=== PATIENT | male | born 1990 | race Caucasian/White ===

== ENCOUNTER 2018-12-23 20:13 | Emergency (ER) | payer OTHER ==
[2018-12-23 20:30] VITALS: RESP 18
[2018-12-23] MEDS ORDERED: SODIUM CHLORIDE 0.9% 1,000 ML IV STA ×2 (20:55→22:33)
[2018-12-23] MEDS ORDERED: ACETAMINOPHEN TAB 500 MG TAB PO STA (21:03)
--- NOTE | 2018-12-23 21:41 | XR ---
EXAMINATION TYPE: XR chest 2V DATE OF EXAM: 12/23/2018 COMPARISON: NONE HISTORY: History of diabetes, hypertension, and current tobacco use presents with fever and abdominal pain. TECHNIQUE: Frontal and lateral views of the chest are obtained. FINDINGS: There is no focal air space opacity, pleural effusion, or pneumothorax seen. The cardiac silhouette size is within normal limits. The osseous structures are intact. IMPRESSION: No acute cardiopulmonary process.
[2018-12-23 21:49] LABS: ALT 15 U/L (21-72); AST 20 U/L (17-59); Albumin 4.4 g/dL (3.5-5.0); Alkaline Phosphatase 107 U/L (38-126); Anion Gap 10 mmol/L; Blood Urea Nitrogen 13 mg/dL (9-20); Calcium 9.9 mg/dL (8.4-10.2); Carbon Dioxide 27 mmol/L (22-30); Chloride 98 mmol/L (98-107); Glucose 288 mg/dL (74-99); Lipase 25 U/L (23-300); Potassium 3.8 mmol/L (3.5-5.1); Sodium 135 mmol/L (137-145); Total Protein 7.5 g/dL (6.3-8.2)
[2018-12-23 22:01] LABS: Basophils # (A) 0.1 k/uL (0-0.2); Basophils % (A) 0 %; Eosinophils # (A) 0.1 k/uL (0-0.7); Eosinophils % (A) 1 %; HCT 46.3 % (39.0-53.0); HGB 15.8 gm/dL (13.0-17.5); Lymphocytes # (A) 2.1 k/uL (1.0-4.8); Lymphocytes % (A) 11 %; MCH 28.5 pg (25.0-35.0); MCHC 34.1 g/dL (31.0-37.0); MCV 83.5 fL (80.0-100.0); Mean Platelet Volume 7.3; Monocytes % (A) 5 %; Neutrophils # (A) 16.3 k/uL (1.3-7.7); Neutrophils % (A) 82 %; Platelet Count 212 k/uL (150-450); RBC 5.55 m/uL (4.30-5.90); RDW 14.8 % (11.5-15.5); WBC 19.7 k/uL (3.8-10.6)
[2018-12-23 22:10] LABS: Appearance,Urine Clear (Clear); Bilirubin,Urine Negative (Negative); Blood,Urine Negative (Negative); Color,Urine Yellow; Glucose,Urine (UA) 4+ (Negative); Ketones,Urine Trace (Negative); Leukocyte Esterase,Urine Negative (Negative); Mucus,Urine Few /hpf; Nitrite,Urine Negative (Negative); PH, Urine 5.5 (5.0-8.0); Protein,Urine 1+ (Negative); RBC,Urine 1 /hpf (0-5); Squamous Epithelial Cell,Urine 1 /hpf (0-4); Urobilinogen,Urine <2.0 mg/dL (<2.0); WBC,Urine 3 /hpf (0-5)
[2018-12-23 22:13] LABS: Specific Gravity,Urine >1.050 (1.001-1.035)
[2018-12-23 23:01] VITALS: BP 136/67; PULSE 105; TEMP 98.5
--- NOTE | 2018-12-23 23:09 | ED ---
General Adult HPI - General Chief complaint: Fever Stated complaint: Fever 104.5 Time Seen by Provider: 12/23/18 20:34 Source: patient, RN notes reviewed, old records reviewed Mode of arrival: ambulatory Limitations: no limitations - History of Present Illness Initial comments: 28-year-old male patient past medical history of type 2 diabetes presents to ED for fever. Patient is otherwise asymptomatic. Denies any other complaints at this time. Denies any cough congestion rhinitis abdominal pain nausea vomiting diarrhea chest pain shortness of breath. Systemic: Pt denies fatigue, myalgia, rash. Pt denies weakness, night sweats, weight loss. Neuro: Pt denies headache, visual disturbances, syncope or pre-syncope. HEENT: Pt denies ocular discharge or irritation, otalgia, rhinorrhea, pharyngitis or notable lymphadenopathy. Cardiopulmonary: Pt denies chest pain, SOB, heart palpitations, dyspnea on exertion. Abdominal/GI: Pt denies abdominal pain, n/v/d. : Pt denies dysuria, burning w/ urination, frequency/urgency. Denies new onset urinary or bowel incontinence. MSK: Pt denies myalgia, loss of strength or function in extremities. Neuro: Pt denies new onset weakness, paresthesias. - Related Data Allergies Allergy/AdvReac Type Severity Reaction Status Date / Time No Known Allergies Allergy Unverified 12/23/18 20:54 Review of Systems ROS Statement: Those systems with pertinent positive or pertinent negative responses have been documented in the HPI. ROS Other: All systems not noted in ROS Statement are negative. Past Medical History Past Medical History: Diabetes Mellitus, Hypertension History of Any Multi-Drug Resistant Organisms: None Reported Past Surgical History: No Surgical Hx Reported Past Psychological History: No Psychological Hx Reported Smoking Status: Current every day smoker Past Alcohol Use History: Occasional Past Drug Use History: None Reported General Exam - General Exam Comments Initial Comments: Constitutional: NAD, AOX3, Pt has pleasant affect. HEENT: NC/AT, trachea midline, neck supple, no lymphadenopathy. Posterior pharynx non erythematous, without exudates. External ears appear normal, without discharge. Mucous membranes moist. Eyes PERRLA, EOM intact. There is no scleral icterus. No pallor noted. Cardiopulmonary: RRR, no murmurs, rubs or gallops, no JVD noted. Lungs CTAB in anterior and posterior rangel. No peripheral edema. Abdominal exam: Abdomen soft and non-distended. Abdomen non-tender to palpation in all 4 quadrants. Bowel sounds active in LLQ. No hepatosplenomegaly. No ecchy mosis Neuro: CN II-XII grossly intact. No nuchal rigidity. MSK: No posterior calf tenderness bilaterally, homans sign negative bilaterally. Posterior tibialis and radial pulse +2 bilaterally. Sensation intact in upper and lower extremities. Full active ROM in upper and lower extremities, 5/5 stregnth. Limitations: no limitations Course Vital Signs 12/23/18 12/23/18 12/23/18 20:24 21:43 23:00 Temperature 100.0 F H 99.2 F 98.5 F Pulse Rate 129 H 115 H 105 H Respiratory 18 18 18 Rate Blood Pressure 145/83 136/67 O2 Sat by Pulse 98 100 98 Oximetry Medical Decision Making - Medical Decision Making 28-year-old male patient past medical history of type 2 diabetes presents to ED for fever. Patient is otherwise asymptomatic. Denies any other complaints at this time. Denies any cough congestion rhinitis abdominal pain nausea vomiting diarrhea chest pain shortness of breath. She vital signs displayed mild fever mild tachycardia. Improvement with antipyretic and IV fluids. Physical exam did not acute pathology. Laboratory investigations revealed leukocytosis of 19.7, likely reactive. CMP revealed a glycemia of 288. UA displayed +4 glucose. Acetone and influenza were negative. Chest x-ray revealed no acute process. Lactic acid within normal limits. Blood cultures were obtained. Patient administered 2 L normal saline. Patient continues asymptomatic a repeat evaluation. Patient will be discharged, patient will follow-up with primary care provider tomorrow. Patient return immediately to ER if condition worsens in any way or if new signs or symptoms develop. Patient verbalizes unders tanding. Case discussed in depth with Dr. Nuñez. - Lab Data Result diagrams: 12/23/18 21:20 12/23/18 21:20 Lab Results 12/23/18 12/23/18 12/23/18 Range/Units 21:20 21:20 21:20 WBC 19.7 H (3.8-10.6) k/uL RBC 5.55 (4.30-5.90) m/uL Hgb 15.8 (13.0-17.5) gm/dL Hct 46.3 (39.0-53.0) % MCV 83.5 (80.0-100.0) fL MCH 28.5 (25.0-35.0) pg MCHC 34.1 (31.0-37.0) g/dL RDW 14.8 (11.5-15.5) % Plt Count 212 (150-450) k/uL Neutrophils % 82 % Lymphocytes % 11 % Monocytes % 5 % Eosinophils % 1 % Basophils % 0 % Neutrophils # 16.3 H (1.3-7.7) k/uL Lymphocytes # 2.1 (1.0-4.8) k/uL Monocytes # 1.0 (0-1.0) k/uL Eosinophils # 0.1 (0-0.7) k/uL Basophils # 0.1 (0-0.2) k/uL Sodium 135 L (137-145) mmol/L Potassium 3.8 (3.5-5.1) mmol/L Chloride 98 (98-107) mmol/L Carbon Dioxide 27 (22-30) mmol/L Anion Gap 10 mmol/L BUN 13 (9-20) mg/dL Creatinine 0.58 L (0.66-1.25) mg/dL Est GFR (CKD-EPI)AfAm >90 (>60 ml/min/1.73 sqM) Est GFR (CKD-EPI)NonAf >90 (>60 ml/min/1.73 sqM) Glucose 288 H (74-99) mg/dL Plasma Lactic Acid Renzo 1.3 (0.7-2.0) mmol/L Calcium 9.9 (8.4-10.2) mg/dL Total Bilirubin 1.0 (0.2-1.3) mg/dL AST 20 (17-59) U/L ALT 15 L (21-72) U/L Alkaline Phosphatase 107 (38-126) U/L Total Protein 7.5 (6.3-8.2) g/dL Albumin 4.4 (3.5-5.0) g/dL Lipase 25 (23-300) U/L Urine Color Urine Appearance (Clear) Urine pH (5.0-8.0) Ur Specific [place] (1.001-1.035) Urine Protein (Negative) Urine Glucose (UA) (Negative) Urine Ketones (Negative) Urine Blood (Negative) Urine Nitrite (Negative) Urine Bilirubin (Negative) Urine Urobilinogen (<2.0) mg/dL Ur Leukocyte Esterase (Negative) Urine RBC (0-5) /hpf Urine WBC (0-5) /hpf Ur Squamous Epith Cells (0-4) /hpf Urine Mucus (None) /hpf Acetone, Qual Negative (Negative) Influenza Type A RNA (Not Detectd) Influenza Type B (PCR) (Not Detectd) 12/23/18 12/23/18 Range/Units 21:20 22:27 WBC (3.8-10.6) k/uL RBC (4.30-5.90) m/uL Hgb (13.0-17.5) gm/dL Hct (39.0-53.0) % MCV (80.0-100.0) fL MCH (25.0-35.0) pg MCHC (31.0-37.0) g/dL RDW (11.5-15.5) % Plt Count (150-450) k/uL Neutrophils % % Lymphocytes % % Monocytes % % Eosinophils % % Basophils % % Neutrophils # (1.3-7.7) k/uL Lymphocytes # (1.0-4.8) k/uL Monocytes # (0-1.0) k/uL Eosinophils # (0-0.7) k/uL Basophils # (0-0.2) k/uL Sodium (137-145) mmol/L Potassium (3.5-5.1) mmol/L Chloride (98-107) mmol/L Carbon Dioxide (22-30) mmol/L Anion Gap mmol/L BUN (9-20) mg/dL Creatinine (0.66-1.25) mg/dL Est GFR (CKD-EPI)AfAm (>60 ml/min/1.73 sqM) Est GFR (CKD-EPI)NonAf (>60 ml/min/1.73 sqM) Glucose (74-99) mg/dL Plasma Lactic Acid Renzo (0.7-2.0) mmol/L Calcium (8.4-10.2) mg/dL Total Bilirubin (0.2-1.3) mg/dL AST (17-59) U/L ALT (21-72) U/L Alkaline Phosphatase (38-126) U/L Total Protein (6.3-8.2) g/dL Albumin (3.5-5.0) g/dL Lipase (23-300) U/L Urine Color Yellow Urine Appearance Clear (Clear) Urine pH 5.5 (5.0-8.0) Ur Specific [place] >1.050 H (1.001-1.035) Urine Protein 1+ H (Negative) Urine Glucose (UA) 4+ H (Negative) Urine Ketones Trace H (Negative) Urine Blood Negative (Negative) Urine Nitrite Negative (Negative) Urine Bilirubin Negative (Negative) Urine Urobilinogen <2.0 (<2.0) mg/dL Ur Leukocyte Esterase Negative (Negative) Urine RBC 1 (0-5) /hpf Urine WBC 3 (0-5) /hpf Ur Squamous Epith Cells 1 (0-4) /hpf Urine Mucus Few H (None) /hpf Acetone, Qual (Negative) Influenza Type A RNA Not Detected (Not Detectd) Influenza Type B (PCR) Not Detected (Not Detectd) Disposition Clinical Impression: Fever Disposition: HOME SELF-CARE Condition: Stable Instructions (If sedation given, give patient instructions): Fever in Adults (ED) Additional Instructions: Patient to adhere to previously discussed treatment plan and will take medication(s) as directed. Patient to follow up with PCP in 1-2 days. Patient to return to ED if symptoms do not improve. Follow-up with primary care provider tomorrow. Return immediately to ER if new signs or symptoms develop or if condition worsens in any way. Continue to monitor blood sugar at home. Is patient prescribed a controlled substance at d/c from ED?: No Referrals: None,Stated [Primary Care Provider] - 1-2 days
== END 2018-12-23 23:35 | disposition home or self-care (01) ==
LOC: EC 20:13
DX: R50.9 Fever, unspecified (principal); R00.0 Tachycardia, unspecified; E11.9 Type 2 diabetes mellitus without complications; F17.200 Nicotine dependence, unspecified, uncomplicated; D72.829 Elevated white blood cell count, unspecified
CPT/HCPCS: 36415; 71046; 80053; 81001; 82009; 83605; 83690; 85025; 87040; 87502; 96360; 96361; 99284

== ENCOUNTER 2018-12-25 19:14 | Emergency (ER) | payer OTHER ==
--- NOTE | 2018-12-25 19:50 | ED ---
General Adult HPI - General Source: patient Mode of arrival: ambulatory Limitations: no limitations <Kyle Tucker - Last Filed: 12/25/18 23:45> <Ascencion Noel - Last Filed: 12/27/18 08:22> - General Chief complaint: Urogenital Stated complaint: Testicle Swelling Time Seen by Provider: 12/25/18 19:27 - History of Present Illness Initial comments: Patient is a 28-year-old male presenting to emergency Department with bilateral testicular swelling. Patient reports that he was at the emergency department 2 days ago for uncontrolled fever which resolved and then yesterday night he developed scrotal pain and swelling. Patient does not report any pain at rest but it is exacerbated on palpation and with movement. Patient reports tenderness on the posterior right testicle. Patient reports one episode of n ausea and vomiting yesterday. Patient denies any abdominal pain. Patient also reports pain along the right inguinal ligament. Patient denies taking any medication to relieve the pain. Patient states that he is in a monogamous relationship and is not concerned for STDs. He does report unprotected sex with his significant other who was also present. Patient denies any fever, diarrhea, chest pain, lightheadedness, dizziness. Patient denies dysuria, hematuria, hesitancy, incomplete emptying, urgency or penile discharge. Patient states that he is a gek-wjsrkda-kivtqeswe diabetic but has not taken his medication due to high cost. Patient is also diagnosed with hypertension for which he is prescribed lisinopril but has not been taking it. (Kyle Tucker) - Related Data Home Medications Medication Instructions Recorded Confirmed Janumet(Unknown) 1 tab PO DAILY 12/25/18 12/25/18 Lisinopril [Zestril] 10 mg PO DAILY 12/25/18 12/25/18 Meloxicam [Mobic] 15 mg PO DAILY 12/25/18 12/25/18 Previous Rx's Medication Instructions Recorded Doxycycline Hyclate 100 mg PO BID #28 tab 12/26/18 Allergies Allergy/AdvReac Type Severity Reaction Status Date / Time No Known Allergies Allergy Verified 12/25/18 20:32 Review of Systems ROS Other: All systems not noted in ROS Statement are negative. <Kyle Tucker - Last Filed: 12/25/18 23:45> ROS Other: All systems not noted in ROS Statement are negative. <LisajohnathanAscencion - Last Filed: 12/27/18 08:22> ROS Statement: Those systems with pertinent positive or pertinent negative responses have been documented in the HPI. Past Medical History Past Medical History: Diabetes Mellitus, Hypertension History of Any Multi-Drug Resistant Organisms: None Reported Past Surgical History: No Surgical Hx Reported Past Psychological History: No Psychological Hx Reported Smoking Status: Current every day smoker Past Alcohol Use History: Occasional Past Drug Use History: None Reported <Kyle Tucker - Last Filed: 12/25/18 23:45> General Exam Limitations: no limitations General appearance: alert, in no apparent distress Head exam: Present: atraumatic, normocephalic, normal inspection Eye exam: Present: normal appearance Neck exam: Present: normal inspection Respiratory exam: Present: normal lung sounds bilaterally Cardiovascular Exam: Present: normal rhythm, tachycardia, normal heart sounds GI/Abdominal exam: Present: soft. Absent: tenderness exam: Present: testicular tenderness, scrotal swelling (Bilateral), other (Positive cremasteric reflex bilaterally). Absent: urethral discharge External exam: Present: erythema Extremities exam: Present: normal inspection Neurological exam: Present: alert, oriented X3 Psychiatric exam: Present: normal affect, normal mood Skin exam: Present: warm, intact, normal color <CaitlinKyle - Last Filed: 12/25/18 23:45> Course Vital Signs 12/25/18 12/25/18 12/25/18 19:15 20:30 20:35 Temperature 97.9 F 99.1 F Pulse Rate 127 H 148 H Respiratory 20 22 Rate Blood Pressure 136/83 162/108 O2 Sat by Pulse 98 98 Oximetry 12/25/18 12/25/18 12/25/18 20:44 21:03 21:26 Temperature 102.6 F H Pulse Rate 144 H 149 H 130 H Respiratory 20 20 18 Rate Blood Pressure 177/80 124/85 125/87 O2 Sat by Pulse 98 96 96 Oximetry 12/25/18 12/25/18 12/25/18 21:49 22:25 22:54 Temperature 100.9 F H Pulse Rate 130 H 128 H 125 H Respiratory 22 20 18 Rate Blood Pressure 127/62 117/56 122/57 O2 Sat by Pulse 96 96 97 Oximetry 12/25/18 12/25/18 12/26/18 23:06 23:33 00:01 Temperature 98.7 F Pulse Rate 121 H 117 H Respiratory 20 18 Rate Blood Pressure 134/62 117/52 O2 Sat by Pulse 96 97 Oximetry 12/26/18 12/26/18 01:46 02:14 Temperature 98.6 F Pulse Rate 118 H 117 H Respiratory 20 18 Rate Blood Pressure 131/54 130/62 O2 Sat by Pulse 97 97 Oximetry Medical Decision Making - Lab Data Result diagrams: 12/25/18 20:45 12/25/18 20:45 <Kyle Tucker - Last Filed: 12/25/18 23:45> - Lab Data Result diagrams: 12/25/18 20:45 12/25/18 20:45 <Ascencion Noel - Last Filed: 12/27/18 08:22> - Medical Decision Making Patient is a 28-year-old male presented to the emergency department with scrotal pain and swelling. Duplex ultrasound was obtained of the scrotum. Ultrasound is negative for mass or testicular torsion but is showing varicocele on the left testicle. CBC, CMP, lactic acid were collected patient is unable to give a urine sample at the moment due to the scrotal swelling causing difficulty voiding. Patient was given 2 g of Rocephin and 100 g of doxycycline. Patient is given 3 L of fluids. 1 g of Tylenol helped control the fever. Lactate returned elevated and CBC is positive for leukocytosis. His glucose was elevated the patient was given 6 units of regular insulin. The patient's heart rate was also elevated at 150 beats per minutes he was given 20 g of labetalo l. At this moment transfer care will be delegated to Dr. Noel. (Kyle Tucker) I saw this patient in conjunction with the physician mechanic assistant. I performed ind ependent history and physical exam. Agree with case management. Patient is feeling well following fluids and antibiotics and requests to go home. Appropriate further care and follow-up as well as return parameters discussed (Ascencion Noel) - Lab Data Lab Results 12/25/18 12/25/18 12/25/18 Range/Units 20:45 20:45 20:45 WBC 19.4 H (3.8-10.6) k/uL RBC 5.26 (4.30-5.90) m/uL Hgb 14.8 (13.0-17.5) gm/dL Hct 44.6 (39.0-53.0) % MCV 84.8 (80.0-100.0) fL MCH 28.2 (25.0-35.0) pg MCHC 33.3 (31.0-37.0) g/dL RDW 14.3 (11.5-15.5) % Plt Count 209 (150-450) k/uL Neutrophils % 89 % Lymphocytes % 6 % Monocytes % 4 % Eosinophils % 0 % Basophils % 0 % Neutrophils # 17.3 H (1.3-7.7) k/uL Lymphocytes # 1.2 (1.0-4.8) k/uL Monocytes # 0.7 (0-1.0) k/uL Eosinophils # 0.1 (0-0.7) k/uL Basophils # 0.0 (0-0.2) k/uL Sodium 138 (137-145) mmol/L Potassium 4.2 (3.5-5.1) mmol/L Chloride 99 (98-107) mmol/L Carbon Dioxide 27 (22-30) mmol/L Anion Gap 12 mmol/L BUN 9 (9-20) mg/dL Creatinine 0.62 L (0.66-1.25) mg/dL Est GFR (CKD-EPI)AfAm >90 (>60 ml/min/1.73 sqM) Est GFR (CKD-EPI)NonAf >90 (>60 ml/min/1.73 sqM) Glucose 299 H (74-99) mg/dL POC Glucose (mg/dL) (75-99) mg/dL POC Glu Biomathematician ID Lactic Ac Sepsis Rflx Plasma Lactic Acid Renzo 3.6 H* (0.7-2.0) mmol/L Calcium 9.2 (8.4-10.2) mg/dL Total Bilirubin 0.7 (0.2-1.3) mg/dL AST 15 L (17-59) U/L ALT 11 L (21-72) U/L Alkaline Phosphatase 119 (38-126) U/L Total Protein 6.9 (6.3-8.2) g/dL Albumin 3.9 (3.5-5.0) g/dL Urine Color Urine Appearance (Clear) Urine pH (5.0-8.0) Ur Specific [place] (1.001-1.035) Urine Protein (Negative) Urine Glucose (UA) (Negative) Urine Ketones (Negative) Urine Blood (Negative) Urine Nitrite (Negative) Urine Bilirubin (Negative) Urine Urobilinogen (<2.0) mg/dL Ur Leukocyte Esterase (Negative) Urine RBC (0-5) /hpf Urine WBC (0-5) /hpf Ur Squamous Epith Cells (0-4) /hpf Urine Mucus (None) /hpf 12/25/18 12/25/18 12/26/18 Range/Units 22:00 23:31 00:54 WBC (3.8-10.6) k/uL RBC (4.30-5.90) m/uL Hgb (13.0-17.5) gm/dL Hct (39.0-53.0) % MCV (80.0-100.0) fL MCH (25.0-35.0) pg MCHC (31.0-37.0) g/dL RDW (11.5-15.5) % Plt Count (150-450) k/uL Neutrophils % % Lymphocytes % % Monocytes % % Eosinophils % % Basophils % % Neutrophils # (1.3-7.7) k/uL Lymphocytes # (1.0-4.8) k/uL Monocytes # (0-1.0) k/uL Eosinophils # (0-0.7) k/uL Basophils # (0-0.2) k/uL Sodium (137-145) mmol/L Potassium (3.5-5.1) mmol/L Chloride (98-107) mmol/L Carbon Dioxide (22-30) mmol/L Anion Gap mmol/L BUN (9-20) mg/dL Creatinine (0.66-1.25) mg/dL Est GFR (CKD-EPI)AfAm (>60 ml/min/1.73 sqM) Est GFR (CKD-EPI)NonAf (>60 ml/min/1.73 sqM) Glucose (74-99) mg/dL POC Glucose (mg/dL) 240 H (75-99) mg/dL POC Glu Biomathematician ID Hetal Mcmullen Lactic Ac Sepsis Rflx Y Plasma Lactic Acid Renzo 1.3 (0.7-2.0) mmol/L Calcium (8.4-10.2) mg/dL Total Bilirubin (0.2-1.3) mg/dL AST (17-59) U/L ALT (21-72) U/L Alkaline Phosphatase (38-126) U/L Total Protein (6.3-8.2) g/dL Albumin (3.5-5.0) g/dL Urine Color Urine Appearance (Clear) Urine pH (5.0-8.0) Ur Specific [place] (1.001-1.035) Urine Protein (Negative) Urine Glucose (UA) (Negative) Urine Ketones (Negative) Urine Blood (Negative) Urine Nitrite (Negative) Urine Bilirubin (Negative) Urine Urobilinogen (<2.0) mg/dL Ur Leukocyte Esterase (Negative) Urine RBC (0-5) /hpf Urine WBC (0-5) /hpf Ur Squamous Epith Cells (0-4) /hpf Urine Mucus (None) /hpf 12/26/18 Range/Units 02:03 WBC (3.8-10.6) k/uL RBC (4.30-5.90) m/uL Hgb (13.0-17.5) gm/dL Hct (39.0-53.0) % MCV (80.0-100.0) fL MCH (25.0-35.0) pg MCHC (31.0-37.0) g/dL RDW (11.5-15.5) % Plt Count (150-450) k/uL Neutrophils % % Lymphocytes % % Monocytes % % Eosinophils % % Basophils % % Neutrophils # (1.3-7.7) k/uL Lymphocytes # (1.0-4.8) k/uL Monocytes # (0-1.0) k/uL Eosinophils # (0-0.7) k/uL Basophils # (0-0.2) k/uL Sodium (137-145) mmol/L Potassium (3.5-5.1) mmol/L Chloride (98-107) mmol/L Carbon Dioxide (22-30) mmol/L Anion Gap mmol/L BUN (9-20) mg/dL Creatinine (0.66-1.25) mg/dL Est GFR (CKD-EPI)AfAm (>60 ml/min/1.73 sqM) Est GFR (CKD-EPI)NonAf (>60 ml/min/1.73 sqM) Glucose (74-99) mg/dL POC Glucose (mg/dL) (75-99) mg/dL POC Glu Biomathematician ID Lactic Ac Sepsis Rflx Plasma Lactic Acid Renzo (0.7-2.0) mmol/L Calcium (8.4-10.2) mg/dL Total Bilirubin (0.2-1.3) mg/dL AST (17-59) U/L ALT (21-72) U/L Alkaline Phosphatase (38-126) U/L Total Protein (6.3-8.2) g/dL Albumin (3.5-5.0) g/dL Urine Color Yellow Urine Appearance Clear (Clear) Urine pH 6.0 (5.0-8.0) Ur Specific [place] 1.045 H (1.001-1.035) Urine Protein 1+ H (Negative) Urine Glucose (UA) 4+ H (Negative) Urine Ketones Trace H (Negative) Urine Blood Negative (Negative) Urine Nitrite Negative (Negative) Urine Bilirubin Negative (Negative) Urine Urobilinogen 2.0 (<2.0) mg/dL Ur Leukocyte Esterase Negative (Negative) Urine RBC 2 (0-5) /hpf Urine WBC 1 (0-5) /hpf Ur Squamous Epith Cells 1 (0-4) /hpf Urine Mucus Rare H (None) /hpf Disposition <Kyle Tucker - Last Filed: 12/25/18 23:45> Is patient prescribed a controlled substance at d/c from ED?: No <Ascencion Noel - Last Filed: 12/27/18 08:22> Clinical Impression: Epididymitis Disposition: HOME SELF-CARE Condition: Good Instructions (If sedation given, give patient instructions): Epididymitis (ED) Prescriptions: Doxycycline Hyclate 100 mg PO BID #28 tab Referrals: Mackenzie Holt DO [Primary Care Provider] - 1-2 days
--- NOTE | 2018-12-25 20:41 | US ---
EXAMINATION TYPE: US scrotum with doppler. Grayscale and color Doppler Duplex imaging performed of yandel esquivel scrotum. DATE OF EXAM: 12/25/2018 COMPARISON: NONE CLINICAL HISTORY: Pain. Bilateral testicular tenderness and swelling x 2 days, fever EXAM MEASUREMENTS: TESTICLES: Right Testicle: 4.3 x 1.8 x 2.7 cm Left Testicle: 4.3 x 2.3 x 2.8 cm EPIDIDYMIS HEAD: Right Epididymis: 0.7 x 1.1 x 1.6 cm Left Epididymis: 0.7 x 1.1 x 1.5 cm Doppler performed to assess for testicular vascularity; good bilateral color flow and waveforms are s een. There is no evidence of testicular torsion. Presence of hydroceles: no Presence of varicoceles: left: mildly prominent vessels that increased with valsalva Scrotal wall thickening IMPRESSION: There is mild left-sided varicocele. No evidence of testicular torsion or mass.
[2018-12-25] MEDS ORDERED: cefTRIAXone IN SWFI 1,000 MG/10 ML SYRINGE IVP STA (20:56)
[2018-12-25] MEDS ORDERED: LABETALOL SYRINGE 5 MG/ML IVP STA (21:00)
[2018-12-25] MEDS ORDERED: SODIUM CHLORIDE 0.9% 2,000 ML IV STA (21:00)
[2018-12-25] MEDS ORDERED: ACETAMINOPHEN TAB 500 MG TAB PO STA ×2 (21:13→21:50)
[2018-12-25 21:15] LABS: Basophils % (A) 0 %; Eosinophils # (A) 0.1 k/uL (0-0.7); Eosinophils % (A) 0 %; HCT 44.6 % (39.0-53.0); HGB 14.8 gm/dL (13.0-17.5); Lymphocytes # (A) 1.2 k/uL (1.0-4.8); Lymphocytes % (A) 6 %; MCH 28.2 pg (25.0-35.0); MCHC 33.3 g/dL (31.0-37.0); MCV 84.8 fL (80.0-100.0); Mean Platelet Volume 7.4; Monocytes # (A) 0.7 k/uL (0-1.0); Monocytes % (A) 4 %; Neutrophils # (A) 17.3 k/uL (1.3-7.7); Neutrophils % (A) 89 %; Platelet Count 209 k/uL (150-450); RBC 5.26 m/uL (4.30-5.90); RDW 14.3 % (11.5-15.5); WBC 19.4 k/uL (3.8-10.6)
[2018-12-25 21:28] LABS: ALT 11 U/L (21-72); AST 15 U/L (17-59); Albumin 3.9 g/dL (3.5-5.0); Alkaline Phosphatase 119 U/L (38-126); Anion Gap 12 mmol/L; Blood Urea Nitrogen 9 mg/dL (9-20); Calcium 9.2 mg/dL (8.4-10.2); Carbon Dioxide 27 mmol/L (22-30); Chloride 99 mmol/L (98-107); Glucose 299 mg/dL (74-99); Potassium 4.2 mmol/L (3.5-5.1); Sodium 138 mmol/L (137-145); Total Bilirubin 0.7 mg/dL (0.2-1.3); Total Protein 6.9 g/dL (6.3-8.2)
[2018-12-25] MEDS ORDERED: INSULIN REGULAR 100 UNIT/ML VIAL IV ONE (22:05)
[2018-12-25] MEDS ORDERED: DOXYCYCLINE 100 MG in SODIUM CHLORIDE 0.9% 100 ML IVPB ONE (22:06)
[2018-12-25] MEDS ORDERED: SODIUM CHLORIDE 0.9% 1,000 ML IV STA (23:33)
[2018-12-25 23:36] LABS: Glucose,Whole Blood 240 mg/dL (75-99)
[2018-12-26 01:47] VITALS: TEMP 98.6
[2018-12-26 02:16] VITALS: BP 130/62; PULSE 117; RESP 18
[2018-12-26 02:16] LABS: Appearance,Urine Clear (Clear); Bilirubin,Urine Negative (Negative); Blood,Urine Negative (Negative); Color,Urine Yellow; Glucose,Urine (UA) 4+ (Negative); Ketones,Urine Trace (Negative); Leukocyte Esterase,Urine Negative (Negative); Mucus,Urine Rare /hpf; Nitrite,Urine Negative (Negative); Protein,Urine 1+ (Negative); RBC,Urine 2 /hpf (0-5); Specific Gravity,Urine 1.045 (1.001-1.035); Squamous Epithelial Cell,Urine 1 /hpf (0-4)
== END 2018-12-26 02:16 | disposition home or self-care (01) ==
LOC: EC 19:14
DX: N45.1 Epididymitis (principal); R74.0 Nonspecific elevation of levels of transaminase and lactic acid dehydrogenase [LDH]; D72.829 Elevated white blood cell count, unspecified; E11.9 Type 2 diabetes mellitus without complications; I10 Essential (primary) hypertension; F17.200 Nicotine dependence, unspecified, uncomplicated; Z79.1 Long term (current) use of non-steroidal anti-inflammatories (NSAID); Z79.84 Long term (current) use of oral hypoglycemic drugs; Z79.899 Other long term (current) drug therapy; Z53.8 Procedure and treatment not carried out for other reasons
CPT/HCPCS: 36415; 93005; 80053; 83605; 85025; 87040; 93975; 76870; 99284; 96365; 96367; 96375; 96361 ×2; J0696; 81001; 87491; 87591

== ENCOUNTER 2018-12-28 10:10 | Inpatient (IN) | payer OTHER ==
[2018-12-28] MEDS ORDERED: VANCOMYCIN 2,250 MG in SODIUM CHLORIDE 0.9% 500 ML 500 ML IVPB STA (10:47)
[2018-12-28] MEDS ORDERED: CEFEPIME 1 GM in SODIUM CHLORIDE 0.9% 50 ML IVPB STA (10:47)
[2018-12-28] MEDS ORDERED: CLINDAMYCIN 600 MG in DEXTROSE 5% IN WATER 50 ML IVPB STA ×2 (10:47)
[2018-12-28] MEDS ORDERED: SODIUM CHLORIDE 0.9% 2,000 ML IV ONE (10:47)
[2018-12-28] MEDS ORDERED: MORPHINE SULFATE 4 MG/ML SYRINGE IVP STA (10:47)
[2018-12-28] MEDS ORDERED: SODIUM CHLORIDE 0.9% 500 ML 500 ML IV ONE (10:47)
[2018-12-28] MEDS ORDERED: ONDANSETRON 4 MG/2 ML VIAL IVP STA (10:47)
--- NOTE | 2018-12-28 10:59 | ED ---
General Adult HPI - General Chief complaint: Urogenital Stated complaint: swollen testicles Time Seen by Provider: 12/28/18 10:32 Source: patient Mode of arrival: ambulatory Limitations: no limitations - History of Present Illness Initial comments: Patient is a 28-year-old male with a history of diabetes presents with a chief complaint of testicular pain as going on since . He reports having a fever that was 104 on but has been around 101 since his initial visit. Review of patient's chart shows that he was extensively worked up including blood work, blood cultures, an ultrasound of the testicles. He returns today because the pain is much worse. He states he is having severe pain, his pain is exacerbated with bending, standing, and moving. There are no alleviating factors. Timing is constant. - Related Data Home Medications Medication Instructions Recorded Confirmed Lisinopril [Zestril] 10 mg PO DAILY 12/25/18 12/28/18 sitaGLIPtin PHOS/metFORMIN HCL 1 tab PO DAILY 12/28/18 12/28/18 [Janumet Xr 100-1,000 mg Tablet] Previous Rx's Medication Instructions Recorded Doxycycline Hyclate 100 mg PO BID #28 tab 12/26/18 Allergies Allergy/AdvReac Type Severity Reaction Status Date / Time No Known Allergies Allergy Verified 12/28/18 10:53 Review of Systems ROS Statement: Those systems with pertinent positive or pertinent negative responses have been documented in the HPI. ROS Other: All systems not noted in ROS Statement are negative. Constitutional: Reports: fever, chills Genitourinary: Reports: testicular pain, testicular mass Skin: Reports: lesions, change in color Past Medical History Past Medical History: Diabetes Mellitus, Hypertension History of Any Multi-Drug Resistant Organisms: None Reported Past Surgical History: No Surgical Hx Reported Past Psychological History: No Psychological Hx Reported Smoking Status: Current every day smoker Past Alcohol Use History: Occasional Past Drug Use History: None Reported - Past Family History Mother Family Medical History: No Reported History Additional Family Medical History / Comment(s): Mother is healthy. Cancer runs in maternal grandmother's side of family and MIs run in maternal grandfather's side of family Father Additional Family Medical History / Comment(s): "heart problems" General Exam Limitations: no limitations General appearance: alert, in no apparent distress Head exam: Present: atraumatic, normocephalic Eye exam: Present: normal appearance ENT exam: Present: normal exam Neck exam: Present: normal inspection Respiratory exam: Present: normal lung sounds bilaterally. Absent: respiratory distress, wheezes Cardiovascular Exam: Present: normal rhythm, tachycardia GI/Abdominal exam: Present: soft, tenderness (Tenderness in the suprapubic region), other (Patient has erythema, crepitus of the suprapubic region.) Rectal exam: Present: other (Patient has spreading of a soft tissue infection near the rectum, skin is discollored the perineum) exam: Present: scrotal swelling, other (scrotal swelling and crepitus with necrotic skin inferiorly ) Extremities exam: Present: normal inspection Back exam: Present: normal inspection Neurological exam: Present: alert, oriented X3 Psychiatric exam: Present: normal mood Skin exam: Present: warm, dry, intact, other (see exam ) Course Vital Signs 12/28/18 12/28/18 12/28/18 10:23 12:11 12:50 Temperature 99.1 F 100.9 F H Pulse Rate 110 H 111 H 116 H Respiratory 20 18 18 Rate Blood Pressure 150/68 144/103 151/95 O2 Sat by Pulse 96 96 97 Oximetry Medical Decision Making - Medical Decision Making Patient is a 28-year-old male presents with a chief complaint of scrotal pain. This is third visit to the emergency department. 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 Case discussed with Dr. Ramirez and Dr. Bullard. Dr. Bullard will evaluate the patient and schedule debridement. patient to be admitted to medicine for diabetes control. Initial vital signs show tachycardia at 100 and tender otherwise stable. Patient given 2.5 L of IV fluid, started on vancomycin, cefepime, and clindamycin. Blood work including lactic acid, venous blood gas, and blood cultures were drawn. EKG performed at 11:12 AM shows a sinus tachycardia with a rate of 112 bpm, segs are otherwise within normal limits, no acute signs of ischemia present. 11:22 AM Case discussed with Dr. Ryan who accepts admission. Consult placed Dr. Bullard, and Dr. Leonard. 1:[address] Bullard was in the emergency department to evaluate the patient. He has a surgical plan. Patient persistently tachycardic now at 118, clinically appears stable, he is alert and oriented. Patient will be given an additional liter of IV fluid.Lab evaluation shows a leukocytosis of 16.4, venous blood gas within normal limits. Labs are otherwise significant for hyperglycemia, and alk phos of 162. Patient stable for admission to a telemetry bed - Lab Data Result diagrams: 12/28/18 11:15 12/28/18 11:15 Lab Results 12/28/18 12/28/18 12/28/18 Range/Units 11:15 11:15 11:15 WBC 16.4 H (3.8-10.6) k/uL RBC 4.73 (4.30-5.90) m/uL Hgb 13.1 (13.0-17.5) gm/dL Hct 41.3 (39.0-53.0) % MCV 87.2 (80.0-100.0) fL MCH 27.7 (25.0-35.0) pg MCHC 31.8 (31.0-37.0) g/dL RDW 14.3 (11.5-15.5) % Plt Count 273 (150-450) k/uL Neutrophils % 87 % Lymphocytes % 6 % Monocytes % 4 % Eosinophils % 1 % Basophils % 0 % Neutrophils # 14.2 H (1.3-7.7) k/uL Lymphocytes # 1.0 (1.0-4.8) k/uL Monocytes # 0.6 (0-1.0) k/uL Eosinophils # 0.2 (0-0.7) k/uL Basophils # 0.1 (0-0.2) k/uL VBG pH 7.43 H (7.31-7.41) VBG pCO2 40 (37-51) mmHg VBG HCO3 26 (24-28) mmol/L Sodium 139 (137-145) mmol/L Potassium 3.6 (3.5-5.1) mmol/L Chloride 104 (98-107) mmol/L Carbon Dioxide 26 (22-30) mmol/L Anion Gap 9 mmol/L BUN 16 (9-20) mg/dL Creatinine 0.47 L (0.66-1.25) mg/dL Est GFR (CKD-EPI)AfAm >90 (>60 ml/min/1.73 sqM) Est GFR (CKD-EPI)NonAf >90 (>60 ml/min/1.73 sqM) Glucose 261 H (74-99) mg/dL Plasma Lactic Acid Renzo (0.7-2.0) mmol/L Calcium 9.0 (8.4-10.2) mg/dL Total Bilirubin 0.4 (0.2-1.3) mg/dL AST 17 (17-59) U/L ALT 27 (21-72) U/L Alkaline Phosphatase 162 H (38-126) U/L Total Protein 6.4 (6.3-8.2) g/dL Albumin 3.2 L (3.5-5.0) g/dL 12/28/18 Range/Units 11:15 WBC (3.8-10.6) k/uL RBC (4.30-5.90) m/uL Hgb (13.0-17.5) gm/dL Hct (39.0-53.0) % MCV (80.0-100.0) fL MCH (25.0-35.0) pg MCHC (31.0-37.0) g/dL RDW (11.5-15.5) % Plt Count (150-450) k/uL Neutrophils % % Lymphocytes % % Monocytes % % Eosinophils % % Basophils % % Neutrophils # (1.3-7.7) k/uL Lymphocytes # (1.0-4.8) k/uL Monocytes # (0-1.0) k/uL Eosinophils # (0-0.7) k/uL Basophils # (0-0.2) k/uL VBG pH (7.31-7.41) VBG pCO2 (37-51) mmHg VBG HCO3 (24-28) mmol/L Sodium (137-145) mmol/L Potassium (3.5-5.1) mmol/L Chloride (98-107) mmol/L Carbon Dioxide (22-30) mmol/L Anion Gap mmol/L BUN (9-20) mg/dL Creatinine (0.66-1.25) mg/dL Est GFR (CKD-EPI)AfAm (>60 ml/min/1.73 sqM) Est GFR (CKD-EPI)NonAf (>60 ml/min/1.73 sqM) Glucose (74-99) mg/dL Plasma Lactic Acid Renzo 1.3 (0.7-2.0) mmol/L Calcium (8.4-10.2) mg/dL Total Bilirubin (0.2-1.3) mg/dL AST (17-59) U/L ALT (21-72) U/L Alkaline Phosphatase (38-126) U/L Total Protein (6.3-8.2) g/dL Albumin (3.5-5.0) g/dL Disposition Clinical Impression: Scrotal abscess, Saskia gangrene, Sepsis Disposition: ADMITTED IP TO THIS HOSP Condition: Fair Is patient prescribed a controlled substance at d/c from ED?: No Decision to Admit Reason: Admit from EC - Out of Hospital Transfer - Req. Specs Out of Hospital Transfer - Requested Specifics: Telemetry Unit
[2018-12-28] MEDS ORDERED: VANCOMYCIN IV PER PHARMACY 1 EACH MISC MISCELLANE ONE (11:00)
[2018-12-28] MEDS ORDERED: ONDANSETRON 4 MG/2 ML VIAL IVP PRN ×2 (11:19→13:19)
[2018-12-28] MEDS ORDERED: NALOXONE 0.4 MG/ML 1 ML VIAL IV PRN (11:19)
[2018-12-28 11:27] LABS: VBG PH 7.43 (7.31-7.41)
[2018-12-28 11:28] LABS: Basophils # (A) 0.1 k/uL (0-0.2); Basophils % (A) 0 %; Eosinophils # (A) 0.2 k/uL (0-0.7); Eosinophils % (A) 1 %; HCT 41.3 % (39.0-53.0); HGB 13.1 gm/dL (13.0-17.5); Lymphocytes % (A) 6 %; MCH 27.7 pg (25.0-35.0); MCHC 31.8 g/dL (31.0-37.0); MCV 87.2 fL (80.0-100.0); Mean Platelet Volume 7.1; Monocytes # (A) 0.6 k/uL (0-1.0); Monocytes % (A) 4 %; Neutrophils # (A) 14.2 k/uL (1.3-7.7); Neutrophils % (A) 87 %; Platelet Count 273 k/uL (150-450); RBC 4.73 m/uL (4.30-5.90); RDW 14.3 % (11.5-15.5); WBC 16.4 k/uL (3.8-10.6)
[2018-12-28 11:43] LABS: ALT 27 U/L (21-72); AST 17 U/L (17-59); Albumin 3.2 g/dL (3.5-5.0); Alkaline Phosphatase 162 U/L (38-126); Anion Gap 9 mmol/L; Blood Urea Nitrogen 16 mg/dL (9-20); Carbon Dioxide 26 mmol/L (22-30); Chloride 104 mmol/L (98-107); Glucose 261 mg/dL (74-99); Potassium 3.6 mmol/L (3.5-5.1); Sodium 139 mmol/L (137-145); Total Bilirubin 0.4 mg/dL (0.2-1.3); Total Protein 6.4 g/dL (6.3-8.2)
--- NOTE | 2018-12-28 12:57 | P.GSCN ---
History of Present Illness Consult date: 12/28/18 Reason for Consult: Scrotal abscess-possible Saskia's gangrene History of present illness: The patient is a 28-year-old male admitted through the emergency room for evaluation of scrotal swelling related to what appears to be a scrotal abscess with early gangrene. The patient's problem began around 12/23/2018 when he apparently was noted to have a fever at home. He came to the emergency room where he was evaluated and says that the cause of the fever was not clear. His white blood count at that time was 19,000. He returned to the emergency room on 12/25 again with a fever and at that time had scrotal pain, swelling and erythema. Scrotal ultrasound at that time showed no evidence of abscess. His white blood count was 19,400. He was given IV Rocephin and doxycycline and discharged on oral doxycycline. The pain and swelling have increased over the last 2 days and he continues to have a fever. When seen in the emergency room today he was noted to have erythema extending into the suprapubic area and groins bilaterally. There was marked scrotal swelling and what appeared to be some early necrosis of skin in the dependent midline of the scrotum. The patient has been started on vancomycin, cefepime and Cleocin and has been admitted for IV antibiotics and scrotal debridement. The patient has no previous history of scrotal infection. He has diabetes which has not been under optimal control. He says his sugars are usually in the high 200s. He says he's had no recent difficulties far as voiding or with bowel movements. Review of Systems - Constitutional Reports chills, Reports fever - Cardiovascular Denies chest pain, Denies shortness of breath, Denies syncope - Respiratory Denies cough, Denies wheezing - Gastrointestinal Reports abdominal pain (Lower abdominal and groins) - Genitourinary Reports as per HPI Past Medical History Past Medical History: Diabetes Mellitus, Hypertension Additional Past Medical History / Comment(s): NIDDM type II History of Any Multi-Drug Resistant Organisms: None Reported Past Surgical History: No Surgical Hx Reported Smoking Status: Current every day smoker - Past Family History Mother Family Medical History: No Reported History Additional Family Medical History / Comment(s): Mother is healthy. Cancer runs in maternal grandmother's side of family and MIs run in maternal grandfather's side of family Father Additional Family Medical History / Comment(s): "heart problems" Medications and Allergies Home Medications Medication Instructions Recorded Confirmed Type Lisinopril [Zestril] 10 mg PO DAILY 12/25/18 12/28/18 History Doxycycline Hyclate 100 mg PO BID #28 tab 12/26/18 12/28/18 Rx sitaGLIPtin PHOS/metFORMIN HCL 1 tab PO DAILY 12/28/18 12/28/18 History [Janumet Xr 100-1,000 mg Tablet] Allergies Allergy/AdvReac Type Severity Reaction Status Date / Time No Known Allergies Allergy Verified 12/28/18 10:53 Surgical - Exam Vital Signs Temp Pulse Resp BP Pulse Ox 99.1 F 110 H 20 150/68 96 12/28/18 10:23 12/28/18 10:23 12/28/18 10:23 12/28/18 10:23 12/28/18 10:23 - General moderate pain, obese - ENT no hearing loss - Neck no masses, no lymphadectomy - Respiratory normal respiratory effort - Abdomen Abdomen: soft, no organomegaly Hernia: none - Genitourinary other (There is moderately severe scrotal edema. There is a small (less than 1 cm (closed area of dusky skin in the midline of the dependent scrotum which could be early skin necrosis. There appears to be some weeping of fluid in the posterior scrotum but no definite purulent discharge. There is erythema of the scrotum which extends into the right and left groin and in the suprapubic area. There is no fluctuance in the scrotum or groins. The penis is edematous but otherwise unremarkable. Neither testicle could be palpated well.) Results - Labs 12/28/18 11:15 12/28/18 11:15 Abnormal Lab Results - Last 24 Hours (Table) 12/28/18 12/28/18 12/28/18 Range/Units 11:15 11:15 11:15 WBC 16.4 H (3.8-10.6) k/uL Neutrophils # 14.2 H (1.3-7.7) k/uL VBG pH 7.43 H (7.31-7.41) Creatinine 0.47 L (0.66-1.25) mg/dL Glucose 261 H (74-99) mg/dL Alkaline Phosphatase 162 H (38-126) U/L Albumin 3.2 L (3.5-5.0) g/dL Diabetes panel 12/28/18 Range/Units 11:15 Sodium 139 (137-145) mmol/L Potassium 3.6 (3.5-5.1) mmol/L Chloride 104 (98-107) mmol/L Carbon Dioxide 26 (22-30) mmol/L BUN 16 (9-20) mg/dL Creatinine 0.47 L (0.66-1.25) mg/dL Glucose 261 H (74-99) mg/dL Calcium 9.0 (8.4-10.2) mg/dL AST 17 (17-59) U/L ALT 27 (21-72) U/L Alkaline Phosphatase 162 H (38-126) U/L Total Protein 6.4 (6.3-8.2) g/dL Albumin 3.2 L (3.5-5.0) g/dL Calcium panel 12/28/18 Range/Units 11:15 Calcium 9.0 (8.4-10.2) mg/dL Albumin 3.2 L (3.5-5.0) g/dL Pituitary panel 12/28/18 Range/Units 11:15 Sodium 139 (137-145) mmol/L Potassium 3.6 (3.5-5.1) mmol/L Chloride 104 (98-107) mmol/L Carbon Dioxide 26 (22-30) mmol/L BUN 16 (9-20) mg/dL Creatinine 0.47 L (0.66-1.25) mg/dL Glucose 261 H (74-99) mg/dL Calcium 9.0 (8.4-10.2) mg/dL Adrenal panel 12/28/18 Range/Units 11:15 Sodium 139 (137-145) mmol/L Potassium 3.6 (3.5-5.1) mmol/L Chloride 104 (98-107) mmol/L Carbon Dioxide 26 (22-30) mmol/L BUN 16 (9-20) mg/dL Creatinine 0.47 L (0.66-1.25) mg/dL Glucose 261 H (74-99) mg/dL Calcium 9.0 (8.4-10.2) mg/dL Total Bilirubin 0.4 (0.2-1.3) mg/dL AST 17 (17-59) U/L ALT 27 (21-72) U/L Alkaline Phosphatase 162 H (38-126) U/L Total Protein 6.4 (6.3-8.2) g/dL Albumin 3.2 L (3.5-5.0) g/dL Assessment and Plan (1) Scrotal abscess Narrative/Plan: The patient appears to have severe cellulitis and a probable abscess in the scrotum. It's unclear whether he has necrotic tissue in the midline of the dependent portion of the scrotum. Incision and drainage of the scrotum will be performed as soon as possible. Patient will be continued on his current antibiotics pending results of the urine cultures. Current Visit: Yes Status: Acute Code(s): N49.2 - INFLAMMATORY DISORDERS OF SCROTUM SNOMED Code(s): 45395179
[2018-12-28] MEDS ORDERED: SODIUM CHLORIDE 0.9% 1,000 ML IV ONE (13:09)
[2018-12-28] MEDS ORDERED: METOCLOPRAMIDE 5 MG/ML 2 ML VIAL IVP PRN (13:19)
[2018-12-28] MEDS ORDERED: HYDROmorphone 0.5 MG/0.5 ML SYRINGE IVP PRN (13:19)
[2018-12-28] MEDS ORDERED: LIDOCAINE 1% 20 ML VIAL (10MG/ML) FOR IV START INTRADERMA PRN (13:19)
[2018-12-28] MEDS ORDERED: LACTATED RINGERS 1,000 ML IV SCH (13:30)
[2018-12-28] MEDS ORDERED: IV FLUID CONTINUATION 400 ML IV ONE (13:33)
[2018-12-28 13:44] LABS: Glucose,Whole Blood 201 mg/dL (75-99)
[2018-12-28] MEDS ORDERED: INSULIN ASPART (NovoLOG) 100 UNIT/ML VIAL SQ ONE (13:56)
[2018-12-28] MEDS ORDERED: NEOSTIGMINE 1 MG/ML 10 ML VIAL ONE (14:05)
[2018-12-28] MEDS ORDERED: SUCCINYLCHOLINE CHLORIDE 100 MG/5 ML SYR IV ONE (14:05)
[2018-12-28] MEDS ORDERED: fentaNYL (PF) 50 MCG/ML 2 ML AMP ONE (14:05)
[2018-12-28] MEDS ORDERED: LIDOCAINE 1% INJ 10MG/ML (20 ML MDV) ONE (14:05)
[2018-12-28] MEDS ORDERED: ALBUTEROL INHALER 60 PUFF/8 GM INHALER INHALATION ONE (14:05)
[2018-12-28] MEDS ORDERED: ROCURONIUM BROMIDE 10 MG/ML 10 ML VIAL IV ONE (14:05)
[2018-12-28] MEDS ORDERED: MIDAZOLAM 2 MG/2 ML VIAL ONE (14:05)
[2018-12-28] MEDS ORDERED: GLYCOPYRROLATE 0.2 MG/ML 2 ML VIAL ONE (14:05)
[2018-12-28] MEDS ORDERED: PROPOFOL 10 MG/ML 20 ML VIAL IV ONE (14:05)
[2018-12-28] MEDS ORDERED: HYDROmorphone (PF) 1 MG/ML ONE (14:05)
[2018-12-28] MEDS ORDERED: LACTATED RINGERS 1,000 ML IV ONE (14:34)
--- NOTE | 2018-12-28 16:08 | P.OP ---
Date of Procedure: 12/28/18 Preoperative Diagnosis: Scrotal abscess Postoperative Diagnosis: Scrotal and perineal abscess with necrotizing infection. Procedure(s) Performed: Scrotal and perineal exploration with drainage and excision of devitalized tissue Anesthesia: DANIA Surgeon: Florin Bullard Estimated Blood Loss (ml): 45 Pathology: other (Wound cultures) Condition: critical Disposition: ICU Indications for Procedure: The patient is a 28-year-old male with poorly controlled diabetes who has developed progressive swelling over the last 5 or 6 days. On examination there is erythema in the suprapubic region, bilateral groins and scrotum. The scrotum is edematous and there appears to be early necrosis in the dependent portion of the scrotal skin. No fluctuant tissue was noted. A scrotal ultrasound on 12/25 showed no definite abscess cavity. Scrotal exploration is planned as the findings are very suggestive of an underlying scrotal abscess. Description of Procedure: The patient was taken the operating suite where adequate general anesthesia via orotracheal intubation was instituted. The patient was placed in the disc dorsal lithotomy position with his legs suspended from padded Seven stirrups. Pneumatic compression stockings were applied to the lower legs. The lower abdomen, groins, scrotum and perineum was then prepped with Betadine solution and draped in sterile fashion. A midline scrotal incision was made in the dependent portion of the scrotum. There was a 3 mm area of skin necrosis just to the right of the midline. Just to the left of the midline was a 2 cm diameter area of dusky skin but it was unclear whether this was necrotic. The skin was thick and edematous. Beneath the skin layer were several areas of tissue which contained air. The necrotic tissue appeared to extend posteriorly and inferiorly. The areas of necrotic tissue did not appear to involve this testicles and there was no definite extension along the region of the spermatic cords. A finger could be placed posteriorly down to near the anus where it appeared that the majority of the necrotic tissue was present. The necrotic tissue was cultured and devitalized tissue was excised down to what appeared to be normal tissue. Bleeding was controlled using electrocautery. Wound was then irrigated with saline and packed with Betadine soaked gauze. A 16-Hebrew red rubber catheter was placed in the dependent portion of the perineum and attached to the skin edge with 3-0 silk for future wound irrigation. The patient left the operating room intubated and will be transferred to the intensive care unit.
[2018-12-28 16:10] LABS: Glucose,Whole Blood 201 mg/dL (75-99)
--- NOTE | 2018-12-28 16:34 | P.CNPUL ---
History of Present Illness Consult date: 12/28/18 Chief complaint: Necrotizing infection of the scrotum/swelling/pain History of present illness: A 28-year-old male patient, obese, chronic smoker, poorly controlled diabetic, presented with progressive swelling of the scrotal area for the past 5-6 days. On examination, the patient had erythema in the suprapubic region, bilateral groin and scrotum area. The scrotum was edematous and there was signs of early necrosis of the tendon portion of the scrotal skin. No flocculent tissue was noted. Ultrasound of the scrotum was done and showed no definite abscess in the cavity. Based on that, the patient was diagnosed having Saskia's gangrene and the patient was taken to the operating room and underwent a scrotal and perianal explanation with drainage and excision of devitalized tissue. The patient has a necrotizing infection. The patient was started on broad-spectrum antibiotics and the patient was given a dose of vancomycin is also on cefepime and clindamycin. In the operating room, the patient was given 3 L of IV fluids. At a time of arrival to the operating room the patient was receiving fluids in the form of normal state rate of 30 mL an hour. The patient was still intubated on a mechanical ventilator. At that point, he was oxygenating and ventilating well. He was in the volume control mode of ventilation with tidal volume of 500 with a rate of 14 FiO2 of 50% with a PEEP of 5. At that point, I decided to stop the sedation. The patient was taken off the propofol. He woke up within the next few minutes. He was wide awake and he was following commands. He had good tidal volume and his rapid shallow breathing index was less than 80. At that point, I decide to extubate the patient a Ventimask. He has no history of any obstructive sleep apnea. No chest pain. Post exhibition he was able to talk and verbalize. No stridor. One left also related, the patient would go into sleep and he would have some occasional apneic episodes along with some moderate degree of snoring. He is on morphine for pain control. Urine is dark and concentrated. Most recent blood sugar is at 201. Review of Systems ROS unobtainable: due to mental status Past Medical History Past Medical History: Diabetes Mellitus, Hypertension Additional Past Medical History / Comment(s): NIDDM type II Alex obesity, smoker, hypertension History of Any Multi-Drug Resistant Organisms: None Reported Past Surgical History: No Surgical Hx Reported Past Psychological History: No Psychological Hx Reported Smoking Status: Current every day smoker Past Alcohol Use History: Occasional Past Drug Use History: None Reported - Past Family History Mother Family Medical History: No Reported History Additional Family Medical History / Comment(s): Mother is healthy. Cancer runs in maternal grandmother's side of family and MIs run in maternal grandfather's side of family Father Additional Family Medical History / Comment(s): "heart problems" Medications and Allergies Home Medications Medication Instructions Recorded Confirmed Type Lisinopril [Zestril] 10 mg PO DAILY 12/25/18 12/28/18 History Doxycycline Hyclate 100 mg PO BID #28 tab 12/26/18 12/28/18 Rx sitaGLIPtin PHOS/metFORMIN HCL 1 tab PO DAILY 12/28/18 12/28/18 History [Janumet Xr 100-1,000 mg Tablet] Allergies Allergy/AdvReac Type Severity Reaction Status Date / Time No Known Allergies Allergy Verified 12/28/18 10:53 Physical Exam Vitals: Vital Signs Temp Pulse Pulse Resp BP BP Pulse Ox 12/28/18 13:34 99.5 F 121 H 18 151/71 93 L 12/28/18 12:50 116 H 18 151/95 97 12/28/18 12:11 100.9 F H 111 H 18 144/103 96 12/28/18 10:23 99.1 F 110 H 20 150/68 96 Intake and Output 12/28/18 12/28/18 12/28/18 06:59 14:59 22:59 Intake Total 1000 Output Total 75 Balance 1000 -75 Intake: IV 1000 Output: Estimated Blood Loss 75 Other: Weight 124.738 kg Patient is currently extubated on a Ventimask. Calm and comfortable. Still sleepy under effective anesthetics. He is arousable and he would open up his eyes and follows some simple commands. He will go back to sleep if left on stimulated. Head exam was generally normal. There was no scleral icterus or corneal arcus. Mucous membranes were moist. Neck was supple and without jugular venous distension, thyromegaly, or carotid bruits. Carotids were easily palpable bilaterally. There was no adenopathy. Patient has a Mallampati class IV and there is no stridor. No goiter or neck masses. Lungs were clear to auscultation and percussion, and with normal diaphragmatic excursion. No wheezes or rales were noted. Cardiac exam revealed the PMI to be normally situated and sized. The rhythm was regular and no extrasystoles were noted during several minutes of auscultation. The first and second heart sounds were normal and physiologic splitting of the second heart sound was noted. There were no murmurs, rubs, clicks, or gallops. Abdominal exam revealed normal bowel sounds. The abdomen was soft, non-tender, and without masses, organomegaly, or appreciable enlargement of the abdominal aorta. The perianal area is debrided and the appropriate dressing has been applied. There is some erythema extending to the suprapubic area. A Condon cath is also in place. Examination of the extremities revealed easily palpable radial, femoral and pedal pulses. There was no cyanosis, clubbing or edema. My normal skin with the exception of the perianal area is within normal limits. Neurologically the patient is following some simple commands. His notable for extremities. Not awake enough to give me a full history. Distal and that effective anesthetics. Results - Laboratory Findings CBC and BMP: 12/28/18 11:15 12/28/18 11:15 Abnormal lab findings: Abnormal Labs 12/28/18 12/28/18 12/28/18 11:15 11:15 11:15 WBC 16.4 H Neutrophils # 14.2 H VBG pH 7.43 H Creatinine 0.47 L Glucose 261 H POC Glucose (mg/dL) Alkaline Phosphatase 162 H Albumin 3.2 L 12/28/18 12/28/18 13:42 16:04 WBC Neutrophils # VBG pH Creatinine Glucose POC Glucose (mg/dL) 201 H 201 H Alkaline Phosphatase Albumin Assessment and Plan Plan: 1 scrotal and perineal abscess/necrotizing infection/Saskia's gangrene the patient is post excoriation and drainage and excision of the devitalized tissue. Postop day #0 2 ventilator management. The patient was kept intubated on a mechanical ventilator postop and extubation process took place here in the intensive care unit. The patient is currently still lethargic and sleepy. He is able to protect his airway. There is a concern of underlying obstructive sleep apnea maintenance obesity. Snoring and apneas have been noted here in the ICU. Made a CPAP at a later stage if continues to have prolonged apneas. 3 diabetes mellitus type 2, poorly controlled 4 leukocytosis 5 hypertension 6 obesity with a BMI of 41.8 and possible obstructive sleep apnea GUSTAVO The patient was extubated here in the intensive care unit. Monitor respiratory status. Keep him on a Ventimask and switch him to a nasal cannula once fully awake. No need for any further sedation. Morphine for pain control. Cover this patient with accommodation of vancomycin, cefepime and clindamycin. Awaiting cultures that were taken intraoperatively. This is likely a poly microbial infection. Will need a PICC line at a later stage. With a surgical consultation at the later stage. Urology is on the case. We'll use Humalog sliding scale coverage for blood sugar control. May need to use an insulin drip to try to control this patient's blood sugar. Heparin subcu for a DVT prophylaxis. DuoNeb treatments on the clock. Is a chronic smoker. He is showing some signs of bronchus and wheezing. He was started on bronchodilators. We'll continue to follow. Will need dressing change and local wound care and possible reexploration at a later stage. He'll be kept in ICU for now. Resuscitative patient IV fluids. Fluid rate was increased 125 mL's an hour of normal saline.
--- NOTE | 2018-12-28 17:04 | XR ---
EXAMINATION TYPE: XR chest 1V DATE OF EXAM: 12/28/2018 COMPARISON: 12/23/2018 HISTORY: Postop TECHNIQUE: Single frontal view of the chest is obtained. FINDINGS: Heart and mediastinum are normal. There is some mild atelectasis in the left midlung. The other lung rangel are clear. There is no pleural effusion. There are chest leads. Bony thorax appears intact. IMPRESSION: There is new mild atelectasis left midlung field compared to recent exam.
[2018-12-28] MEDS ORDERED: hydrALAZINE HCL 20 MG/ML 1 ML VIAL IVP PRN (17:55)
[2018-12-28] MEDS ORDERED: KETOROLAC 30 MG/ML 1 ML VIAL IVP SCH (18:00)
[2018-12-28] MEDS: INSULIN ASPART (NovoLOG) 100 UNIT/ML VIAL SQ SCH ×2 (18:46→21:18)
[2018-12-28] MEDS: LACTATED RINGERS 1,000 ML IV SCH (19:21)
[2018-12-28] MEDS ORDERED: ALPRAZolam 0.25 MG TAB PO PRN (19:42)
[2018-12-28] MEDS ORDERED: TEMAZEPAM 15 MG CAP PO PRN (19:42)
[2018-12-28] MEDS: HEPARIN SODIUM,PORCINE 5,000 UNIT/ML 1 ML VIAL SQ SCH (19:50)
[2018-12-28] MEDS ORDERED: VANCOMYCIN 2,000 MG in SODIUM CHLORIDE 0.9% 500 ML 500 ML IVPB SCH (20:00)
[2018-12-28] MEDS ORDERED: IPRATROPIUM-ALBUTEROL 3 ML NEB INHALATION SCH (20:00)
[2018-12-28] MEDS ORDERED: IPRATROPIUM-ALBUTEROL 3 ML NEB INHALATION PRN (20:00)
[2018-12-28] MEDS: IPRATROPIUM-ALBUTEROL 3 ML NEB INHALATION SCH (20:16)
[2018-12-28] MEDS ORDERED: INSULIN DETEMIR (LEVEMIR) 100 UNIT/ML SYR SQ SCH (21:00)
--- NOTE | 2018-12-28 21:08 | HP ---
HISTORY AND PHYSICAL DATE OF SERVICE: 12/28/2018 CHIEF COMPLAINTS: Swollen testicles as well as severe perineal pain. 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 The patient noted a fever a few days ago. The patient was evaluated in the ER and subsequently currently the patient noted scrotal pain and swelling and the patient came to [facility] and was admitted for further evaluation and treatment. The patient was apparently taking antibiotics in the form of doxycycline for presumed epididymitis. At the time of admission, the patient was suspected to have Fornier's gangrene and had features of early evidence of sepsis and the patient underwent extensive surgery by Urology including scrotal exploration with drainage, excision of the devitalized tissue for scrotal and perineal abscess and possibly with necrotizing infection. The patient has been extubated and monitored in ICU at this time. There is no history of any fever, rigors or chills. No history of headache, loss of consciousness, seizures. Patient was initially taking metformin for diabetes and subsequently transferred to [facility]. 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 PAST MEDICAL HISTORY: History of diabetes type 2, hypertension, history of nicotine dependence. MEDICATIONS: Prior to admission include: 1. Janumet XR 100/1000 one p.o. daily. 2. Zestril 10 mg daily. 3. Doxycycline 100 mg p.o. b.i.d. ALLERGIES: None. FAMILY HISTORY: History of cancer and myocardial infarction. SOCIAL HISTORY: History of continued ongoing smoking. Otherwise, history of occasional alcohol intake. REVIEW OF SYSTEMS: ENT: No diminished vision. No diminished hearing. CARDIOVASCULAR: S1, S2 muffled. RESPIRATORY: Breath sounds diminished in the bases. GI no nausea or vomiting. no dysuria. No hematuria. CENTRAL NERVOUS SYSTEM: No numbness or weakness. ALLERGY/IMMUNOLOGY: No asthma or hayfever. MUSCULOSKELETAL: As mentioned earlier. HEMATOLOGY/ONCOLOGY: No history of anemia. ENDOCRINE: History of diabetes. CONSTITUTIONAL: As mentioned earlier. DERMATOLOGY: Negative. RHEUMATOLOGY: Negative. PSYCHIATRY: As mentioned earlier. PHYSICAL EXAMINATION: GENERAL: Patient is alert and oriented times three. VITAL SIGNS: Pulse 135, blood pressure 160/80, respirations 20, temperature 102.7, pulse ox 98 percent Venti mask. HEENT: Conjunctivae normal. Oral mucosa moist. NECK is no jugular venous distention. No carotid bruit. No lymph node enlargement. CARDIOVASCULAR SYSTEM: S1, S2 muffled. RESPIRATORY: Breath sounds diminished in the bases. A few scattered rhonchi and crackles. ABDOMEN: Soft, nontender. No mass palpable. Examination of the perineum dressed after incision and drainage. LEGS: No edema. No swelling. NERVOUS SYSTEM: Higher functions as mentioned earlier. Moves all 4 limbs. No focal motor, or sensory deficits. LYMPHATICS: No lymph nodes palpable in the neck, axillae or groin. SKIN: As mentioned earlier. JOINTS: No active deforming arthropathy. LAB STUDIES: WBC 16.2, hemoglobin 13.1, sodium 139, potassium 3.5, glucose 261, albumin 3.2. ASSESSMENT: 1. Acute scrotal and perineal abscess with possible necrotizing infection status post scrotal perineal exploration with drainage of excision and devitalized tissue with possible sepsis present on admission. 2. Diabetes mellitus type 1, uncontrolled. 3. Increased WBC. 4. History of obesity. 5. History of nicotine dependence. 6. History of noncompliance. RECOMMENDATIONS AND DISCUSSION: In this 28-year-old gentleman who presented with multiple complex medical issues, we will monitor the patient closely, continue the current medications, management and symptomatic treatment. We will initiate broad-spectrum IV antibiotics. Closely follow with Urology, Infectious Disease and as well as Dr. Sprague from the ICU point of view. Otherwise, resume the home medications. DVT prophylaxis. Proton pump inhibitors. Obtain the cultures. We will continue the insulin currently and once the patient is stabilized, the patient will be sent on home dose of insulin also. Hemoglobin A1c also checked. Prognosis guarded because of multiple complex medical issues. Further recommendations to follow. A copy of dictation being forwarded to Dr. Holt who is the primary care physician. MMPATELL / EUGENEN: [id number] / MTDD
[2018-12-28 21:13] LABS: Glucose,Whole Blood 168 mg/dL (75-99)
[2018-12-28] MEDS: HYDROcodone/APAP 5-325MG 1 EACH TAB PO PRN (21:16)
[2018-12-28] MEDS: CEFEPIME 2 GM in SODIUM CHLORIDE 0.9% 100 ML IVPB SCH (21:22)
--- NOTE | 2018-12-28 21:54 | P.CONS ---
History of Present Illness - Reason for Consult Consult date: 12/28/18 - Chief Complaint pain in the scrotum - History of Present Illness 28-year-old male known history Diabetes mellitus type 2 that has been poorly controlled. He relates that he's had some recent medication changes and his blood sugars have not been nearly as well controlled as they were in the past. It is also related that he often will smoke 2 packs of cigarettes a day when he is stressed and working. 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 The patient relates approximately 6 days before coming to hospital he started to feel poorly with some generalized malaise low-grade fever and discomfort to his scrotum. The following days he had increasing scrotal swelling and discomfort. The day of admission he was feeling very poorly the most inferior aspect of the scrotum was extremely tender and become quite swollen and constantly presented. At the time of admission it was evident that there was some necrosis to the scrotum and urgent surgical consult with urology occurred. The patient is or even taken in the operating room and the surgical debridement has occurred to the scrotum. There was some minimal necrotizing infection and debridement has occurred. Patient was transferred to the intensive care unit shortly thereafter was extubated and is now sitting upright and talking. With this, mouth is very dry and looks forward to being able to drink water in the near future. Review of Systems HEENT:Denies headache or acute visual change. Denies sinus or mouth discomforts. Denies neck stiffness or pain. Denies significant oral cavity pain. Denies difficulty on swallowing. Mouth is dry Lungs: Denies significant shortness of breath, cough, sputum production, or hemoptysis. Cardiovascular: Denies significant shortness of breath, chest pain, chest wall pain, orthopnea, dyspnea on exertion, syncope Gastrointestinal:Denies nausea, vomiting, diarrhea, constipation, hematemesis, melena, hematochezia. No no significant change of bowel habit noticed. Musculoskeletal: denies significant myalgias or arthralgias. No new joint swelling. Denies new back pain. Skin: As per the HPI scrotal infection that is now status post surgical intervention pain is currently well controlled Neuro: Denies headache or visual change. Denies any new onset weakness or difficulty with ambulation. Denies falls or seizures. Psychiatric:Denies anxiety or depression. Endocrine: Denies significant fatigue, denies significant weight loss or weight gain. Past Medical History Past Medical History: Diabetes Mellitus, Hypertension Additional Past Medical History / Comment(s): NIDDM type II Alex obesity, smoker, hypertension History of Any Multi-Drug Resistant Organisms: None Reported Past Surgical History: No Surgical Hx Reported Past Psychological History: No Psychological Hx Reported Additional Psychological History / Comment(s): single but lives with his girlfriend. No children. No animals. At the most smokes 2 packs a day, does not want smoking cessation medication. no alcohol use. 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 No experience. no recent international travel Smoking Status: Current every day smoker Past Alcohol Use History: Occasional Past Drug Use History: None Reported - Past Family History Mother Family Medical History: No Reported History Additional Family Medical History / Comment(s): Mother is healthy. Cancer runs in maternal grandmother's side of family and MIs run in maternal grandfather's side of family Father Additional Family Medical History / Comment(s): "heart problems" Medications and Allergies Home Medications and Allergies Comment(s): Current Medications Hydrocodone Bitart/Acetaminophen ([place] 5-325) 1 each PO Q6HR PRN PRN Reason: Pain Last Admin: 12/28/18 21:16 Dose: 1 each Documented by: Albuterol/Ipratropium (Duoneb 0.5 Mg-3 Mg/3 Ml Soln) 3 ml INHALATION RT-QID [facility] Last Admin: 12/28/18 20:16 Dose: 3 ml Documented by: Albuterol/Ipratropium (Duoneb 0.5 Mg-3 Mg/3 Ml Soln) 3 ml INHALATION RT-Q2H PRN PRN Reason: Shortness Of Breath Or Wheezing Alprazolam (Xanax) 0.25 mg PO TID PRN PRN Reason: Anxiety Clonidine (Catapres) 0.1 mg PO Q4HR PRN PRN Reason: Hypertension Heparin Sodium (Porcine) (Heparin) 5,000 unit SQ Q8HR [facility] Last Admin: 12/28/18 19:50 Dose: 5,000 unit Documented by: Hydralazine HCl (Apresoline) 10 mg IVP Q4HR PRN PRN Reason: Blood Pressure - High Vancomycin HCl 2,000 mg/ (Sodium Chloride) 500 mls @ 167 mls/hr IVPB Q8H [facility] Cefepime HCl 2 gm/ Sodium (Chloride) 100 mls @ 200 mls/hr IVPB Q12HR [facility] Last Admin: 12/28/18 21:22 Dose: 200 mls/hr Documented by: Clindamycin Phosphate 600 mg/ (Dextrose/Water) 54 mls @ 50 mls/hr IVPB Q8HR [facility] Lactated Ringer's (Lactated Ringers) 1,000 mls @ 125 mls/hr IV .Q8H [facility] Last Admin: 12/28/18 19:21 Dose: 125 mls/hr Documented by: Insulin Aspart (Novolog) 0 unit SQ Q4HR [facility]; Protocol Last Admin: 12/28/18 21:18 Dose: 2 unit Documented by: Insulin Detemir (Levemir) 15 unit SQ HS [facility] Last Admin: 12/28/18 21:10 Dose: Not Given Documented by: Lidocaine HCl (.Xylocaine 1% Inj (10mg/Ml) For Iv Start) 0.1 ml INTRADERMA PER PROTOCOL PRN PRN Reason: IV Start Lisinopril (Zestril) 10 mg PO DAILY [facility] Morphine Sulfate (Morphine Sulfate (Inj)) 4 mg IV Q4HR PRN PRN Reason: Severe Pain Multivitamins (Theragran) 1 each PO DAILY@1200 [facility] Naloxone HCl (Narcan) 0.2 mg IV Q2M PRN PRN Reason: Opioid Reversal Nicotine (Habitrol 14mg/24hr Patch) 1 patch TRANSDERM DAILY [facility] Ondansetron HCl (Zofran) 4 mg IVP Q8HR PRN PRN Reason: Nausea And Vomiting Pantoprazole Sodium (Protonix) 40 mg PO AC-BRKFST [facility] Temazepam (Restoril) 15 mg PO HS PRN PRN Reason: Insomnia Home Medications Medication Instructions Recorded Confirmed Type Lisinopril [Zestril] 10 mg PO DAILY 12/25/18 12/28/18 History Doxycycline Hyclate 100 mg PO BID #28 tab 12/26/18 12/28/18 Rx sitaGLIPtin PHOS/metFORMIN HCL 1 tab PO DAILY 12/28/18 12/28/18 History [Janumet Xr 100-1,000 mg Tablet] Allergies Allergy/AdvReac Type Severity Reaction Status Date / Time No Known Allergies Allergy Verified 12/28/18 10:53 Physical Exam Vitals: Vital Signs Temp Pulse Pulse Resp BP BP Pulse Ox 12/28/18 20:24 100 12/28/18 20:23 130 H 12/28/18 20:14 129 H 15 12/28/18 19:00 122 H 19 117/65 96 12/28/18 18:00 100.2 F H 124 H 19 132/65 94 L 12/28/18 17:00 129 H 8 L 151/76 94 L 12/28/18 16:30 138 H 11 L 165/80 90 L 12/28/18 16:15 102.7 F H 134 H 20 97 12/28/18 13:34 99.5 F 121 H 18 151/71 93 L 12/28/18 12:50 116 H 18 151/95 97 12/28/18 12:11 100.9 F H 111 H 18 144/103 96 12/28/18 10:23 99.1 F 110 H 20 150/68 96 Intake and Output 12/28/18 12/28/18 12/28/18 06:59 14:59 22:59 Intake Total 1000 375 Output Total 300 Balance 1000 75 Intake: IV 1000 375 LR 375 Output: Urine 225 Estimated Blood Loss 75 Other: Voiding Method Indwelling Catheter Weight 124.738 kg HEENT: Anicteric conjunctiva are pink and moist nasal mucosa grossly intact without significant lesions, there is no thrush. Neck: The neck is supple without significant lymphadenopathy or thyromegaly. Lungs: Good bilateral air entry without significant crackles or wheezing. There is no significant bronchial sounds. There is no egophony or dullness. Heart: Regular rate and rhythm with an audible S1-S2, no S3 no S4. There is no significant murmur click or rub, PMI was nondisplaced. Abdomen: Positive bowel sounds soft and nontender without palpable masses or organomegaly. There was no guarding or rebound. Extremities: The upper extremities have excellent pulses they are symmetric, no significant petechiae or telangiectasia. No splinter hemorrhages were noted. The lower extremities are free from significant edema. The peripheral pulses were 2+ and symmetric. Neuro: Awake alert oriented to person place and time. There are no acute new gross focal sensory motor deficits. skin: The scrotum is evidence of the postop Dressing in place that is not removed since just returned from surgery. Results CBC & Chem 7: 12/28/18 11:15 12/28/18 11:15 Labs: Abnormal Lab Results - Last 24 Hours (Table) 12/28/18 12/28/18 12/28/18 Range/Units 11:15 11:15 11:15 WBC 16.4 H (3.8-10.6) k/uL Neutrophils # 14.2 H (1.3-7.7) k/uL VBG pH 7.43 H (7.31-7.41) Creatinine 0.47 L (0.66-1.25) mg/dL Glucose 261 H (74-99) mg/dL POC Glucose (mg/dL) (75-99) mg/dL Alkaline Phosphatase 162 H (38-126) U/L Albumin 3.2 L (3.5-5.0) g/dL 12/28/18 12/28/18 12/28/18 Range/Units 13:42 16:04 20:58 WBC (3.8-10.6) k/uL Neutrophils # (1.3-7.7) k/uL VBG pH (7.31-7.41) Creatinine (0.66-1.25) mg/dL Glucose (74-99) mg/dL POC Glucose (mg/dL) 201 H 201 H 168 H (75-99) mg/dL Alkaline Phosphatase (38-126) U/L Albumin (3.5-5.0) g/dL Laboratory Results WBC 16.4 k/uL (3.8-10.6) H 12/28/18 11:15 RBC 4.73 m/uL (4.30-5.90) 12/28/18 11:15 Hgb 13.1 gm/dL (13.0-17.5) 12/28/18 11:15 Hct 41.3 % (39.0-53.0) 12/28/18 11:15 MCV 87.2 fL (80.0-100.0) 12/28/18 11:15 MCH 27.7 pg (25.0-35.0) 12/28/18 11:15 MCHC 31.8 g/dL (31.0-37.0) 12/28/18 11:15 RDW 14.3 % (11.5-15.5) 12/28/18 11:15 Plt Count 273 k/uL (150-450) 12/28/18 11:15 Neutrophils % 87 % 12/28/18 11:15 Lymphocytes % 6 % 12/28/18 11:15 Monocytes % 4 % 12/28/18 11:15 Eosinophils % 1 % 12/28/18 11:15 Basophils % 0 % 12/28/18 11:15 Neutrophils # 14.2 k/uL (1.3-7.7) H 12/28/18 11:15 Lymphocytes # 1.0 k/uL (1.0-4.8) 12/28/18 11:15 Monocytes # 0.6 k/uL (0-1.0) 12/28/18 11:15 Eosinophils # 0.2 k/uL (0-0.7) 12/28/18 11:15 Basophils # 0.1 k/uL (0-0.2) 12/28/18 11:15 VBG pH 7.43 (7.31-7.41) H 12/28/18 11:15 VBG pCO2 40 mmHg (37-51) 12/28/18 11:15 VBG HCO3 26 mmol/L (24-28) 12/28/18 11:15 Sodium 139 mmol/L (137-145) 12/28/18 11:15 Potassium 3.6 mmol/L (3.5-5.1) 12/28/18 11:15 Chloride 104 mmol/L (98-107) 12/28/18 11:15 Carbon Dioxide 26 mmol/L (22-30) 12/28/18 11:15 Anion Gap 9 mmol/L 12/28/18 11:15 BUN 16 mg/dL (9-20) 12/28/18 11:15 Creatinine 0.47 mg/dL (0.66-1.25) L 12/28/18 11:15 Est GFR (CKD-EPI)AfAm >90 (>60 ml/min/1.73 sqM) 12/28/18 11:15 Est GFR (CKD-EPI)NonAf >90 (>60 ml/min/1.73 sqM) 12/28/18 11:15 Glucose 261 mg/dL (74-99) H 12/28/18 11:15 POC Glucose (mg/dL) 168 mg/dL (75-99) H 12/28/18 20:58 POC Glu Bisque Tile Burner ID Mary Hickman 12/28/18 20:58 Plasma Lactic Acid Renzo 1.3 mmol/L (0.7-2.0) 12/28/18 11:15 Calcium 9.0 mg/dL (8.4-10.2) 12/28/18 11:15 Total Bilirubin 0.4 mg/dL (0.2-1.3) 12/28/18 11:15 AST 17 U/L (17-59) 12/28/18 11:15 ALT 27 U/L (21-72) 12/28/18 11:15 Alkaline Phosphatase 162 U/L (38-126) H 12/28/18 11:15 Total Protein 6.4 g/dL (6.3-8.2) 12/28/18 11:15 Albumin 3.2 g/dL (3.5-5.0) L 12/28/18 11:15 Assessment and Plan (1) Saskia gangrene Narrative/Plan: 28-year-old male presents to Hospital with a six-day history of increasing pain and discomfort to the scrotum and eventually noticed that he was ill with fever and chills and constantly presented to the emergency center. There is evidence of necrotic area of the scrotum and was seen by urology urgently taken to the operating room. He is now status post the incision and drainage and debridement of the scrotum. Upon transfer to the ICU he remained intubated he has now been extubated and is awake and alert without acute changes. He is still having excellent pain control in the postoperative time f rame. Antibiotic therapy is appropriate this point in time with cefepime and clindamycin and vancomycin. Clindamycin to reduce toxin production. The patient forcefully is not in septic shock and hopefully with antibiotics surgery in his resuscitation will have improvement. We discussed with a girlfriend and sister the significant importance of improving his blood glucose control in a smoking cessation will be extremely important in his healing process. Hemoglobin A1c should be updated. Cultures and response to therapy will drive the antibiotic choices at discharge. When possible and will be assessed and will assist with wound care potentially negative pressure therapy can be utilized. Current Visit: Yes Status: Acute Code(s): N49.3 - SASKIA GANGRENE SNOMED Code(s): 278981116 (2) Sepsis Current Visit: Yes Status: Acute Code(s): A41.9 - SEPSIS, UNSPECIFIED ORGANISM SNOMED Code(s): 97794780 (3) Fever Current Visit: No Status: Acute Code(s): R50.9 - FEVER, UNSPECIFIED SNOMED Code(s): 360740424 (4) Uncontrolled type 2 diabetes mellitus with complication Current Visit: Yes Status: Acute Code(s): E11.8 - TYPE 2 DIABETES MELLITUS WITH UNSPECIFIED COMPLICATIONS; E11.65 - TYPE 2 DIABETES MELLITUS WITH HYPERGLYCEMIA SNOMED Code(s): 26351394
[2018-12-28] MEDS: ACETAMINOPHEN TAB 500 MG TAB PO PRN (22:38)
[2018-12-28] MEDS: MORPHINE SULFATE 4 MG/ML SYRINGE IV PRN (22:48)
[2018-12-29 00:14] LABS: Glucose,Whole Blood 193 mg/dL (75-99)
[2018-12-29] MEDS: INSULIN ASPART (NovoLOG) 100 UNIT/ML VIAL SQ SCH ×6 (00:22→22:28)
[2018-12-29] MEDS: HEPARIN SODIUM,PORCINE 5,000 UNIT/ML 1 ML VIAL SQ SCH ×3 (01:32→16:55)
[2018-12-29] MEDS: CLINDAMYCIN 600 MG in DEXTROSE 5% IN WATER 50 ML IVPB SCH ×6 (01:32→16:54)
[2018-12-29] MEDS: LACTATED RINGERS 1,000 ML IV SCH ×3 (01:38→22:21)
[2018-12-29 04:46] LABS: Glucose,Whole Blood 176 mg/dL (75-99)
[2018-12-29] MEDS: MORPHINE SULFATE 4 MG/ML SYRINGE IV PRN ×2 (05:12→11:20)
[2018-12-29 05:46] LABS: Basophils # (A) 0.1 k/uL (0-0.2); Basophils % (A) 1 %; Eosinophils # (A) 0.1 k/uL (0-0.7); Eosinophils % (A) 0 %; HGB 11.8 gm/dL (13.0-17.5); Hypochromasia Slight; Lymphocytes # (A) 1.6 k/uL (1.0-4.8); Lymphocytes % (A) 10 %; MCH 27.8 pg (25.0-35.0); MCV 89.8 fL (80.0-100.0); Mean Platelet Volume 7.1; Monocytes # (A) 0.8 k/uL (0-1.0); Monocytes % (A) 5 %; Neutrophils # (A) 13.3 k/uL (1.3-7.7); Neutrophils % (A) 81 %; Platelet Count 258 k/uL (150-450); RBC 4.23 m/uL (4.30-5.90); RDW 14.3 % (11.5-15.5); WBC 16.4 k/uL (3.8-10.6)
[2018-12-29 05:55] LABS: Anion Gap 10 mmol/L; Blood Urea Nitrogen 11 mg/dL (9-20); Calcium 8.1 mg/dL (8.4-10.2); Carbon Dioxide 24 mmol/L (22-30); Chloride 103 mmol/L (98-107); Glucose 170 mg/dL (74-99); Potassium 3.6 mmol/L (3.5-5.1); Sodium 137 mmol/L (137-145)
[2018-12-29] MEDS: VANCOMYCIN 2,000 MG in SODIUM CHLORIDE 0.9% 500 ML 500 ML IVPB SCH ×3 (06:38→22:29)
[2018-12-29] MEDS ORDERED: Potassium Replacement Protocol 1 EACH MISC MISCELLANE PRN (07:06)
[2018-12-29] MEDS ORDERED: POTASSIUM CHLORIDE ER 20 MEQ TAB.ER PO ONE (08:00)
[2018-12-29] MEDS: IPRATROPIUM-ALBUTEROL 3 ML NEB INHALATION SCH ×4 (08:20→20:47)
--- NOTE | 2018-12-29 08:52 | P.PN ---
Subjective Progress Note Date: 12/29/18 On today's evaluation of 12/29/2018, the patient is awake and alert extubated on few liters of oxygen by nasal cannula. No respiratory distress. He is hungry and he is asking for food. No altered mentation per no tachycardia. No hypotension. He is complaining still of some pain at the surgical area over his scrotum. Erythema and his superpubic area still present. The scrotum was inspected and the incision was opened inspect with a drain in place. There is no significant drainage or drainage material out of the scrotum. The patient is on a combination of antibiotics and the patient is currently on a combination of vancomycin, cefepime and clindamycin. Cultures still pending for now. Urine output is improved as the patient is receiving 125 mL of lactated Ringer on an hourly basis. No nausea. No vomiting. No other complaints otherwise for now. He is on Levemir insulin 15 units at bedtime along with a NovoLog sliding scale coverage. No issues with pain for the time being. Objective - Vital Signs Vital signs: Vital Signs Temp 97.3 F L 12/29/18 04:00 Pulse 109 H 12/29/18 08:41 Resp 16 12/29/18 07:00 BP 130/80 12/29/18 07:00 Pulse Ox 96 12/29/18 07:00 Intake & Output 12/28/18 12/29/18 12/29/18 18:59 06:59 18:59 Intake Total 1250 2390 625 Output Total 75 1057 60 Balance 1175 1333 565 Weight 124.738 kg 136.1 kg Intake: IV 1250 2200 625 Cefepime 1 gm In Sodium 100 Chloride 0.9% 50 ml @ 100 mls/hr IVPB ONCE STA Rx# :[id number] Cefepime 2 gm In Sodium 100 Chloride 0.9% 100 ml @ 200 mls/hr IVPB Q12HR [facility] Rx#:[id number] LR 250 625 Lactated Ringers 1,000 ml 875 125 @ 125 mls/hr IV .Q8H [facility] Rx#:[id number] Vancomycin 2,000 mg In 500 500 Sodium Chloride 0.9% 500 ml 500 ml @ 167 mls/hr IVPB Q8H [facility] Rx#: [id number] Tube Feeding 190 Output: Urine 1057 60 Estimated Blood Loss 75 Other: Voiding Method Indwelling Catheter Indwelling Catheter - Exam Patient is currently extubated on nasal canula . Calm and comfortable. Head exam was generally normal. There was no scleral icterus or corneal arcus. Mucous membranes were moist. Neck was supple and without jugular venous distension, thyromegaly, or carotid bruits. Carotids were easily palpable bilaterally. There was no adenopathy. Patient has a Mallampati class IV and there is no stridor. No goiter or neck masses. Lungs were clear to auscultation and percussion, and with normal diaphragmatic excursion. No wheezes or rales were noted. Cardiac exam revealed the PMI to be normally situated and sized. The rhythm was regular and no extrasystoles were noted during several minutes of auscultation. The first and second heart sounds were normal and physiologic splitting of the second heart sound was noted. There were no murmurs, rubs, clicks, or gallops. Abdominal exam revealed normal bowel sounds. The abdomen was soft, non-tender, and without masses, organomegaly, or appreciable enlargement of the abdominal a joel. The perianal area is debrided and the appropriate dressing has been applied. There is some erythema extending to the suprapubic area. A Condon cath is also in place. Examination of the extremities revealed easily palpable radial, femoral and pedal pulses. There was no cyanosis, clubbing or edema. My normal skin with the exception of the perianal area is within normal limits. Neurologically the patient is alert and awake 3 without any focal neurological deficits. - Labs CBC & Chem 7: 12/29/18 05:03 12/29/18 05:03 Labs: Abnormal Lab Results - Last 24 Hours (Table) 12/28/18 12/28/18 12/28/18 Range/Units 11:15 11:15 11:15 WBC 16.4 H (3.8-10.6) k/uL RBC (4.30-5.90) m/uL Hgb (13.0-17.5) gm/dL Hct (39.0-53.0) % Neutrophils # 14.2 H (1.3-7.7) k/uL VBG pH 7.43 H (7.31-7.41) Creatinine 0.47 L (0.66-1.25) mg/dL Glucose 261 H (74-99) mg/dL POC Glucose (mg/dL) (75-99) mg/dL Calcium (8.4-10.2) mg/dL Alkaline Phosphatase 162 H (38-126) U/L Albumin 3.2 L (3.5-5.0) g/dL 12/28/18 12/28/18 12/28/18 Range/Units 13:42 16:04 20:58 WBC (3.8-10.6) k/uL RBC (4.30-5.90) m/uL Hgb (13.0-17.5) gm/dL Hct (39.0-53.0) % Neutrophils # (1.3-7.7) k/uL VBG pH (7.31-7.41) Creatinine (0.66-1.25) mg/dL Glucose (74-99) mg/dL POC Glucose (mg/dL) 201 H 201 H 168 H (75-99) mg/dL Calcium (8.4-10.2) mg/dL Alkaline Phosphatase (38-126) U/L Albumin (3.5-5.0) g/dL 12/29/18 12/29/18 12/29/18 Range/Units 00:11 04:32 05:03 WBC 16.4 H (3.8-10.6) k/uL RBC 4.23 L (4.30-5.90) m/uL Hgb 11.8 L (13.0-17.5) gm/dL Hct 38.0 L (39.0-53.0) % Neutrophils # 13.3 H (1.3-7.7) k/uL VBG pH (7.31-7.41) Creatinine (0.66-1.25) mg/dL Glucose (74-99) mg/dL POC Glucose (mg/dL) 193 H 176 H (75-99) mg/dL Calcium (8.4-10.2) mg/dL Alkaline Phosphatase (38-126) U/L Albumin (3.5-5.0) g/dL 12/29/18 Range/Units 05:03 WBC (3.8-10.6) k/uL RBC (4.30-5.90) m/uL Hgb (13.0-17.5) gm/dL Hct (39.0-53.0) % Neutrophils # (1.3-7.7) k/uL VBG pH (7.31-7.41) Creatinine 0.49 L (0.66-1.25) mg/dL Glucose 170 H (74-99) mg/dL POC Glucose (mg/dL) (75-99) mg/dL Calcium 8.1 L (8.4-10.2) mg/dL Alkaline Phosphatase (38-126) U/L Albumin (3.5-5.0) g/dL Microbiology - Last 24 Hours (Table) 12/28/18 14:50 Gram Stain - Preliminary Other - Other Wound Culture - Preliminary 12/28/18 14:50 Gram Stain - Preliminary Other - Other Wound Culture - Preliminary 12/28/18 14:50 Gram Stain - Preliminary Scrotum Tissue Culture - Preliminary 12/28/18 14:50 Gram Stain - Preliminary Other - Other Wound Culture - Preliminary 12/28/18 23:16 Urine Culture - Preliminary Urine,Catheterized 12/28/18 14:50 Anaerobic Culture - Preliminary Scrotum 12/28/18 14:50 Anaerobic Culture - Preliminary Scrotum 12/28/18 14:50 Anaerobic Culture - Preliminary Scrotum 12/28/18 14:50 Anaerobic Culture - Preliminary Scrotum Assessment and Plan Plan: 1 scrotal and perineal abscess/necrotizing infection/Saskia's gangrene the patient is post excoriation and drainage and excision of the devitalized tissue. Postop day #1. Currently, on a combination of antibiotics utilizing cefepime and clindamycin and vancomycin. 2 ventilator management. The patient is extubated and currently on 2 L of oxygen by nasal cannula 3 diabetes mellitus type 2, poorly controlled on outpatient basis and blood sugar today is down to 170 4 leukocytosis, white cell count is at 16.4 5 hypertension 6 obesity with a BMI of 41.8 and possible obstructive sleep apnea PLAN The patient will be kept on the same antibiotic coverage. Reevaluation of the surgical wound by urology. Hemodynamically stable. Continue IV fluids. Continue monitoring this patient's condition and awaiting the results of the culture. ID is on the case. Urology on the case. We'll continue to follow.
[2018-12-29] MEDS: PANTOPRAZOLE 40 MG TABLET PO SCH (09:21)
[2018-12-29 09:23] LABS: Glucose,Whole Blood 164 mg/dL (75-99)
[2018-12-29] MEDS: CEFEPIME 2 GM in SODIUM CHLORIDE 0.9% 100 ML IVPB SCH ×2 (09:24→22:29)
[2018-12-29] MEDS: NICOTINE 14MG/24HR PATCH TRANSDERM SCH (09:24)
[2018-12-29] MEDS: ACETAMINOPHEN TAB 500 MG TAB PO PRN (09:40)
[2018-12-29] MEDS: LISINOPRIL 10 MG TAB PO SCH (09:40)
[2018-12-29] MEDS: IOPAMIDOL-300 CONTRAST 30 ML VIAL (ORAL USE) PO PRN ×2 (11:02→11:25)
--- NOTE | 2018-12-29 11:35 | P.PN ---
Progress Note - Text Progress Note Date: 12/29/18 The patient has been afebrile since early this morning. He is tachycardic but his blood pressure has remained stable. He says he has no pain unless the suprapubic and groin areas or scrotum are palpated. His glucose has been under better control and is now less than 200. White blood count is improved at 16,400. BUN/creatinine are 11/0.49. On examination the erythema in the suprapubic area and groins is unchanged from yesterday. There is a small area of dusky skin in the right groin superior to the scrotum but no definite fluctuance is palpable. There are some areas of necrotic skin in the midline of the scrotum adjacent to the incision which will eventually need debridement. I probed the incision towards the perineum and the remains of a moderate amount of necrotic material in this area. The patient is scheduled to undergo a computed tomography scan of the abdomen and pelvis early this afternoon. It's unclear at this time whether he will need additional debridement under anesthesia.
--- NOTE | 2018-12-29 12:58 | P.GSCN ---
History of Present Illness Consult date: 12/29/18 Reason for Consult: perineal abscess Requesting physician: Florin Bullard History of present illness: CHIEF COMPLAINT: perineal abscess HISTORY OF PRESENT ILLNESS: 28-year-old male admitted to the hospital with necrotizing infection of scrotum. Patient underwent exploration with drainage and excision of devitalized tissue with urology. General surgery was consulted for further management. Patient examined at the bedside with Dr. Layton. Reports pain is controlled at this time. He is hungry and is requesting to be started on a diet. PAST MEDICAL HISTORY: See list. PAST SURGICAL HISTORY: See list. SOCIAL HISTORY: No illicit drug use. REVIEW OF SYSTEMS: CONSTITUTIONAL: Denies fever or chills. HEENT: Denies blurred vision, vision changes, or eye pain. Denies hemoptysis CARDIOVASCULAR: Denies chest pain or pressure. RESPIRATORY: No shortness of breath. GASTROINTESTINAL: Refer to [facility] for pertinent findings HEMATOLOGIC: Denies bleeding disorders. GENITOURINARY: Denies any blood in urine. SKIN: Denies pruitis. Denies rash. PHYSICAL EXAM: VITAL SIGNS: Reviewed. GENERAL: Well-developed in no acute distress. HEENT: No sclera icterus. Extraocular movements grossly intact. Moist buccal mucosa. Head is atraumatic, normocephalic. ABDOMEN: Soft. Nondistended. Nontender. NEUROLOGIC: Alert and oriented. Cranial nerves II through XII grossly intact. SKIN: Surgical dressing to scrotal region. ASSESSMENT: 1. Scrotal/perineal abscess/necrotizing infection, status post exploration with drainage and excision of devitalized tissue PLAN: 1. Continue treatment of abscess per urology. Further debridements per urology service 2. Obtain CT with oral contrast 3. Dr. Layton discussed the possibility of performing diverting colostomy to allow for optimal wound healing. Will discuss further with Dr. Bullard. Nurse practitioner note has been reviewed by physician. Signing provider agrees with the documented findings, assessment, and plan of care. Past Medical History Past Medical History: Diabetes Mellitus, Hypertension Additional Past Medical History / Comment(s): NIDDM type II Alex obesity, smoker, hypertension History of Any Multi-Drug Resistant Organisms: None Reported Past Surgical History: No Surgical Hx Reported Past Psychological History: No Psychological Hx Reported Additional Psychological History / Comment(s): single but lives with his girlfriend. No children. No animals. At the most smokes 2 packs a day, does not want smoking cessation medication. no alcohol use. 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 No experience. no recent international travel Smoking Status: Current every day smoker Past Alcohol Use History: Occasional Past Drug Use History: None Reported - Past Family History Mother Family Medical History: No Reported History Additional Family Medical History / Comment(s): Mother is healthy. Cancer runs in maternal grandmother's side of family and MIs run in maternal grandfather's side of family Father Additional Family Medical History / Comment(s): "heart problems" Medications and Allergies Home Medications Medication Instructions Recorded Confirmed Type Lisinopril [Zestril] 10 mg PO DAILY 12/25/18 12/28/18 History Doxycycline Hyclate 100 mg PO BID #28 tab 12/26/18 12/28/18 Rx sitaGLIPtin PHOS/metFORMIN HCL 1 tab PO DAILY 12/28/18 12/28/18 History [Janumet Xr 100-1,000 mg Tablet] Allergies Allergy/AdvReac Type Severity Reaction Status Date / Time No Known Allergies Allergy Verified 12/28/18 10:53 Surgical - Exam Vital Signs Temp Pulse Resp BP Pulse Ox 99.1 F 110 H 20 150/68 96 12/28/18 10:23 12/28/18 10:23 12/28/18 10:23 12/28/18 10:23 12/28/18 10:23 Results - Labs 12/29/18 05:03 12/29/18 05:03 Abnormal Lab Results - Last 24 Hours (Table) 12/28/18 12/28/18 12/28/18 Range/Units 13:42 16:04 20:58 WBC (3.8-10.6) k/uL RBC (4.30-5.90) m/uL Hgb (13.0-17.5) gm/dL Hct (39.0-53.0) % Neutrophils # (1.3-7.7) k/uL Creatinine (0.66-1.25) mg/dL Glucose (74-99) mg/dL POC Glucose (mg/dL) 201 H 201 H 168 H (75-99) mg/dL Calcium (8.4-10.2) mg/dL 12/29/18 12/29/1819 Range/Units 00:11 04:32 05:03 WBC 16.4 H (3.8-10.6) k/uL RBC 4.23 L (4.30-5.90) m/uL Hgb 11.8 L (13.0-17.5) gm/dL Hct 38.0 L (39.0-53.0) % Neutrophils # 13.3 H (1.3-7.7) k/uL Creatinine (0.66-1.25) mg/dL Glucose (74-99) mg/dL POC Glucose (mg/dL) 193 H 176 H (75-99) mg/dL Calcium (8.4-10.2) mg/dL 12/29/18 12/29/18 Range/Units 05:03 09:19 WBC (3.8-10.6) k/uL RBC (4.30-5.90) m/uL Hgb (13.0-17.5) gm/dL Hct (39.0-53.0) % Neutrophils # (1.3-7.7) k/uL Creatinine 0.49 L (0.66-1.25) mg/dL Glucose 170 H (74-99) mg/dL POC Glucose (mg/dL) 164 H (75-99) mg/dL Calcium 8.1 L (8.4-10.2) mg/dL Microbiology - Last 24 Hours (Table) 12/28/18 14:50 Gram Stain - Preliminary Other - Other Wound Culture - Preliminary 12/28/18 14:50 Gram Stain - Preliminary Other - Other Wound Culture - Preliminary 12/28/18 14:50 Gram Stain - Preliminary Scrotum Tissue Culture - Preliminary 12/28/18 14:50 Gram Stain - Preliminary Other - Other Wound Culture - Preliminary 12/28/18 23:16 Urine Culture - Preliminary Urine,Catheterized 12/28/18 14:50 Anaerobic Culture - Preliminary Scrotum 12/28/18 14:50 Anaerobic Culture - Preliminary Scrotum 12/28/18 14:50 Anaerobic Culture - Preliminary Scrotum 12/28/18 14:50 Anaerobic Culture - Preliminary Scrotum Diabetes panel 12/29/18 Range/Units 05:03 Sodium 137 (137-145) mmol/L Potassium 3.6 (3.5-5.1) mmol/L Chloride 103 (98-107) mmol/L Carbon Dioxide 24 (22-30) mmol/L BUN 11 (9-20) mg/dL Creatinine 0.49 L (0.66-1.25) mg/dL Glucose 170 H (74-99) mg/dL Calcium 8.1 L (8.4-10.2) mg/dL Calcium panel 12/29/18 Range/Units 05:03 Calcium 8.1 L (8.4-10.2) mg/dL Pituitary panel 12/29/18 Range/Units 05:03 Sodium 137 (137-145) mmol/L Potassium 3.6 (3.5-5.1) mmol/L Chloride 103 (98-107) mmol/L Carbon Dioxide 24 (22-30) mmol/L BUN 11 (9-20) mg/dL Creatinine 0.49 L (0.66-1.25) mg/dL Glucose 170 H (74-99) mg/dL Calcium 8.1 L (8.4-10.2) mg/dL Adrenal panel 12/29/18 Range/Units 05:03 Sodium 137 (137-145) mmol/L Potassium 3.6 (3.5-5.1) mmol/L Chloride 103 (98-107) mmol/L Carbon Dioxide 24 (22-30) mmol/L BUN 11 (9-20) mg/dL Creatinine 0.49 L (0.66-1.25) mg/dL Glucose 170 H (74-99) mg/dL Calcium 8.1 L (8.4-10.2) mg/dL
--- NOTE | 2018-12-29 13:32 | PN ---
PROGRESS NOTE DATE OF SERVICE: 12/29/2018 This 28-year-old gentleman who was admitted with significant infection in the scrotal perineal area with features of sepsis had surgery by Urology. The patient is being closely monitored in ICU. The patient is extubated. Patient is still tachycardic. Complains of tiredness and weakness at this time. The patient had features of Saskia's gangrene. Insulin has been started for better blood sugar control. Repeat CAT scan of the abdomen and pelvis recommended by Dr. Bullard. The patient closely monitored in ICU. PAST MEDICAL HISTORY: Reviewed. REVIEW OF SYSTEMS: CARDIOVASCULAR: No angina. RESPIRATION: As mentioned earlier. GI: No nausea. : No dysuria. NERVOUS SYSTEM: No numbness or weakness. MEDICATIONS: Current medications are reviewed and include: 1. Tylenol 1000 mg q.6 p.r.n. 2. Huntley 5 mg q.6 p.r.n. 3. DuoNeb q.i.d. and p.r.n. 4. Xanax. 5. Cefepime 2 grams IV b.i.d. 6. Clindamycin 600 mg IV q.8. 7. Catapres 0.1 q.4 p.r.n. 8. Heparin 5000 subcu q.8. 9. Apresoline 10 p.r.n. 10.NovoLog. 11.Levemir 15 units subcu q.h.s. 12.Lactated Ringer's. 13.Zestril 10 mg p.o. daily. 14.Replacement protocol. 15.Narcan. 16.Habitrol 14. 17.Zofran. 18.Protonix. 19.Restoril. 20.Vancomycin 2 grams IV q.8. PHYSICAL EXAMINATION: Patient is alert and oriented x3. Pulse is 112, blood pressure 127/74, respirations 17, temperature 98.2, pulse ox 98% on 4 L. HEENT: Conjunctivae normal. NECK: No jugular venous distention. CARDIOVASCULAR: S1, S2 muffled. RESPIRATORY: Breath sounds diminished at the bases. A few scattered rhonchi and crackles. ABDOMEN: Soft, nontender. EXAMINATION OF THE PERINEUM: Status post surgery. LEGS: No edema. No swelling. NERVOUS SYSTEM: Higher functions as mentioned earlier. Moves all 4 limbs. No focal motor or sensory deficits. LYMPHATICS: No lymphadenopathy of the neck, axillae or groin. SKIN: No ulcer. JOINTS: No active deforming arthropathy. LABS: WBC 16.4, hemoglobin 11.8. Sodium 137, potassium 3.6. ASSESSMENT: 1. 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 2. Diabetes mellitus type 1, uncontrolled. 3. Increased WBC. 4. History of obesity. 5. History of nicotine dependence. 6. History of noncompliance. 7. Anemia, normocytic anemia of chronic disease. RECOMMENDATIONS AND DISCUSSION: In this 28-year-old gentleman who presented with multiple complex medical issues, we will monitor the patient closely. Continue the current medication and continues symptomatic treatment. I would continue to monitor the blood sugars and continue with scale. I would also recommend to increase the Levemir to 25 units at bedtime and continue to monitor. Hemoglobin A1c is not available. We will continue to monitor. Otherwise, closely follow with multiple consultants including Urology, Pulmonary Critical Care for ICU management as well as Infectious Disease. Prognosis guarded. Discussed with family at length. Further recommendations to follow. A copy of dictation forwarded to Dr. Holt who is the primary physician. INDU / JARRETT: [id number] /
[2018-12-29 13:39] LABS: Glucose,Whole Blood 181 mg/dL (75-99)
--- NOTE | 2018-12-29 13:43 | CT ---
EXAMINATION TYPE: CT abdomen pelvis wo con DATE OF EXAM: 12/29/2018 COMPARISON: None HISTORY: Scrotum abscess CT DLP: 1769.4 mGycm Automated exposure control for dose reduction was used. TECHNIQUE: Helical acquisition of images was performed from the lung bases through the pelvis. FINDINGS: LUNG BASES: A bilateral lower lobe infiltrate and small effusion. LIVER/GB: Liver measures greater than 20 cm and appears to be enlarged correlate for hepatomegaly no obvious gallstones. PANCREAS: No significant abnormality is seen. SPLEEN: No significant abnormality is seen. ADRENALS: No significant abnormality is seen. KIDNEYS: No hydronephrosis or nephrolithiasis. There is mild perinephritic stranding on the right.. URINARY BLADDER: Bladder wall is thickened and there is air within the bladder likely secondary to F oley catheter placement. ADENOPATHY: None visualized. OSSEOUS STRUCTURES: No significant abnormality is seen. BOWEL: Nonspecific bowel gas pattern. Appendix normal. No obvious obstruction. OTHER: There is diffuse soft tissue edema. There is a small amount of subcutaneous emphysema anterior ly within the lower pelvis which extends inferiorly into the scrotal sac. There is air within the scr otal sac diffuse soft tissue edema. Fluid in the scrotal sac suspected. Skin thickening noted. Could not exclude an ulceration of the skin. IMPRESSION: 1. Diffuse edema involving the soft tissues of the lower pelvis greater anteriorly with air mixed wit hin soft tissue extending into the scrotal sac. There also is fluid within the scrotal sac. Different ial diagnosis would include scrotal abscess as well as Saskia's gangrene. Correlate for history of diabetes. Report called to ICU nurse. 2. Air within the bladder likely secondary to the Condon catheter. 3. Nonspecific perinephric edema on the right correlate with urinalysis exclude infection. 4. Bilateral lower lobe infiltrate.
[2018-12-29] MEDS: MULTIVITAMINS, THERA 1 EACH TAB PO SCH (13:53)
[2018-12-29 16:29] LABS: Glucose,Whole Blood 144 mg/dL (75-99)
--- NOTE | 2018-12-29 17:11 | P.PN ---
Progress Note - Text Progress Note Date: 12/29/18 CT scan done this afternoon shows air along right spermatic cord into right groin area. Will proceed with repeat debridement of scrotum and right groin exploration with probable debridement later today. It is unclear whether the left groin will also require exploration.
[2018-12-29] MEDS ORDERED: PROPOFOL 10 MG/ML 20 ML VIAL IV ONE (19:04)
[2018-12-29] MEDS ORDERED: LIDOCAINE 1% INJ 10MG/ML (20 ML MDV) ONE (19:04)
[2018-12-29] MEDS ORDERED: PHENYLEPHRINE-0.9% NACL SYG 1 MG/10 ML SYRINGE ONE (19:04)
[2018-12-29] MEDS ORDERED: fentaNYL (PF) 50 MCG/ML 2 ML AMP ONE (19:04)
[2018-12-29] MEDS ORDERED: MIDAZOLAM 2 MG/2 ML VIAL ONE (19:04)
[2018-12-29] MEDS ORDERED: SUCCINYLCHOLINE CHLORIDE VIAL 200 MG/10 ML VIAL IV ONE (19:04)
[2018-12-29] MEDS ORDERED: HYDROmorphone (PF) 1 MG/ML ONE (19:04)
[2018-12-29] MEDS ORDERED: IV FLUID CONTINUATION 1,000 ML IV ONE (19:10)
[2018-12-29] MEDS ORDERED: LACTATED RINGERS 1,000 ML IV ONE ×2 (19:41→21:08)
[2018-12-29] MEDS ORDERED: ACETAMINOPHEN IV (For NPO) 1,000 MG/100 ML VIAL IVPB ONE (20:56)
[2018-12-29] MEDS ORDERED: INSULIN DETEMIR (LEVEMIR) 100 UNIT/ML SYR SQ SCH (21:00)
[2018-12-29 21:04] LABS: Glucose,Whole Blood 176 mg/dL (75-99)
--- NOTE | 2018-12-29 21:16 | P.OP ---
Date of Procedure: 12/29/18 Preoperative Diagnosis: Necrotizing fasciitis of scrotum and right inguinal canal Postoperative Diagnosis: Necrotizing fasciitis of scrotum and right inguinal canal Procedure(s) Performed: Scrotal exploration with debridement of necrotic skin, right inguinal exploration with debridement of necrotic tissue and left inguinal exploration Anesthesia: DANIA Surgeon: Florin Bullard Estimated Blood Loss (ml): 30 Pathology: none sent Condition: stable Disposition: PACU Indications for Procedure: The patient was admitted yesterday with a scrotal abscess with necrotizing fasciitis involving the posterior scrotum and perineal region. He underwent exploration with debridement of necrotic tissue yesterday. CT scan today shows air along the right spermatic cord up to the region of the pubis. Repeat exploration is planned. It is unclear whether the patient also has necrotic tissue along the left spermatic cord. Description of Procedure: The patient was taken to the operating suite where adequate general anesthesia via orotracheal intubation was instituted. The patient was placed in the dorsal lithotomy position with his legs supported on padded leg rests. Pneumatic compression stockings were applied to the lower legs. The packing and red rubbe r catheter which had been previously placed in the scrotal incision were removed. The hair in the groins was clipped. The lower abdomen, groins, scrotum and perineum was then prepped with Betadine solution and draped in a sterile fashion. There was necrotic skin to the left and right of the midline in the dependent scrotum. On the right side an area approximately 1 x 1.5 cm was excised. On th e left side an area approximately 2 x 2 centimeters was excised. The remainder of the skin appeared viable. The scrotum and perineal area was inspected. There appeared to be little if any residual necrotic tissue present. An incision was then made beginning near the right groin and extending towards the scrotum over the right spermatic cord. Several areas of necrotic fat were encountered superficially. The right spermatic cord was identified. Surrounding the spermatic cord and extending up to the region of the pubis was purulent and malodorous necrotic tissue. The necrotic tissue also extended inferiorly towards the testicle. The necrotic tissue was excised sharply. A finger was placed through the incision and directed down through the scrotal incision to allow for irrigation later. Due to the uncertainty as to whether necrotic tissue was present along the left spermatic cord it was elected to make a smaller incision lateral to the scrotum along the left spermatic cord. The incision was carried down using electrocautery to the spermatic cord. There did not appear to be any necrotic tissue in this area. A finger was placed from the groin incision down to the scrotum and no loculated areas of purulence were present. All incisions were then irrigated using normal saline. Magdalene drains were then placed through the right and left groins and directed down through the scrotum and out the scrotal incision. The drains were secured to the skin with 2-0 silk. A 16 Fr red rubber catheter was then placed through the scrotum, up through the communication alongside the right testicle and spermatic cord and up to the superior portion of the groin incision. The rubber catheter was secured to the rightscrotum with 2-0 silk. Another 16 Fr red rubber catheter was then directed posteriorly in the perianal region and secured to this left side of the scrotum with 2-0 silk. Kerlix was soaked in a Betadine and saline mixture and used to pack the right and left groin incisions and the scrotum. The patient tolerated the procedure well and left the operating room in satisfactory condition. Final sponge needle and instrument counts were reported as correct.
--- NOTE | 2018-12-29 21:51 | P.PN ---
Subjective Progress Note Date: 12/29/18 28-year-old male known history Diabetes mellitus type 2 that has been poorly controlled. He relates that he's had some recent medication changes and his blood sugars have not been nearly as well controlled as they were in the past. It is also related that he often will smoke 2 packs of cigarettes a day when he is stressed and working. 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 The patient relates approximately 6 days before coming to hospital he started to feel poorly with some generalized malaise low-grade fever and discomfort to his scrotum. The following days he had increasing scrotal swelling and discomfort. The day of admission he was feeling very poorly the most inferior aspect of the scrotum was extremely tender and become quite swollen and constantly presented. At the time of admission it was evident that there was some necrosis to the scrotum and urgent surgical consult with urology occurred. The patient is or even taken in the operating room and the surgical debridement has occurred to the scrotum. There was some minimal necrotizing infection and debridement has occurred. Patient was transferred to the intensive care unit shortly thereafter was extubated and is now sitting upright and talking. With this, mouth is very dry and looks forward to being able to drink water in the near future. 12/29/2018 the patient continues to feel somewhat poorly. There is evidence of some ongoing necrotic tissue and urology was taken to the operating room later today. Objective - Vital Signs Vital signs: Vital Signs Temp 100.9 F H 12/29/18 21:23 Pulse 128 H 12/29/18 21:31 Resp 16 12/29/18 21:31 BP 145/63 12/29/18 21:31 Pulse Ox 94 L 12/29/18 21:31 Intake & Output 12/29/18 12/29/18 12/30/18 06:59 18:59 06:59 Intake Total 2390 2950 1100 Output Total 1057 1285 420 Balance 1333 1665 680 Weight 136.1 kg Intake: IV 2200 2700 1100 Cefepime 1 gm In Sodium 100 Chloride 0.9% 50 ml @ 100 mls/hr IVPB [facility] Rx# :[id number] Cefepime 2 gm In Sodium 100 100 Chloride 0.9% 100 ml @ 200 mls/hr IVPB Q12HR [facility] Rx#:[id number] Clindamycin 600 mg In 100 Dextrose 5% in Water 50 ml @ 50 mls/hr IVPB Q8HR [facility] Rx#:[id number] LR 625 Lactated Ringers 1,000 ml 875 1500 @ 125 mls/hr IV .Q8H [facility] Rx#:[id number] Vancomycin 2,000 mg In 500 1000 Sodium Chloride 0.9% 500 ml 500 ml @ 167 mls/hr IVPB Q8H [facility] Rx#: [id number] Oral 250 Tube Feeding 190 Output: Urine 1057 1285 400 Estimated Blood Loss 20 Other: Voiding Method Indwelling Catheter Indwelling Catheter - Exam HEENT: Anicteric conjunctiva are pink and moist nasal mucosa grossly intact without significant lesions, there is no thrush. Neck: The neck is supple without significant lymphadenopathy or thyromegaly. Lungs: Good bilateral air entry without significant crackles or wheezing. There is no significant bronchial sounds. There is no egophony or dullness. Heart: Regular rate and rhythm with an audible S1-S2, no S3 no S4. There is no significant murmur click or rub, PMI was nondisplaced. Abdomen: Positive bowel sounds soft and nontender without palpable masses or organomegaly. There was no guarding or rebound. Extremities: The upper extremities have excellent pulses they are symmetric, no significant petechiae or telangiectasia. No splinter hemorrhages were noted. The lower extremities are free from significant edema. The peripheral pulses were 2+ and symmetric. Neuro: Awake alert oriented to person place and time. There are no acute new gross focal sensory motor deficits. skin: The scrotum is evidence of the current dressing, and the very base of the scrotum veins evidence of some necrotic tissue - Labs CBC & Chem 7: 12/29/18 05:03 12/29/18 05:03 Labs: Abnormal Lab Results - Last 24 Hours (Table) 12/29/18 12/29/18 12/29/18 Range/Units 00:11 04:32 05:03 WBC 16.4 H (3.8-10.6) k/uL RBC 4.23 L (4.30-5.90) m/uL Hgb 11.8 L (13.0-17.5) gm/dL Hct 38.0 L (39.0-53.0) % Neutrophils # 13.3 H (1.3-7.7) k/uL Creatinine (0.66-1.25) mg/dL Glucose (74-99) mg/dL POC Glucose (mg/dL) 193 H 176 H (75-99) mg/dL Calcium (8.4-10.2) mg/dL 12/29/18 12/29/18 12/29/18 Range/Units 05:03 09:19 13:35 WBC (3.8-10.6) k/uL RBC (4.30-5.90) m/uL Hgb (13.0-17.5) gm/dL Hct (39.0-53.0) % Neutrophils # (1.3-7.7) k/uL Creatinine 0.49 L (0.66-1.25) mg/dL Glucose 170 H (74-99) mg/dL POC Glucose (mg/dL) 164 H 181 H (75-99) mg/dL Calcium 8.1 L (8.4-10.2) mg/dL 12/29/18 12/29/18 Range/Units 16:03 21:01 WBC (3.8-10.6) k/uL RBC (4.30-5.90) m/uL Hgb (13.0-17.5) gm/dL Hct (39.0-53.0) % Neutrophils # (1.3-7.7) k/uL Creatinine (0.66-1.25) mg/dL Glucose (74-99) mg/dL POC Glucose (mg/dL) 144 H 176 H (75-99) mg/dL Calcium (8.4-10.2) mg/dL Microbiology - Last 24 Hours (Table) 12/28/18 14:50 Gram Stain - Preliminary Other - Other Wound Culture - Preliminary 12/28/18 14:50 Gram Stain - Preliminary Other - Other Wound Culture - Preliminary 12/28/18 14:50 Gram Stain - Preliminary Other - Other Wound Culture - Preliminary 12/28/18 11:15 Blood Culture - Preliminary Blood No Growth after 24 hours 12/28/18 14:50 Gram Stain - Preliminary Scrotum Tissue Culture - Preliminary 12/28/18 23:16 Urine Culture - Preliminary Urine,Catheterized 12/28/18 14:50 Anaerobic Culture - Preliminary Scrotum 12/28/18 14:50 Anaerobic Culture - Preliminary Scrotum 12/28/18 14:50 Anaerobic Culture - Preliminary Scrotum 12/28/18 14:50 Anaerobic Culture - Preliminary Scrotum Laboratory Results WBC 16.4 k/uL (3.8-10.6) H 12/29/18 05:03 RBC 4.23 m/uL (4.30-5.90) L 12/29/18 05:03 Hgb 11.8 gm/dL (13.0-17.5) L 12/29/18 05:03 Hct 38.0 % (39.0-53.0) L 12/29/18 05:03 MCV 89.8 fL (80.0-100.0) 12/29/18 05:03 MCH 27.8 pg (25.0-35.0) 12/29/18 05:03 MCHC 31.0 g/dL (31.0-37.0) 12/29/18 05:03 RDW 14.3 % (11.5-15.5) 12/29/18 05:03 Plt Count 258 k/uL (150-450) 12/29/18 05:03 Neutrophils % 81 % 12/29/18 05:03 Lymphocytes % 10 % 12/29/18 05:03 Monocytes % 5 % 12/29/18 05:03 Eosinophils % 0 % 12/29/18 05:03 Basophils % 1 % 12/29/18 05:03 Neutrophils # 13.3 k/uL (1.3-7.7) H 12/29/18 05:03 Lymphocytes # 1.6 k/uL (1.0-4.8) 12/29/18 05:03 Monocytes # 0.8 k/uL (0-1.0) 12/29/18 05:03 Eosinophils # 0.1 k/uL (0-0.7) 12/29/18 05:03 Basophils # 0.1 k/uL (0-0.2) 12/29/18 05:03 Hypochromasia Slight 12/29/18 05:03 VBG pH 7.43 (7.31-7.41) H 12/28/18 11:15 VBG pCO2 40 mmHg (37-51) 12/28/18 11:15 VBG HCO3 26 mmol/L (24-28) 12/28/18 11:15 Sodium 137 mmol/L (137-145) 12/29/18 05:03 Potassium 3.6 mmol/L (3.5-5.1) 12/29/18 05:03 Chloride 103 mmol/L (98-107) 12/29/18 05:03 Carbon Dioxide 24 mmol/L (22-30) 12/29/18 05:03 Anion Gap 10 mmol/L 12/29/18 05:03 BUN 11 mg/dL (9-20) 12/29/18 05:03 Creatinine 0.49 mg/dL (0.66-1.25) L 12/29/18 05:03 Est GFR (CKD-EPI)AfAm >90 (>60 ml/min/1.73 sqM) 12/29/18 05:03 Est GFR (CKD-EPI)NonAf >90 (>60 ml/min/1.73 sqM) 12/29/18 05:03 Glucose 170 mg/dL (74-99) H 12/29/18 05:03 POC Glucose (mg/dL) 176 mg/dL (75-99) H 12/29/18 21:01 POC Glu Office Services Clerk ID Melinda Vera 12/29/18 21:01 Plasma Lactic Acid Renzo 1.3 mmol/L (0.7-2.0) 12/28/18 11:15 Calcium 8.1 mg/dL (8.4-10.2) L 12/29/18 05:03 Total Bilirubin 0.4 mg/dL (0.2-1.3) 12/28/18 11:15 AST 17 U/L (17-59) 12/28/18 11:15 ALT 27 U/L (21-72) 12/28/18 11:15 Alkaline Phosphatase 162 U/L (38-126) H 12/28/18 11:15 Total Protein 6.4 g/dL (6.3-8.2) 12/28/18 11:15 Albumin 3.2 g/dL (3.5-5.0) L 12/28/18 11:15 Microbiology 12/28/18 14:50 Other - Other Gram Stain - Preliminary 12/28/18 14:50 Other - Other Wound Culture - Preliminary 12/28/18 14:50 Other - Other Gram Stain - Preliminary 12/28/18 14:50 Other - Other Wound Culture - Preliminary 12/28/18 14:50 Other - Other Gram Stain - Preliminary 12/28/18 14:50 Other - Other Wound Culture - Preliminary 12/28/18 11:15 Blood Blood Culture - Preliminary No Growth after 24 hours 12/28/18 14:50 Scrotum Gram Stain - Preliminary 12/28/18 14:50 Scrotum Tissue Culture - Preliminary 12/28/18 23:16 Urine,Catheterized Urine Culture - Preliminary 12/28/18 14:50 Scrotum Anaerobic Culture - Preliminary 12/28/18 14:50 Scrotum Anaerobic Culture - Preliminary 12/28/18 14:50 Scrotum Anaerobic Culture - Preliminary 12/28/18 14:50 Scrotum Anaerobic Culture - Preliminary Assessment and Plan (1) Saskia gangrene Narrative/Plan: 28-year-old male presents to Hospital with a six-day history of increasing pain and discomfort to the scrotum and eventually noticed that he was ill with fever and chills and constantly presented to the emergency center. There is evidence of necrotic area of the scrotum and was seen by urology urg ently taken to the operating room. He is now status post the incision and drainage and debridement of the scrotum. Upon transfer to the ICU he remained intubated he has now been extubated and is awake and alert without acute changes. He is still having excellent pain control in the postoperative time frame. Antibiotic therapy is appropriate this point in time with cefepime and clindamycin and vancomycin. Clindamycin to reduce toxin production. The patient forcefully is not in septic shock and hopefully with antibiotics surgery in his resuscitation will have improvement. We discussed with a girlfriend and sister the significant importance of improving his blood glucose control in a smoking cessation will be extremely important in his healing process. Hemoglobin A1c should be updated. Cultures and response to therapy will drive the antibiotic choices at discharge. When possible and will be assessed and will assist with wound care potentially negative pressure therapy can be utilized. 12/29/2018 the patient is resting comfortably in fever has improved. However there remains some necrotic tissue at the base of the prior debridement site of the scrotum. Urology has evaluated with taking back to the operating room later this afternoon or early evening for further debridement. Cultures are in process and remains under broad-spectrum antibiotic therapy at this time. Blood glucose control is improving. The patient's family is present and we discussed the absolute importance of glucose control after his discharge to allow healing and prevent further infections such as this. Case management team discussions occurred, patient many wound VAC after discharge which may be challenging. As would IV antibiotic therapy. Current Visit: Yes Status: Acute Code(s): N49.3 - SASKIA GANGRENE SNOMED Code(s): 850670832 (2) Sepsis Current Visit: Yes Status: Acute Code(s): A41.9 - SEPSIS, UNSPECIFIED ORGANISM SNOMED Code(s): 74192771 (3) Fever Current Visit: No Status: Acute Code(s): R50.9 - FEVER, UNSPECIFIED SNOMED Code(s): 297235282 (4) Uncontrolled type 2 diabetes mellitus with complication Current Visit: Yes Status: Acute Code(s): E11.8 - TYPE 2 DIABETES MELLITUS WITH UNSPECIFIED COMPLICATIONS; E11.65 - TYPE 2 DIABETES MELLITUS WITH HYPERGLYCEMIA SNOMED Code(s): 55240454
[2018-12-29 23:04] LABS: Glucose,Whole Blood 181 mg/dL (75-99)
[2018-12-30 00:12] LABS: Glucose,Whole Blood 175 mg/dL (75-99)
[2018-12-30] MEDS: CLINDAMYCIN 600 MG in DEXTROSE 5% IN WATER 50 ML IVPB SCH ×8 (00:15→23:53)
[2018-12-30] MEDS: HEPARIN SODIUM,PORCINE 5,000 UNIT/ML 1 ML VIAL SQ SCH ×3 (00:15→16:23)
[2018-12-30] MEDS: INSULIN ASPART (NovoLOG) 100 UNIT/ML VIAL SQ SCH ×6 (00:27→20:51)
[2018-12-30] MEDS: cloNIDine HCL 0.1 MG TAB PO PRN ×2 (01:30→13:29)
[2018-12-30] MEDS: MORPHINE SULFATE 4 MG/ML SYRINGE IV PRN ×3 (03:42→17:32)
[2018-12-30] MEDS: LACTATED RINGERS 1,000 ML IV SCH ×3 (04:28→21:07)
[2018-12-30 04:55] LABS: Glucose,Whole Blood 174 mg/dL (75-99)
[2018-12-30] MEDS ORDERED: VANCOMYCIN TROUGH DUE 1 EACH MISC MISCELLANE ONE (06:00)
[2018-12-30 06:04] LABS: Basophils % (A) 0 %; Eosinophils # (A) 0.1 k/uL (0-0.7); Eosinophils % (A) 1 %; HCT 36.3 % (39.0-53.0); HGB 11.4 gm/dL (13.0-17.5); Hypochromasia Slight; Lymphocytes # (A) 1.4 k/uL (1.0-4.8); Lymphocytes % (A) 9 %; MCH 28.2 pg (25.0-35.0); MCHC 31.3 g/dL (31.0-37.0); Mean Platelet Volume 6.8; Monocytes # (A) 0.4 k/uL (0-1.0); Monocytes % (A) 3 %; Neutrophils # (A) 13.3 k/uL (1.3-7.7); Neutrophils % (A) 85 %; Platelet Count 278 k/uL (150-450); RBC 4.03 m/uL (4.30-5.90); RDW 14.8 % (11.5-15.5); WBC 15.6 k/uL (3.8-10.6)
[2018-12-30 06:20] LABS: Anion Gap 5 mmol/L; Blood Urea Nitrogen 10 mg/dL (9-20); Calcium 8.3 mg/dL (8.4-10.2); Carbon Dioxide 29 mmol/L (22-30); Chloride 102 mmol/L (98-107); Glucose 160 mg/dL (74-99); Potassium 3.8 mmol/L (3.5-5.1); Sodium 136 mmol/L (137-145)
[2018-12-30] MEDS: VANCOMYCIN 2,000 MG in SODIUM CHLORIDE 0.9% 500 ML 500 ML IVPB SCH ×3 (06:35→23:15)
[2018-12-30] MEDS: POTASSIUM CHLORIDE ER 20 MEQ TAB.ER PO SCH ×2 (06:35→09:20)
[2018-12-30 07:15] LABS: Glucose,Whole Blood 155 mg/dL (75-99)
[2018-12-30] MEDS: PANTOPRAZOLE 40 MG TABLET PO SCH (09:19)
[2018-12-30] MEDS: CEFEPIME 2 GM in SODIUM CHLORIDE 0.9% 100 ML IVPB SCH ×2 (09:21→20:50)
[2018-12-30] MEDS: LISINOPRIL 10 MG TAB PO SCH (09:21)
[2018-12-30] MEDS: IPRATROPIUM-ALBUTEROL 3 ML NEB INHALATION SCH ×4 (09:26→20:31)
[2018-12-30 11:32] LABS: Glucose,Whole Blood 150 mg/dL (75-99)
[2018-12-30] MEDS: NICOTINE 14MG/24HR PATCH TRANSDERM SCH (11:45)
[2018-12-30] MEDS: MULTIVITAMINS, THERA 1 EACH TAB PO SCH (11:46)
--- NOTE | 2018-12-30 13:20 | P.PN ---
Subjective Progress Note Date: 12/30/18 CHIEF COMPLAINT: perineal abscess HISTORY OF PRESENT ILLNESS: 28-year-old male admitted to the hospital with necrotizing infection of scrotum. Patient underwent exploration with drainage and excision of devitalized tissue with urology on 12/28/18. Patient went back to OR yesterday for scrotal exploration with debridement of necrotic skin, right inguinal exploration with debridement of necrotic tissue and left inguinal exploration. Patient reports pain is tolerable. WBC 15.6. PHYSICAL EXAM: VITAL SIGNS: Reviewed. GENERAL: Well-developed in no acute distress. HEENT: No sclera icterus. Extraocular movements grossly intact. Moist buccal mucosa. Head is atraumatic, normocephalic. ABDOMEN: Soft. Nondistended. Nontender. NEUROLOGIC: Alert and oriented. Cranial nerves II through XII grossly intact. SKIN: Midline scrotal incision with packing. Bilateral inguinal incisions with anthony drains. No necrotic tissue visualized. ASSESSMENT: 1. Scrotal/perineal abscess/necrotizing infection PLAN: 1. Continue treatment of abscess per urology. Further debridements per urology service 2. No plans for diverting colostomy at this time. Will continue to follow. Nurse practitioner note has been reviewed by physician. Signing provider agrees with the documented findings, assessment, and plan of care. Objective - Vital Signs Vital signs: Vital Signs Temp 98.5 F 12/30/18 12:00 Pulse 105 H 12/30/18 12:00 Resp 16 12/30/18 12:00 BP 153/69 12/30/18 12:00 Pulse Ox 96 12/30/18 12:00 Intake & Output 12/29/18 12/30/18 12/30/18 18:59 06:59 18:59 Intake Total 2950 3425 900 Output Total 1285 1285 810 Balance 1665 2140 90 Weight 135 kg 135 kg Intake: IV 2700 2825 900 Cefepime 2 gm In Sodium 100 100 100 Chloride 0.9% 100 ml @ 200 mls/hr IVPB Q12HR [facility] Rx#:[id number] Clindamycin 600 mg In 100 50 Dextrose 5% in Water 50 ml @ 50 mls/hr IVPB Q8HR [facility] Rx#:[id number] Lactated Ringers 1,000 ml 1500 1125 750 @ 125 mls/hr IV .Q8H [facility] Rx#:[id number] Vancomycin 2,000 mg In 1000 500 Sodium Chloride 0.9% 500 ml 500 ml @ 167 mls/hr IVPB Q8H [facility] Rx#: [id number] Oral 250 600 Output: Urine 1285 1265 810 Estimated Blood Loss 20 Other: Voiding Method Indwelling Catheter Indwelling Catheter Indwelling Catheter - Labs CBC & Chem 7: 12/30/18 05:51 12/30/18 05:51 Labs: Abnormal Lab Results - Last 24 Hours (Table) 12/29/18 12/29/18 12/29/18 Range/Units 13:35 16:03 21:01 WBC (3.8-10.6) k/uL RBC (4.30-5.90) m/uL Hgb (13.0-17.5) gm/dL Hct (39.0-53.0) % Neutrophils # (1.3-7.7) k/uL Sodium (137-145) mmol/L Creatinine (0.66-1.25) mg/dL Glucose (74-99) mg/dL POC Glucose (mg/dL) 181 H 144 H 176 H (75-99) mg/dL Calcium (8.4-10.2) mg/dL 12/29/18 12/30/18 12/30/18 Range/Units 22:13 00:10 04:29 WBC (3.8-10.6) k/uL RBC (4.30-5.90) m/uL Hgb (13.0-17.5) gm/dL Hct (39.0-53.0) % Neutrophils # (1.3-7.7) k/uL Sodium (137-145) mmol/L Creatinine (0.66-1.25) mg/dL Glucose (74-99) mg/dL POC Glucose (mg/dL) 181 H 175 H 174 H (75-99) mg/dL Calcium (8.4-10.2) mg/dL 12/30/18 12/30/18 12/30/18 Range/Units 05:51 05:51 07:12 WBC 15.6 H (3.8-10.6) k/uL RBC 4.03 L (4.30-5.90) m/uL Hgb 11.4 L (13.0-17.5) gm/dL Hct 36.3 L (39.0-53.0) % Neutrophils # 13.3 H (1.3-7.7) k/uL Sodium 136 L (137-145) mmol/L Creatinine 0.53 L (0.66-1.25) mg/dL Glucose 160 H (74-99) mg/dL POC Glucose (mg/dL) 155 H (75-99) mg/dL Calcium 8.3 L (8.4-10.2) mg/dL 12/30/18 Range/Units 11:18 WBC (3.8-10.6) k/uL RBC (4.30-5.90) m/uL Hgb (13.0-17.5) gm/dL Hct (39.0-53.0) % Neutrophils # (1.3-7.7) k/uL Sodium (137-145) mmol/L Creatinine (0.66-1.25) mg/dL Glucose (74-99) mg/dL POC Glucose (mg/dL) 150 H (75-99) mg/dL Calcium (8.4-10.2) mg/dL Microbiology - Last 24 Hours (Table) 12/28/18 23:16 Urine Culture - Final Urine,Catheterized 12/28/18 14:50 Gram Stain - Preliminary Other - Other Wound Culture - Preliminary 12/28/18 14:50 Gram Stain - Preliminary Other - Other Wound Culture - Preliminary 12/28/18 14:50 Gram Stain - Preliminary Other - Other Wound Culture - Preliminary 12/28/18 11:15 Blood Culture - Preliminary Blood No Growth after 24 hours
--- NOTE | 2018-12-30 15:58 | P.PN ---
Subjective Progress Note Date: 12/30/18 On 12/30/2018 and seeing this patient for a follow-up. Noted the patient was taken for another surgical explanation yesterday as the patient's CAT scan of the abdomen and pelvis showed some gas within the perineal area and the scrotal area and the suprapubic area. The patient has necrotizing fasciitis of the scrotum and the right inguinal canal. The patient was taken to the operating room and a repeat scrotal exploration and debridement of the necrotic tissue and skin was done. The right inguinal canal was explored and debrided of necrotic tissue. Similarly the left inguinal canal was also explored and debrided. Hemodynamically, the patient is doing well. No pressors. He is producing ad equate amount of urine output. He is on a IV fluid maintenance of 125 mL an hour. He remains slightly tachycardic. He is in a sinus tachycardia. The cultures from the scrotal area has been all pending for now. The patient remained on the same antibiotic coverage includes a combination of clindamycin cefepime and vancomycin. He is requesting oral intake in foods. He is on Levemir insulin 25 units at bedtime in addition to NovoLog status scale coverage. Mentation. There is erythema in the suprapubic area extending to the inguinal area and upper thigh bilaterally. He is on 2 L of oxygen nasal cannula. Pulse ox is around 95%. Objective - Vital Signs Vital signs: Vital Signs Temp 98.5 F 12/30/18 12:00 Pulse 108 H 12/30/18 13:38 Resp 10 L 12/30/18 13:00 BP 151/80 12/30/18 13:00 Pulse Ox 95 12/30/18 13:00 Intake & Output 12/29/18 12/30/18 12/30/18 18:59 06:59 18:59 Intake Total 2950 3425 1867 Output Total 1285 1285 1340 Balance 1665 2140 527 Weight 135 kg 135 kg Intake: IV 2700 2825 1367 Cefepime 2 gm In Sodium 100 100 100 Chloride 0.9% 100 ml @ 200 mls/hr IVPB Q12HR [facility] Rx#:[id number] Clindamycin 600 mg In 100 100 Dextrose 5% in Water 50 ml @ 50 mls/hr IVPB Q8HR [facility] Rx#:[id number] Lactated Ringers 1,000 ml 1500 1125 1000 @ 125 mls/hr IV .Q8H [facility] Rx#:[id number] Vancomycin 2,000 mg In 1000 500 167 Sodium Chloride 0.9% 500 ml 500 ml @ 167 mls/hr IVPB Q8H [facility] Rx#: [id number] Oral 250 600 500 Output: Urine 1285 1265 1340 Estimated Blood Loss 20 Other: Voiding Method Indwelling Catheter Indwelling Catheter Indwelling Catheter - Exam Patient is currently extubated on nasal canula . Calm and comfortable. Head exam was generally normal. There was no scleral icterus or corneal arcus. Mucous membranes were moist. Neck was supple and without jugular venous distension, thyromegaly, or carotid bruits. Carotids were easily palpable bilaterally. There was no adenopathy. Patient has a Mallampati class IV and there is no stridor. No goiter or neck masses. Lungs were clear to auscultation and percussion, and with normal diaphragmatic excursion. No wheezes or rales were noted. Cardiac exam revealed the PMI to be normally situated and sized. The rhythm was regular and no extrasystoles were noted during several minutes of auscultation. The first and second heart sounds were normal and physiologic splitting of the second heart sound was noted. There were no murmurs, rubs, clicks, or gallops. Abdominal exam revealed normal bowel sounds. The abdomen was soft, non-tender, and without masses, organomegaly, or appreciable enlargement of the abdominal aorta. The perianal area is debrided and the appropriate dressing has been applied. There is some erythema extending to the suprapubic area. A Condon cath is also in place. The patient also has 2 incisions in the inguinal canal bilaterally Examination of the extremities revealed easily palpable radial, femoral and pedal pulses. There was no cyanosis, clubbing or edema. My normal skin with the exception of the perianal area is within normal limits. Neurologically the patient is alert and awake 3 without any focal neurological deficits. - Labs CBC & Chem 7: 12/30/18 05:51 12/30/18 05:51 Labs: Abnormal Lab Results - Last 24 Hours (Table) 12/29/18 12/29/18 12/29/18 Range/Units 16:03 21:01 22:13 WBC (3.8-10.6) k/uL RBC (4.30-5.90) m/uL Hgb (13.0-17.5) gm/dL Hct (39.0-53.0) % Neutrophils # (1.3-7.7) k/uL Sodium (137-145) mmol/L Creatinine (0.66-1.25) mg/dL Glucose (74-99) mg/dL POC Glucose (mg/dL) 144 H 176 H 181 H (75-99) mg/dL Calcium (8.4-10.2) mg/dL 12/30/18 12/30/18 12/30/18 Range/Units 00:10 04:29 05:51 WBC 15.6 H (3.8-10.6) k/uL RBC 4.03 L (4.30-5.90) m/uL Hgb 11.4 L (13.0-17.5) gm/dL Hct 36.3 L (39.0-53.0) % Neutrophils # 13.3 H (1.3-7.7) k/uL Sodium (137-145) mmol/L Creatinine (0.66-1.25) mg/dL Glucose (74-99) mg/dL POC Glucose (mg/dL) 175 H 174 H (75-99) mg/dL Calcium (8.4-10.2) mg/dL 12/30/18 12/30/18 12/30/18 Range/Units 05:51 07:12 11:18 WBC (3.8-10.6) k/uL RBC (4.30-5.90) m/uL Hgb (13.0-17.5) gm/dL Hct (39.0-53.0) % Neutrophils # (1.3-7.7) k/uL Sodium 136 L (137-145) mmol/L Creatinine 0.53 L (0.66-1.25) mg/dL Glucose 160 H (74-99) mg/dL POC Glucose (mg/dL) 155 H 150 H (75-99) mg/dL Calcium 8.3 L (8.4-10.2) mg/dL Microbiology - Last 24 Hours (Table) 12/28/18 11:15 Blood Culture - Preliminary Blood No Growth after 48 hours 12/28/18 23:16 Urine Culture - Final Urine,Catheterized 12/28/18 14:50 Gram Stain - Preliminary Other - Other Wound Culture - Preliminary 12/28/18 14:50 Gram Stain - Preliminary Other - Other Wound Culture - Preliminary 12/28/18 14:50 Gram Stain - Preliminary Other - Other Wound Culture - Preliminary Assessment and Plan Plan: 1 scrotal and perineal abscess/necrotizing infection/Saskia's gangrene the patient is post excoriation and drainage and excision of the devitalized tissue. The patient has another surgical extubation with debridement of the necrotic skin of the right inguinal and the left inguinal area on 12/29/2018. Currently, on a combination of antibiotics utilizing cefepime and clindamycin and vancomycin. No hypotension. He is in sinus tachycardia. 2 sinus tachycardia, likely secondary to systemic inflammatory response in the setting of necrotizing infection of the perineum/scrotum. 3 diabetes mellitus type 2, poorly controlled on outpatient basis and blood sugar today is down to 170 4 leukocytosis, secondary to above 5 hypertension 6 obesity with a BMI of 41.8 and possible obstructive sleep apnea PLAN Continue same antibiotic coverage. Monitor the white count. Monitor the cultures and make the appropriate into antibiotic adjustments. Local wound care and packing and dressing change. Insulin for sugar control. Morphine for pain control. Heparin subcu for DVT prophylaxis. She is being considered for a diverticular colostomy for later stage to enhance and facilitate recovery of the necrotizing fasciitis of the scrotum. We'll continue to follow.
[2018-12-30 16:22] LABS: Glucose,Whole Blood 231 mg/dL (75-99)
[2018-12-30 17:17] LABS: Glucose,Whole Blood 186 mg/dL (75-99)
[2018-12-30 20:19] LABS: Glucose,Whole Blood 265 mg/dL (75-99)
--- NOTE | 2018-12-30 20:31 | PN ---
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 The patient is on broad-spectrum IV antibiotics. Cultures are negative so far. Repeat CT scan of the abdomen and pelvis showed diffuse edema and some fluid in the scrotal sac. Multiple consultants, including Infectious Disease, Urology and Surgery, are following the patient closely. Pulmonary is also following the patient closely. Past medical history reviewed. REVIEW OF SYSTEMS: CARDIOVASCULAR SYSTEM: No angina, palpitations. RESPIRATORY SYSTEM: As mentioned earlier. GI: No nausea, vomiting. : As mentioned earlier. NERVOUS SYSTEM: No numbness, weakness. CURRENT MEDICATIONS: Reviewed. They include: 1. Tylenol 1000 mg q.6 p.r.n. 2. [place] 5 mg q.6 p.r.n. 3. DuoNeb q.i.d. and p.r.n. 4. Xanax 0.25 t.i.d. 5. Cefepime 2 grams IV b.i.d. 6. Clindamycin 600 mg IV q.8. 7. Catapres 0.1 q.4 p.r.n. 8. Heparin 5000 units subcutaneously q.8. 9. Apresoline 10 mg q.4 p.r.n. 10.NovoLog. 11.Levemir 35 units subcutaneously at bedtime. 12.Toradol 15 mg IV q.6. 13.Lactated Ringers. 14.Zestril 10 mg p.o. daily. 15.P.r.n. medications. 16.Multivitamins 1 p.o. daily. 17.Narcan. 18.Habitrol 14 daily. 19.Zofran. 20.Protonix 40 mg daily. 21.Restoril 15 mg. 22.Vancomycin 2 grams IV q.8. PHYSICAL EXAMINATION: Patient is alert, oriented x3. Pulse is 112, blood pressure 151/80, respiration 9, temperature normal, pulse ox 94% on room air. HEENT: Conjunctivae normal. Oral mucosa moist. NECK: No jugular venous distention. No carotid bruit. No lymph node enlargement. CARDIOVASCULAR SYSTEM: S1, S2 muffled. No S3. No S4. RESPIRATORY SYSTEM: Breath sounds diminished at the bases. A few scattered rhonchi and crackles. ABDOMEN: Soft, obese. Perineal area shows significant edema; status post incision and drainage. Some erythema was seen also present. LEGS: No edema. No swelling. NERVOUS SYSTEM: No focal deficit. LABS: WBC 15.6, hemoglobin 11.4, sodium 136, glucose 186. Calcium is 8.3. ASSESSMENT: 1. Acute scrotal/perineal abscess and cellulitis with necrotizing infection with Fourier's gangrene, status post scrotal and perineal exploration and excision of devitalized tissue and possible sepsis, present on admission. 2. Diabetes mellitus, type 2, uncontrolled. 3. Increased white count. 4. History of obesity. 5. History of nicotine dependence. 6. History of noncompliance. 7. Anemia; normocytic anemia of chronic disease. RECOMMENDATIONS AND DISCUSSION: I recommend to continue current medications, continue with the monitoring, symptomatic treatment. Continue the IV antibiotics. Monitor closely. The blood sugars are fluctuating at this time. I recommend increasing Lantus to 35 units subcutaneously before meals and at bedtime. Case management team to arrange outpatient followup, especially regarding diabetic control. Overall prognosis is guarded because of multiple complex medical issues. See orders for further details. Further recommendations to follow. MMODL / IJN: [id number] /
[2018-12-30] MEDS ORDERED: INSULIN DETEMIR (LEVEMIR) 100 UNIT/ML SYR SQ SCH (21:00)
--- NOTE | 2018-12-30 21:30 | P.PN ---
Subjective Progress Note Date: 12/30/18 28-year-old male known history Diabetes mellitus type 2 that has been poorly controlled. He relates that he's had some recent medication changes and his blood sugars have not been nearly as well controlled as they were in the past. It is also related that he often will smoke 2 packs of cigarettes a day when he is stressed and working. 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 The patient relates approximately 6 days before coming to hospital he started to feel poorly with some generalized malaise low-grade fever and discomfort to his scrotum. The following days he had increasing scrotal swelling and discomfort. The day of admission he was feeling very poorly the most inferior aspect of the scrotum was extremely tender and become quite swollen and constantly presented. At the time of admission it was evident that there was some necrosis to the scrotum and urgent surgical consult with urology occurred. The patient is or even taken in the operating room and the surgical debridement has occurred to the scrotum. There was some minimal necrotizing infection and debridement has occurred. Patient was transferred to the intensive care unit shortly thereafter was extubated and is now sitting upright and talking. With this, mouth is very dry and looks forward to being able to drink water in the near future. 12/29/2018 the patient continues to feel somewhat poorly. There is evidence of some ongoing necrotic tissue and urology was taken to the operating room later today. 12/30/2018 patient is status post second surgery for there was further necrotic material along the spermatic cord. The patient has multiple drains in place and is feeling better here time he is uncomfortable is with the dressing change. His fever 101.2 has resolved and so 98.5. Leukocytosis is slightly improved cultures are pending. Objective - Vital Signs Vital signs: Vital Signs Temp 98.5 F 12/30/18 12:00 Pulse 112 H 12/30/18 20:45 Resp 9 L 12/30/18 19:00 BP 151/80 12/30/18 19:00 Pulse Ox 97 12/30/18 20:32 Intake & Output 12/30/18 12/30/18 12/31/18 06:59 18:59 06:59 Intake Total 3425 2242 275 Output Total 1285 1690 150 Balance 2140 552 125 Weight 135 kg 135 kg Intake: IV 1335 0322 125 Cefepime 2 gm In Sodium 100 100 Chloride 0.9% 100 ml @ 200 mls/hr IVPB Q12HR [facility] Rx#:[id number] Clindamycin 600 mg In 100 Dextrose 5% in Water 50 ml @ 50 mls/hr IVPB Q8HR [facility] Rx#:[id number] Lactated Ringers 1,000 ml 1125 1375 125 @ 125 mls/hr IV .Q8H [facility] Rx#:[id number] Vancomycin 2,000 mg In 500 167 Sodium Chloride 0.9% 500 ml 500 ml @ 167 mls/hr IVPB Q8H [facility] Rx#: [id number] Oral 600 500 Tube Feeding 150 Output: Urine 1265 1690 150 Estimated Blood Loss 20 Other: Voiding Method Indwelling Catheter Indwelling Catheter - Exam HEENT: Anicteric conjunctiva are pink and moist nasal mucosa grossly intact without significant lesions, there is no thrush. Neck: The neck is supple without significant lymphadenopathy or thyromegaly. Lungs: Good bilateral air entry without significant crackles or wheezing. There is no significant bronchial sounds. There is no egophony or dullness. Heart: Regular rate and rhythm with an audible S1-S2, no S3 no S4. There is no significant murmur click or rub, PMI was nondisplaced. Abdomen: Positive bowel sounds soft and nontender without palpable masses or organomegaly. There was no guarding or rebound. Extremities: The upper extremities have excellent pulses they are symmetric, no significant petechiae or telangiectasia. No splinter hemorrhages were noted. The lower extremities are free from significant edema. The peripheral pulses were 2+ and symmetric. Neuro: Awake alert oriented to person place and time. There are no acute new gross focal sensory motor deficits. skin: The scrotum is evidence of the current dressing, there is still signif icant swelling of the scrotum. The [place] drain in Red rubber catheter noted. There is no fluctuance. Is at most moderate tenderness into the right groin area - Labs CBC & Chem 7: 12/30/18 05:51 12/30/18 05:51 Labs: Abnormal Lab Results - Last 24 Hours (Table) 12/29/18 12/30/18 12/30/18 Range/Units 22:13 00:10 04:29 WBC (3.8-10.6) k/uL RBC (4.30-5.90) m/uL Hgb (13.0-17.5) gm/dL Hct (39.0-53.0) % Neutrophils # (1.3-7.7) k/uL Sodium (137-145) mmol/L Creatinine (0.66-1.25) mg/dL Glucose (74-99) mg/dL POC Glucose (mg/dL) 181 H 175 H 174 H (75-99) mg/dL Calcium (8.4-10.2) mg/dL 12/30/18 12/30/18 12/30/18 Range/Units 05:51 05:51 07:12 WBC 15.6 H (3.8-10.6) k/uL RBC 4.03 L (4.30-5.90) m/uL Hgb 11.4 L (13.0-17.5) gm/dL Hct 36.3 L (39.0-53.0) % Neutrophils # 13.3 H (1.3-7.7) k/uL Sodium 136 L (137-145) mmol/L Creatinine 0.53 L (0.66-1.25) mg/dL Glucose 160 H (74-99) mg/dL POC Glucose (mg/dL) 155 H (75-99) mg/dL Calcium 8.3 L (8.4-10.2) mg/dL 12/30/18 12/30/18 12/30/18 Range/Units 11:18 16:19 17:14 WBC (3.8-10.6) k/uL RBC (4.30-5.90) m/uL Hgb (13.0-17.5) gm/dL Hct (39.0-53.0) % Neutrophils # (1.3-7.7) k/uL Sodium (137-145) mmol/L Creatinine (0.66-1.25) mg/dL Glucose (74-99) mg/dL POC Glucose (mg/dL) 150 H 231 H 186 H (75-99) mg/dL Calcium (8.4-10.2) mg/dL 12/30/18 Range/Units 20:05 WBC (3.8-10.6) k/uL RBC (4.30-5.90) m/uL Hgb (13.0-17.5) gm/dL Hct (39.0-53.0) % Neutrophils # (1.3-7.7) k/uL Sodium (137-145) mmol/L Creatinine (0.66-1.25) mg/dL Glucose (74-99) mg/dL POC Glucose (mg/dL) 265 H (75-99) mg/dL Calcium (8.4-10.2) mg/dL Microbiology - Last 24 Hours (Table) 12/28/18 14:50 Gram Stain - Preliminary Scrotum Tissue Culture - Preliminary Coagulase Negative Staph 12/28/18 14:50 Gram Stain - Final Other - Other Wound Culture - Final 12/28/18 14:50 Gram Stain - Final Other - Other Wound Culture - Final 12/28/18 14:50 Gram Stain - Final Other - Other Wound Culture - Final 12/28/18 11:15 Blood Culture - Preliminary Blood No Growth after 48 hours 12/28/18 23:16 Urine Culture - Final Urine,Catheterized Laboratory Results WBC 15.6 k/uL (3.8-10.6) H 12/30/18 05:51 RBC 4.03 m/uL (4.30-5.90) L 12/30/18 05:51 Hgb 11.4 gm/dL (13.0-17.5) L 12/30/18 05:51 Hct 36.3 % (39.0-53.0) L 12/30/18 05:51 MCV 90.0 fL (80.0-100.0) 12/30/18 05:51 MCH 28.2 pg (25.0-35.0) 12/30/18 05:51 MCHC 31.3 g/dL (31.0-37.0) 12/30/18 05:51 RDW 14.8 % (11.5-15.5) 12/30/18 05:51 Plt Count 278 k/uL (150-450) 12/30/18 05:51 Neutrophils % 85 % 12/30/18 05:51 Lymphocytes % 9 % 12/30/18 05:51 Monocytes % 3 % 12/30/18 05:51 Eosinophils % 1 % 12/30/18 05:51 Basophils % 0 % 12/30/18 05:51 Neutrophils # 13.3 k/uL (1.3-7.7) H 12/30/18 05:51 Lymphocytes # 1.4 k/uL (1.0-4.8) 12/30/18 05:51 Monocytes # 0.4 k/uL (0-1.0) 12/30/18 05:51 Eosinophils # 0.1 k/uL (0-0.7) 12/30/18 05:51 Basophils # 0.0 k/uL (0-0.2) 12/30/18 05:51 Hypochromasia Slight 12/30/18 05:51 VBG pH 7.43 (7.31-7.41) H 12/28/18 11:15 VBG pCO2 40 mmHg (37-51) 12/28/18 11:15 VBG HCO3 26 mmol/L (24-28) 12/28/18 11:15 Sodium 136 mmol/L (137-145) L 12/30/18 05:51 Potassium 3.8 mmol/L (3.5-5.1) 12/30/18 05:51 Chloride 102 mmol/L (98-107) 12/30/18 05:51 Carbon Dioxide 29 mmol/L (22-30) 12/30/18 05:51 Anion Gap 5 mmol/L 12/30/18 05:51 BUN 10 mg/dL (9-20) 12/30/18 05:51 Creatinine 0.53 mg/dL (0.66-1.25) L 12/30/18 05:51 Est GFR (CKD-EPI)AfAm >90 (>60 ml/min/1.73 sqM) 12/30/18 05:51 Est GFR (CKD-EPI)NonAf >90 (>60 ml/min/1.73 sqM) 12/30/18 05:51 Glucose 160 mg/dL (74-99) H 12/30/18 05:51 POC Glucose (mg/dL) 265 mg/dL (75-99) H 12/30/18 20:05 POC Glu [employer] ID Rocio Preston 12/30/18 20:05 Plasma Lactic Acid Renzo 1.3 mmol/L (0.7-2.0) 12/28/18 11:15 Calcium 8.3 mg/dL (8.4-10.2) L 12/30/18 05:51 Total Bilirubin 0.4 mg/dL (0.2-1.3) 12/28/18 11:15 AST 17 U/L (17-59) 12/28/18 11:15 ALT 27 U/L (21-72) 12/28/18 11:15 Alkaline Phosphatase 162 U/L (38-126) H 12/28/18 11:15 Total Protein 6.4 g/dL (6.3-8.2) 12/28/18 11:15 Albumin 3.2 g/dL (3.5-5.0) L 12/28/18 11:15 Vancomycin Trough 12.3 ug/mL 12/30/18 05:51 Microbiology 12/28/18 14:50 Scrotum Gram Stain - Preliminary 12/28/18 14:50 Scrotum Tissue Culture - Preliminary Coagulase Negative Staph 12/28/18 14:50 Other - Other Gram Stain - Final 12/28/18 14:50 Other - Other Wound Culture - Final 12/28/18 14:50 Other - Other Gram Stain - Final 12/28/18 14:50 Other - Other Wound Culture - Final 12/28/18 14:50 Other - Other Gram Stain - Final 12/28/18 14:50 Other - Other Wound Culture - Final 12/28/18 11:15 Blood Blood Culture - Preliminary No Growth after 48 hours 12/28/18 23:16 Urine,Catheterized Urine Culture - Final 12/28/18 14:50 Scrotum Anaerobic Culture - Preliminary 12/28/18 14:50 Scrotum Anaerobic Culture - Preliminary 12/28/18 14:50 Scrotum Anaerobic Culture - Preliminary 12/28/18 14:50 Scrotum Anaerobic Culture - Preliminary Assessment and Plan (1) Saskia gangrene Narrative/Plan: 28-year-old male presents to Hospital with a six-day history of increasing pain and discomfort to the scrotum and eventually noticed that he was ill with fever and chills and constantly presented to the emergency center. There is evidence of necrotic area of the scrotum and was seen by urology urgently taken to the operating room. He is now status post the incision and drainage and debridement of the scrotum. Upon transfer to the ICU he remained intubated he has now been extubated and is awake and alert without acute changes. He is still having excellent pain control in the postoperative time fr dona. Antibiotic therapy is appropriate this point in time with cefepime and clindamycin and vancomycin. Clindamycin to reduce toxin production. The patient forcefully is not in septic shock and hopefully with antibiotics surgery in his resuscitation will have improvement. We discussed with a girlfriend and sister the significant importance of improving his blood glucose control in a smoking cessation will be extremely important in his healing process. Hemoglobin A1c should be updated. Cultures and response to therapy will drive the antibiotic choices at discharge. When possible and will be assessed and will assist with wound care potentially negative pressure therapy can be utilized. 12/29/2018 the patient is resting comfortably in fever has improved. However there remains some necrotic tissue at the base of the prior debridement site of the scrotum. Urology has evaluated with taking back to the operating room later this afternoon or early evening for further debridement. Cultures are in process and remains under broad-spectrum antibiotic therapy at this time. Blood glucose control is improving. The patient's family is present and we discussed the absolute importance of glucose control after his discharge to allow healing and prevent further infections such as this. Case management team discussions occurred, patient many wound VAC after discharge which may be challenging. As would IV antibiotic therapy. 12/30/2018 patient is feeling better this evening. Fever has improved. Pain is better controlled. Only time is having significant discomfort is with dressing change. Polymicrobial infection is noted however with the final culture results. Continue current extensive antibiotic therapy with cefepime, clindamycin, and vancomycin until we have further data Current Visit: Yes Status: Acute Code(s): N49.3 - SASKIA GANGRENE SNOMED Code(s): 274320213 (2) Sepsis Current Visit: Yes Status: Acute Code(s): A41.9 - SEPSIS, UNSPECIFIED ORGANISM SNOMED Code(s): 45556915 (3) Fever Current Visit: No Status: Acute Code(s): R50.9 - FEVER, UNSPECIFIED SNOMED Code(s): 258286641 (4) Uncontrolled type 2 diabetes mellitus with complication Current Visit: Yes Status: Acute Code(s): E11.8 - TYPE 2 DIABETES MELLITUS WITH UNSPECIFIED COMPLICATIONS; E11.65 - TYPE 2 DIABETES MELLITUS WITH HYPERGLYCEMIA SNOMED Code(s): 25547578
--- NOTE | 2018-12-30 21:52 | P.PN ---
Progress Note - Text Progress Note Date: 12/30/18 The patient has been afebrile since last night. His blood pressure has been stable. He remains tachycardic with a heart rate between 100 and 115. He says that he feels better although he continues to have pain with palpation in the region of his lower abdomen, scrotum and groins. He is hungry and wants to begin a diet. He did have a bowel movement yesterday. White blood count is improved at 15,600. BUN/creatinine are 10/0.53. On examination there continues to be erythema in the suprapubic area which extends into the groins and inner thighs and scrotum. This appears to be better than yesterday on the left side but there may be slightly more edema now on the right side. The areas in the right groin that had been debrided yesterday appear clean today. His scrotal incision appears clean although he appears to have more scrotal edema than yesterday. This may in part be related to the groin incisions. No new areas of skin necrosis are noted. Overall the patient is stable to slightly improved compared with yesterday. He will be continued on broad-spectrum antibiotics. If his erythema and edema in the suprapubic area continue a repeat CT scan may be obtained later in the week to ensure that additional areas of debridement are not necessary in the lower abdomen. At least at this time the patient does not appear to require a diverting colostomy.
[2018-12-30] MEDS: KETOROLAC 30 MG/ML 1 ML VIAL IVP PRN (23:46)
[2018-12-30 23:47] LABS: Glucose,Whole Blood 202 mg/dL (75-99)
[2018-12-31] MEDS: HEPARIN SODIUM,PORCINE 5,000 UNIT/ML 1 ML VIAL SQ SCH ×4 (00:03→23:21)
[2018-12-31] MEDS: INSULIN ASPART (NovoLOG) 100 UNIT/ML VIAL SQ SCH ×7 (00:04→23:20)
[2018-12-31] MEDS: MORPHINE SULFATE 4 MG/ML SYRINGE IV PRN ×5 (00:04→23:28)
[2018-12-31 04:18] LABS: Glucose,Whole Blood 158 mg/dL (75-99)
[2018-12-31 04:34] LABS: Hemoglobin A1C 9.5 % (4.0-6.0)
[2018-12-31 05:09] LABS: Basophils % (A) 0 %; Eosinophils # (A) 0.1 k/uL (0-0.7); Eosinophils % (A) 1 %; HCT 33.2 % (39.0-53.0); HGB 10.5 gm/dL (13.0-17.5); Lymphocytes # (A) 1.7 k/uL (1.0-4.8); Lymphocytes % (A) 15 %; MCH 28.1 pg (25.0-35.0); MCHC 31.7 g/dL (31.0-37.0); MCV 88.7 fL (80.0-100.0); Monocytes # (A) 0.3 k/uL (0-1.0); Monocytes % (A) 3 %; Neutrophils # (A) 9.5 k/uL (1.3-7.7); Neutrophils % (A) 80 %; Platelet Count 253 k/uL (150-450); RBC 3.74 m/uL (4.30-5.90); RDW 14.1 % (11.5-15.5)
[2018-12-31 05:23] LABS: Anion Gap 4 mmol/L; Blood Urea Nitrogen 9 mg/dL (9-20); Calcium 8.2 mg/dL (8.4-10.2); Carbon Dioxide 32 mmol/L (22-30); Chloride 100 mmol/L (98-107); Glucose 159 mg/dL (74-99); Magnesium 1.8 mg/dL (1.6-2.3); Phosphorus 4.1 mg/dL (2.5-4.5); Potassium 3.7 mmol/L (3.5-5.1); Sodium 136 mmol/L (137-145)
[2018-12-31] MEDS: KETOROLAC 30 MG/ML 1 ML VIAL IVP PRN ×4 (05:55→23:25)
[2018-12-31 06:03] LABS: Glucose,Whole Blood 153 mg/dL (75-99)
[2018-12-31] MEDS ORDERED: POTASSIUM CHLORIDE ER 20 MEQ TAB.ER PO SCH (07:00)
[2018-12-31] MEDS: IPRATROPIUM-ALBUTEROL 3 ML NEB INHALATION SCH ×4 (07:09→20:04)
[2018-12-31] MEDS: PANTOPRAZOLE 40 MG TABLET PO SCH (07:10)
[2018-12-31] MEDS: VANCOMYCIN 2,000 MG in SODIUM CHLORIDE 0.9% 500 ML 500 ML IVPB SCH ×3 (07:10→23:03)
[2018-12-31] MEDS: LACTATED RINGERS 1,000 ML IV SCH ×2 (07:11→13:17)
[2018-12-31] MEDS: MAGNESIUM SULFATE-D5W PMX 1 GM in DEXTROSE/WATER 1 100ML.BAG IVPB SCH ×2 (07:11→09:13)
--- NOTE | 2018-12-31 07:17 | XR ---
EXAMINATION TYPE: XR chest 1V portable DATE OF EXAM: 12/31/2018 COMPARISON: 12/28/2018 HISTORY: Shortness of breath TECHNIQUE: Single frontal view of the chest is obtained. FINDINGS: There are low lung volumes and exaggeration of the pulmonary vasculature. New right apical linear atelectasis is seen with slight improvement in the left midlung atelectasis. Cardiomediastina l silhouette is upper limits of normal size, exaggerated by low lung volumes. No acute osseous pathol ogy. IMPRESSION: Slight improvement of the left midlung atelectasis and new right apical linear atelectas is with overall hypoventilatory lungs.
[2018-12-31 09:05] LABS: Glucose,Whole Blood 182 mg/dL (75-99)
[2018-12-31] MEDS: LISINOPRIL 10 MG TAB PO SCH (09:12)
[2018-12-31] MEDS: CLINDAMYCIN 600 MG in DEXTROSE 5% IN WATER 50 ML IVPB SCH ×6 (09:15→23:13)
[2018-12-31] MEDS: NICOTINE 14MG/24HR PATCH TRANSDERM SCH (09:35)
[2018-12-31] MEDS: CEFEPIME 2 GM in SODIUM CHLORIDE 0.9% 100 ML IVPB SCH ×2 (11:59→20:10)
--- NOTE | 2018-12-31 12:07 | P.PN ---
Subjective Progress Note Date: 12/31/18 CHIEF COMPLAINT: perineal abscess HISTORY OF PRESENT ILLNESS: 28-year-old male admitted to the hospital with necrotizing infection of scrotum. Patient underwent exploration with drainage and excision of devitalized tissue with urology on 12/28/18. Patient went back to OR 12/29/18 for scrotal exploration with debridement of necrotic skin, right inguinal exploration with debridement of necrotic tissue and left inguinal exploration. Patient reports pain is tolerable. WBC 12.0 PHYSICAL EXAM: VITAL SIGNS: Reviewed. GENERAL: Well-developed in no acute distress. HEENT: No sclera icterus. Extraocular movements grossly intact. Moist buccal mucosa. Head is atraumatic, normocephalic. ABDOMEN: Soft. Nondistended. Nontender. NEUROLOGIC: Alert and oriented. Cranial nerves II through XII grossly intact. SKIN: Midline scrotal incision with packing. Bilateral inguinal incisions with anthony drains. No necrotic tissue visualized. ASSESSMENT: 1. Scrotal/perineal abscess/necrotizing infection PLAN: 1. Continue treatment of abscess per urology. Further debridements per urology service 2. No plans for diverting colostomy at this time. Will continue to follow. Nurse practitioner note has been reviewed by physician. Signing provider agrees with the documented findings, assessment, and plan of care. Objective - Vital Signs Vital signs: Vital Signs Temp 97.5 F L 12/31/18 08:00 Pulse 94 12/31/18 11:13 Resp 18 12/31/18 11:13 BP 125/54 12/31/18 10:00 Pulse Ox 97 12/31/18 11:00 Intake & Output 12/30/18 12/31/18 12/31/18 18:59 06:59 18:59 Intake Total 2242 2300 460 Output Total 1690 1210 230 Balance 552 1090 230 Weight 135 kg 136.5 kg Intake: IV 1742 2150 360 Cefepime 2 gm In Sodium 100 100 Chloride 0.9% 100 ml @ 200 mls/hr IVPB Q12HR [facility] Rx#:[id number] Clindamycin 600 mg In 100 50 50 Dextrose 5% in Water 50 ml @ 50 mls/hr IVPB Q8HR [facility] Rx#:[id number] Lactated Ringers 1,000 ml 1375 1500 310 @ 20 mls/hr IV .Q24H [facility] Rx#:[id number] Vancomycin 2,000 mg In 167 Sodium Chloride 0.9% 500 ml 500 ml @ 167 mls/hr IVPB Q8H [facility] Rx#: [id number] Vancomycin 2,000 mg In 500 Sodium Chloride 0.9% 500 ml 500 ml @ 167 mls/hr IVPB Q8H [facility] Rx#: [id number] Intake, IV Titration 100 Amount Magnesium Sulfate-D5w Pmx 100 1 gm In Dextrose/Water 1 100ml.bag @ 100 mls/hr IVPB Q1H [facility] Rx#: [id number] Oral 500 Tube Feeding 150 Output: Urine 1690 1210 230 Other: Voiding Method Indwelling Catheter Indwelling Catheter - Labs CBC & Chem 7: 12/31/18 04:24 12/31/18 04:24 Labs: Abnormal Lab Results - Last 24 Hours (Table) 12/30/18 12/30/18 12/30/18 Range/Units 16:19 17:14 19:17 WBC (3.8-10.6) k/uL RBC (4.30-5.90) m/uL Hgb (13.0-17.5) gm/dL Hct (39.0-53.0) % Neutrophils # (1.3-7.7) k/uL Sodium (137-145) mmol/L Carbon Dioxide (22-30) mmol/L Creatinine (0.66-1.25) mg/dL Glucose (74-99) mg/dL POC Glucose (mg/dL) 231 H 186 H (75-99) mg/dL Hemoglobin A1c 9.5 H (4.0-6.0) % Calcium (8.4-10.2) mg/dL 12/30/18 12/30/18 12/31/18 Range/Units 20:05 23:44 04:16 WBC (3.8-10.6) k/uL RBC (4.30-5.90) m/uL Hgb (13.0-17.5) gm/dL Hct (39.0-53.0) % Neutrophils # (1.3-7.7) k/uL Sodium (137-145) mmol/L Carbon Dioxide (22-30) mmol/L Creatinine (0.66-1.25) mg/dL Glucose (74-99) mg/dL POC Glucose (mg/dL) 265 H 202 H 158 H (75-99) mg/dL Hemoglobin A1c (4.0-6.0) % Calcium (8.4-10.2) mg/dL 12/31/18 12/31/18 12/31/18 Range/Units 04:24 04:24 05:49 WBC 12.0 H (3.8-10.6) k/uL RBC 3.74 L (4.30-5.90) m/uL Hgb 10.5 L (13.0-17.5) gm/dL Hct 33.2 L (39.0-53.0) % Neutrophils # 9.5 H (1.3-7.7) k/uL Sodium 136 L (137-145) mmol/L Carbon Dioxide 32 H (22-30) mmol/L Creatinine 0.48 L (0.66-1.25) mg/dL Glucose 159 H (74-99) mg/dL POC Glucose (mg/dL) 153 H (75-99) mg/dL Hemoglobin A1c (4.0-6.0) % Calcium 8.2 L (8.4-10.2) mg/dL 12/31/18 Range/Units 09:01 WBC (3.8-10.6) k/uL RBC (4.30-5.90) m/uL Hgb (13.0-17.5) gm/dL Hct (39.0-53.0) % Neutrophils # (1.3-7.7) k/uL Sodium (137-145) mmol/L Carbon Dioxide (22-30) mmol/L Creatinine (0.66-1.25) mg/dL Glucose (74-99) mg/dL POC Glucose (mg/dL) 182 H (75-99) mg/dL Hemoglobin A1c (4.0-6.0) % Calcium (8.4-10.2) mg/dL Microbiology - Last 24 Hours (Table) 12/28/18 14:50 Gram Stain - Preliminary Scrotum Tissue Culture - Preliminary Coagulase Negative Staph 12/28/18 14:50 Gram Stain - Final Other - Other Wound Culture - Final 12/28/18 14:50 Gram Stain - Final Other - Other Wound Culture - Final 12/28/18 14:50 Gram Stain - Final Other - Other Wound Culture - Final 12/28/18 11:15 Blood Culture - Preliminary Blood No Growth after 48 hours
[2018-12-31 12:08] LABS: Glucose,Whole Blood 184 mg/dL (75-99)
[2018-12-31] MEDS: MULTIVITAMINS, THERA 1 EACH TAB PO SCH (12:12)
--- NOTE | 2018-12-31 12:30 | P.PN ---
Progress Note - Text Progress Note Date: 12/31/18 The patient remains afebrile and hemodynamically stable. His tachycardia is less and he is now consistently less than 100 bpm. He is hungry and is tolerating a diet. He continues to have pain to palpation predominantly in the right lower quadrant and groin but this is less than it was yesterday. On examination there are no areas of skin necrosis present. There is less erythema in the groins however there remains some edema in the right groin. No fluctuant areas are noted. The incisions in the scrotum and groins appear clean and there does not appear to be any significant necrotic tissue that requires to be debridement at this time. If the patient remains stable he will probably be transferred to a regular floor later today or tomorrow. He will need to continue wound care on a regular basis.
--- NOTE | 2018-12-31 13:20 | PN ---
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 The patient is on broad spectrum IV antibiotics. Daily dressing has been done. A chest x-ray was done which showed improvement in the atelectasis. Otherwise, the patient has been closely monitored by Surgery, Urology, and Pulmonary Critical Care. PAST MEDICAL HISTORY: Reviewed. REVIEW OF SYSTEMS: CARDIOVASCULAR: No angina. RESPIRATION: As mentioned earlier. GI: As mentioned earlier. : No dysuria. NERVOUS SYSTEM: No focal deficits. CURRENT MEDICATIONS: Reviewed and include: 1. Tylenol 1000 mg q.6 p.r.n. 2. Weimar 5 mg. 3. DuoNeb q.i.d. p.r.n. 4. Xanax 0.5 t.i.d. 5. Cefepime 2 g IV b.i.d. 6. Clindamycin 600 mg IV q.8. 7. Catapres 0.1 q.4 p.r.n. 8. Heparin q.8. 9. Apresoline p.r.n. 10.NovoLog. 12.Lactated ringers. 13.KCL. 14.Multivitamins. 15.Narcan. 16.Habitrol. 17.Zofran. 18.Protonix. 19.Restoril. 20.Vancomycin IV. The culture showed only coagulase-negative Staph. PHYSICAL EXAMINATION: Patient is alert and oriented x3. Pulse 95, blood pressure 130/80, respiration 16, temperature normal, pulse ox 98% on 2 L. HEENT: Conjunctivae normal. NECK: No jugular venous distension. CARDIOVASCULAR: S1, S2, muffled. RESPIRATION: Breath sounds diminished at the bases, a few scattered rhonchi. No crackles. ABDOMEN: Soft, nontender. No mass palpable. LEGS: No edema. No swelling. NERVOUS SYSTEM: Higher functions as mentioned earlier, moves all 4 limbs, no focal deficits. Otherwise, extension of the scrotal area with significant swelling and pain. Tenderness present. Wound is being packed. LABS: WBC is 12, hemoglobin is 10.5, sodium 136. ASSESSMENT: 1. Acute scrotal and perineal abscess, cellulitis with necrotic infection as well as Saskia's gangrene, status post scrotal perineal exploration, excision of the devitalized tissue and possible sepsis present on admission. 2. Diabetes type 2, uncontrolled with hyperglycemia. 3. Increased WBC. 4. History of obesity. 5. History of nicotine dependence. 6. History of noncompliance. 7. Anemia, normocytic anemia of chronic disease. PLAN: Continue current management and continue with IV antibiotics. Continue the rest of medications. The chest x-ray which I reviewed personally showed evidence of some atelectasis also. I would recommend to continue with DuoNeb and otherwise I would also recommend to increase the Lantus to 45 units subcu q.h.s. and continue to monitor. The blood sugar is better controlled at this time but still hemoglobin A1c is elevated as mentioned earlier. Otherwise, overall prognosis overall prognosis guarded because of multiple complex medical issues as mentioned earlier. Further recommendations were discussed with the patient and family and discussed with staff. INDU / JARRETT: [id number] / CARLOS
[2018-12-31 16:44] LABS: Glucose,Whole Blood 232 mg/dL (75-99)
--- NOTE | 2018-12-31 17:16 | P.PN ---
Subjective Progress Note Date: 12/31/18 On 12/29/2007 and seeing this patient for a follow-up. Patient is doing better compared to yesterday. Less tachycardic compared to yesterday. Afebrile. Hemodynamically stable and producing adequate amount of urine output. The groin was reexamined today. The tenderness and erythema at the level of the thighs and the superpubic area remains present although it's less compared to yesterday. He remains on the same antibiotic coverage. He was able to tolerate standing today. He felt quite tender to sit and were able to put him back in bed. He is on Levemir insulin in addition to NovoLog sliding scale coverage. No altered mentation. No respiratory distress. He remains on 2 L of oxygen by nasal cannula. His white cell count is at 12.0. His IV fluids will be cut down. Objective - Vital Signs Vital signs: Vital Signs Temp 98.1 F 12/31/18 16:00 Pulse 96 12/31/18 16:00 Resp 22 12/31/18 16:00 BP 125/65 12/31/18 16:00 Pulse Ox 95 12/31/18 16:00 Intake & Output 12/30/18 12/31/18 12/31/18 18:59 06:59 18:59 Intake Total 2242 2300 1210 Output Total 1690 1210 450 Balance 552 1090 760 Weight 135 kg 136.5 kg Intake: IV 1742 2150 1110 Cefepime 2 gm In Sodium 100 100 100 Chloride 0.9% 100 ml @ 200 mls/hr IVPB Q12HR [facility] Rx#:[id number] Clindamycin 600 mg In 100 50 100 Dextrose 5% in Water 50 ml @ 50 mls/hr IVPB Q8HR [facility] Rx#:[id number] Lactated Ringers 1,000 ml 1375 1500 410 @ 20 mls/hr IV .Q24H [facility] Rx#:[id number] Vancomycin 2,000 mg In 167 Sodium Chloride 0.9% 500 ml 500 ml @ 167 mls/hr IVPB Q8H [facility] Rx#: [id number] Vancomycin 2,000 mg In 500 500 Sodium Chloride 0.9% 500 ml 500 ml @ 167 mls/hr IVPB Q8H [facility] Rx#: [id number] Intake, IV Titration 100 Amount Magnesium Sulfate-D5w Pmx 100 1 gm In Dextrose/Water 1 100ml.bag @ 100 mls/hr IVPB Q1H [facility] Rx#: [id number] Oral 500 Tube Feeding 150 Output: Urine 1690 1210 450 Other: Voiding Method Indwelling Catheter Indwelling Catheter Indwelling Catheter - Exam Patient is currently Calm and comfortable. Head exam was generally normal. There was no scleral icterus or corneal arcus. Mucous membranes were moist. Neck was supple and without jugular venous distension, thyromegaly, or carotid bruits. Carotids were easily palpable bilaterally. There was no adenopathy. Patient has a Mallampati class IV and there is no stridor. No goiter or neck masses. Lungs were clear to auscultation and percussion, and with normal diaphragmatic excursion. No wheezes or rales were noted. Cardiac exam revealed the PMI to be normally situated and sized. The rhythm was regular and no extrasystoles were noted during several minutes of auscultation. The first and second heart sounds were normal and physiologic splitting of the second heart sound was noted. There were no murmurs, rubs, clicks, or gallops. Abdominal exam revealed normal bowel sounds. The abdomen was soft, non-tender, and without masses, organomegaly, or appreciable enlargement of the abdominal aorta. The perianal area is debrided and the appropriate dressing has been applied. There is some erythema extending to the suprapubic area. A Condon cath is also in place. The patient also has 2 incisions in the inguinal canal bilaterally Examination of the extremities revealed easily palpable radial, femoral and pedal pulses. There was no cyanosis, clubbing or edema. My normal skin with the exception of the perianal area is within normal limits. Neurologically the patient is alert and awake 3 without any focal neurological deficits. - Labs CBC & Chem 7: 12/31/18 04:24 12/31/18 04:24 Labs: Abnormal Lab Results - Last 24 Hours (Table) 12/30/18 12/30/18 12/30/18 Range/Units 17:14 19:17 20:05 WBC (3.8-10.6) k/uL RBC (4.30-5.90) m/uL Hgb (13.0-17.5) gm/dL Hct (39.0-53.0) % Neutrophils # (1.3-7.7) k/uL Sodium (137-145) mmol/L Carbon Dioxide (22-30) mmol/L Creatinine (0.66-1.25) mg/dL Glucose (74-99) mg/dL POC Glucose (mg/dL) 186 H 265 H (75-99) mg/dL Hemoglobin A1c 9.5 H (4.0-6.0) % Calcium (8.4-10.2) mg/dL 12/30/18 12/31/18 12/31/18 Range/Units 23:44 04:16 04:24 WBC 12.0 H (3.8-10.6) k/uL RBC 3.74 L (4.30-5.90) m/uL Hgb 10.5 L (13.0-17.5) gm/dL Hct 33.2 L (39.0-53.0) % Neutrophils # 9.5 H (1.3-7.7) k/uL Sodium (137-145) mmol/L Carbon Dioxide (22-30) mmol/L Creatinine (0.66-1.25) mg/dL Glucose (74-99) mg/dL POC Glucose (mg/dL) 202 H 158 H (75-99) mg/dL Hemoglobin A1c (4.0-6.0) % Calcium (8.4-10.2) mg/dL 12/31/18 12/31/18 12/31/18 Range/Units 04:24 05:49 09:01 WBC (3.8-10.6) k/uL RBC (4.30-5.90) m/uL Hgb (13.0-17.5) gm/dL Hct (39.0-53.0) % Neutrophils # (1.3-7.7) k/uL Sodium 136 L (137-145) mmol/L Carbon Dioxide 32 H (22-30) mmol/L Creatinine 0.48 L (0.66-1.25) mg/dL Glucose 159 H (74-99) mg/dL POC Glucose (mg/dL) 153 H 182 H (75-99) mg/dL Hemoglobin A1c (4.0-6.0) % Calcium 8.2 L (8.4-10.2) mg/dL 12/31/18 12/31/18 Range/Units 12:04 16:30 WBC (3.8-10.6) k/uL RBC (4.30-5.90) m/uL Hgb (13.0-17.5) gm/dL Hct (39.0-53.0) % Neutrophils # (1.3-7.7) k/uL Sodium (137-145) mmol/L Carbon Dioxide (22-30) mmol/L Creatinine (0.66-1.25) mg/dL Glucose (74-99) mg/dL POC Glucose (mg/dL) 184 H 232 H (75-99) mg/dL Hemoglobin A1c (4.0-6.0) % Calcium (8.4-10.2) mg/dL Microbiology - Last 24 Hours (Table) 12/28/18 11:15 Blood Culture - Preliminary Blood No Growth after 72 hours 12/28/18 14:50 Gram Stain - Preliminary Scrotum Tissue Culture - Preliminary Coagulase Negative Staph 12/28/18 14:50 Gram Stain - Final Other - Other Wound Culture - Final 12/28/18 14:50 Gram Stain - Final Other - Other Wound Culture - Final 12/28/18 14:50 Gram Stain - Final Other - Other Wound Culture - Final Assessment and Plan Plan: 1 scrotal and perineal abscess/necrotizing infection/Saskia's gangrene the patient is post excoriation and drainage and excision of the devitalized tissue. The patient has another surgical extubation with debridement of the necrotic skin of the right inguinal and the left inguinal area on 12/29/2018. Currently, on a combination of antibiotics utilizing cefepime and clindamycin and vancomycin. No hypotension. The patient is still recovering from his 2 surgeries. No signs of any systemic septicemia. The patient is on broad- spectrum antibiotics and was still awaiting for the final cultures to finalize from his groin. This is a necrotizing polymicrobial infection. 2 sinus tachycardia, likely secondary to systemic inflammatory response in the setting of necrotizing infection of the perineum/scrotum. The patient is less tachycardic on today's evaluation compared to yesterday. 3 diabetes mellitus type 2, poorly controlled on outpatient basis , currently on a combination of Levemir and NovoLog 4 leukocytosis, secondary to above 5 hypertension 6 obesity with a BMI of 41.8 and possible obstructive sleep apnea PLAN Continue same antibiotic coverage. Monitor the white count. Monitor the cultures and make the appropriate into antibiotic adjustments. Local wound care and packing and dressing change. Insulin for sugar control. Morphine for pain control. Heparin subcu for DVT prophylaxis. She is being considered for a diverticular colostomy for later stage to enhance and facilitate recovery of the necrotizing fasciitis of the scrotum. We'll cut down the IV fluids to 20 mL an hour. Encourage oral intake. He was able to do some limited activity and ambulation today. He is going to be transferred to medical surgical floor at a later stage. Based on his weight and his increased need for nursing care, we'll keep him in ICU for 24 hours.
[2018-12-31 19:54] LABS: Glucose,Whole Blood 174 mg/dL (75-99)
[2018-12-31] MEDS: INSULIN DETEMIR (LEVEMIR) 100 UNIT/ML SYR SQ SCH (20:14)
--- NOTE | 2018-12-31 23:08 | P.PN ---
Subjective Progress Note Date: 12/31/18 28-year-old male known history Diabetes mellitus type 2 that has been poorly controlled. He relates that he's had some recent medication changes and his blood sugars have not been nearly as well controlled as they were in the past. It is also related that he often will smoke 2 packs of cigarettes a day when he is stressed and working. 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 The patient relates approximately 6 days before coming to hospital he started to feel poorly with some generalized malaise low-grade fever and discomfort to his scrotum. The following days he had increasing scrotal swelling and discomfort. The day of admission he was feeling very poorly the most inferior aspect of the scrotum was extremely tender and become quite swollen and constantly presented. At the time of admission it was evident that there was some necrosis to the scrotum and urgent surgical consult with urology occurred. The patient is or even taken in the operating room and the surgical debridement has occurred to the scrotum. There was some minimal necrotizing infection and debridement has occurred. Patient was transferred to the intensive care unit shortly thereafter was extubated and is now sitting upright and talking. With this, mouth is very dry and looks forward to being able to drink water in the near future. 12/29/2018 the patient continues to feel somewhat poorly. There is evidence of some ongoing necrotic tissue and urology was taken to the operating room later today. 12/30/2018 patient is status post second surgery for there was further necrotic material along the spermatic cord. The patient has multiple drains in place and is feeling better here time he is uncomfortable is with the dressing change. His fever 101.2 has resolved and so 98.5. Leukocytosis is slightly improved cultures are pending. 12/31/2018 patient is feeling somewhat better. Pain is really better control of does have some headache after he receives his morphine. He is having no fevers. No further surgical interventions were required. Objective - Vital Signs Vital signs: Vital Signs Temp 98.1 F 12/31/18 20:00 Pulse 96 12/31/18 23:00 Resp 16 12/31/18 23:00 BP 144/89 12/31/18 23:00 Pulse Ox 96 12/31/18 23:00 Intake & Output 12/31/18 12/31/18 01/01/19 06:59 18:59 06:59 Intake Total 2300 1250 130 Output Total 1210 550 250 Balance 1090 700 -120 Weight 136.5 kg Intake: IV 2150 1150 130 Cefepime 2 gm In Sodium 100 100 Chloride 0.9% 100 ml @ 200 mls/hr IVPB Q12HR [facility] Rx#:[id number] Clindamycin 600 mg In 50 100 50 Dextrose 5% in Water 50 ml @ 50 mls/hr IVPB Q8HR [facility] Rx#:[id number] Lactated Ringers 1,000 ml 1500 450 80 @ 20 mls/hr IV .Q24H [facility] Rx#:[id number] Vancomycin 2,000 mg In 500 500 Sodium Chloride 0.9% 500 ml 500 ml @ 167 mls/hr IVPB Q8H [facility] Rx#: [id number] Intake, IV Titration 100 Amount Magnesium Sulfate-D5w Pmx 100 1 gm In Dextrose/Water 1 100ml.bag @ 100 mls/hr IVPB Q1H [facility] Rx#: [id number] Tube Feeding 150 Output: Urine 1210 550 250 Other: Voiding Method Indwelling Catheter Indwelling Catheter Indwelling Catheter - Exam HEENT: Anicteric conjunctiva are pink and moist nasal mucosa grossly intact without significant lesions, there is no thrush. Neck: The neck is supple without significant lymphadenopathy or thyromegaly. Lungs: Good bilateral air entry without significant crackles or wheezing. There is no significant bronchial sounds. There is no egophony or dullness. Heart: Regular rate and rhythm with an audible S1-S2, no S3 no S4. There is no significant murmur click or rub, PMI was nondisplaced. Abdomen: Positive bowel sounds soft and nontender without palpable masses or organomegaly. There was no guarding or rebound. Extremities: The upper extremities have excellent pulses they are symmetric, no significant petechiae or telangiectasia. No splinter hemorrhages were noted. The lower extremities are free from significant edema. The peripheral pulses were 2+ and symmetric. Neuro: Awake alert oriented to person place and time. There are no acute new gross focal sensory motor deficits. skin: The scrotum is evidence of the current dressing, there is still significant swelling of the scrotum. The Magdalene drain in Red rubber catheter noted. There is no fluctuance. Is at most moderate tenderness into the right groin area - Labs CBC & Chem 7: 12/31/18 04:24 05/23/19 04:24 Labs: Abnormal Lab Results - Last 24 Hours (Table) 12/30/18 12/30/18 12/31/18 Range/Units 19:17 23:44 04:16 WBC (3.8-10.6) k/uL RBC (4.30-5.90) m/uL Hgb (13.0-17.5) gm/dL Hct (39.0-53.0) % Neutrophils # (1.3-7.7) k/uL Sodium (137-145) mmol/L Carbon Dioxide (22-30) mmol/L Creatinine (0.66-1.25) mg/dL Glucose (74-99) mg/dL POC Glucose (mg/dL) 202 H 158 H (75-99) mg/dL Hemoglobin A1c 9.5 H (4.0-6.0) % Calcium (8.4-10.2) mg/dL 12/31/18 12/31/18 12/31/18 Range/Units 04:24 04:24 05:49 WBC 12.0 H (3.8-10.6) k/uL RBC 3.74 L (4.30-5.90) m/uL Hgb 10.5 L (13.0-17.5) gm/dL Hct 33.2 L (39.0-53.0) % Neutrophils # 9.5 H (1.3-7.7) k/uL Sodium 136 L (137-145) mmol/L Carbon Dioxide 32 H (22-30) mmol/L Creatinine 0.48 L (0.66-1.25) mg/dL Glucose 159 H (74-99) mg/dL POC Glucose (mg/dL) 153 H (75-99) mg/dL Hemoglobin A1c (4.0-6.0) % Calcium 8.2 L (8.4-10.2) mg/dL 12/31/18 12/31/18 12/31/18 Range/Units 09:01 12:04 16:30 WBC (3.8-10.6) k/uL RBC (4.30-5.90) m/uL Hgb (13.0-17.5) gm/dL Hct (39.0-53.0) % Neutrophils # (1.3-7.7) k/uL Sodium (137-145) mmol/L Carbon Dioxide (22-30) mmol/L Creatinine (0.66-1.25) mg/dL Glucose (74-99) mg/dL POC Glucose (mg/dL) 182 H 184 H 232 H (75-99) mg/dL Hemoglobin A1c (4.0-6.0) % Calcium (8.4-10.2) mg/dL 12/31/18 Range/Units 19:51 WBC (3.8-10.6) k/uL RBC (4.30-5.90) m/uL Hgb (13.0-17.5) gm/dL Hct (39.0-53.0) % Neutrophils # (1.3-7.7) k/uL Sodium (137-145) mmol/L Carbon Dioxide (22-30) mmol/L Creatinine (0.66-1.25) mg/dL Glucose (74-99) mg/dL POC Glucose (mg/dL) 174 H (75-99) mg/dL Hemoglobin A1c (4.0-6.0) % Calcium (8.4-10.2) mg/dL Microbiology - Last 24 Hours (Table) 12/28/18 11:15 Blood Culture - Preliminary Blood No Growth after 72 hours 12/28/18 14:50 Gram Stain - Preliminary Scrotum Tissue Culture - Preliminary Coagulase Negative Staph Laboratory Results WBC 12.0 k/uL (3.8-10.6) H 12/31/18 04:24 RBC 3.74 m/uL (4.30-5.90) L 12/31/18 04:24 Hgb 10.5 gm/dL (13.0-17.5) L 12/31/18 04:24 Hct 33.2 % (39.0-53.0) L 12/31/18 04:24 MCV 88.7 fL (80.0-100.0) 12/31/18 04:24 MCH 28.1 pg (25.0-35.0) 12/31/18 04:24 MCHC 31.7 g/dL (31.0-37.0) 12/31/18 04:24 RDW 14.1 % (11.5-15.5) 12/31/18 04:24 Plt Count 253 k/uL (150-450) 12/31/18 04:24 Neutrophils % 80 % 12/31/18 04:24 Lymphocytes % 15 % 12/31/18 04:24 Monocytes % 3 % 12/31/18 04:24 Eosinophils % 1 % 12/31/18 04:24 Basophils % 0 % 12/31/18 04:24 Neutrophils # 9.5 k/uL (1.3-7.7) H 12/31/18 04:24 Lymphocytes # 1.7 k/uL (1.0-4.8) 12/31/18 04:24 Monocytes # 0.3 k/uL (0-1.0) 12/31/18 04:24 Eosinophils # 0.1 k/uL (0-0.7) 12/31/18 04:24 Basophils # 0.0 k/uL (0-0.2) 12/31/18 04:24 Hypochromasia Slight 12/30/18 05:51 VBG pH 7.43 (7.31-7.41) H 12/28/18 11:15 VBG pCO2 40 mmHg (37-51) 12/28/18 11:15 VBG HCO3 26 mmol/L (24-28) 12/28/18 11:15 Sodium 136 mmol/L (137-145) L 12/31/18 04:24 Potassium 3.7 mmol/L (3.5-5.1) 12/31/18 04:24 Chloride 100 mmol/L (98-107) 12/31/18 04:24 Carbon Dioxide 32 mmol/L (22-30) H 12/31/18 04:24 Anion Gap 4 mmol/L 12/31/18 04:24 BUN 9 mg/dL (9-20) 12/31/18 04:24 Creatinine 0.48 mg/dL (0.66-1.25) L 12/31/18 04:24 Est GFR (CKD-EPI)AfAm >90 (>60 ml/min/1.73 sqM) 12/31/18 04:24 Est GFR (CKD-EPI)NonAf >90 (>60 ml/min/1.73 sqM) 12/31/18 04:24 Glucose 159 mg/dL (74-99) H 12/31/18 04:24 POC Glucose (mg/dL) 174 mg/dL (75-99) H 12/31/18 19:51 POC Glu Snowboard Designer ID Rocio Preston 12/31/18 19:[address] Glu mg/dL 226 12/30/18 19:17 Hemoglobin A1c 9.5 % (4.0-6.0) H 12/30/18 19:17 Plasma Lactic Acid Renzo 1.3 mmol/L (0.7-2.0) 12/28/18 11:15 Calcium 8.2 mg/dL (8.4-10.2) L 12/31/18 04:24 Phosphorus 4.1 mg/dL (2.5-4.5) 12/31/18 04:24 Magnesium 1.8 mg/dL (1.6-2.3) 12/31/18 04:24 Total Bilirubin 0.4 mg/dL (0.2-1.3) 12/28/18 11:15 AST 17 U/L (17-59) 12/28/18 11:15 ALT 27 U/L (21-72) 12/28/18 11:15 Alkaline Phosphatase 162 U/L (38-126) H 12/28/18 11:15 Total Protein 6.4 g/dL (6.3-8.2) 12/28/18 11:15 Albumin 3.2 g/dL (3.5-5.0) L 12/28/18 11:15 Vancomycin Trough 12.3 ug/mL 12/30/18 05:51 Microbiology 12/28/18 11:15 Blood Blood Culture - Preliminary No Growth after 72 hours 12/28/18 14:50 Scrotum Gram Stain - Preliminary 12/28/18 14:50 Scrotum Tissue Culture - Preliminary Coagulase Negative Staph 12/28/18 14:50 Other - Other Gram Stain - Final 12/28/18 14:50 Other - Other Wound Culture - Final 12/28/18 14:50 Other - Other Gram Stain - Final 12/28/18 14:50 Other - Other Wound Culture - Final 12/28/18 14:50 Other - Other Gram Stain - Final 12/28/18 14:50 Other - Other Wound Culture - Final 12/28/18 23:16 Urine,Catheterized Urine Culture - Final 12/28/18 14:50 Scrotum Anaerobic Culture - Preliminary 12/28/18 14:50 Scrotum Anaerobic Culture - Preliminary 12/28/18 14:50 Scrotum Anaerobic Culture - Preliminary 12/28/18 14:50 Scrotum Anaerobic Culture - Preliminary Assessment and Plan (1) Saskia gangrene Narrative/Plan: 28-year-old male presents to Hospital with a six-day history of increasing pain and discomfort to the scrotum and eventually noticed that he was ill with fever and chills and constantly presented to the emergency center. There is evidence of necrotic area of the scrotum and was seen by urology urgently taken to the operating room. He is now status post the incision and drainage and debridement of the scrotum. Upon transfer to the ICU he remained intubated he has now been extubated and is awake and alert without acute changes. He is still having excellent pain control in the postoperative time frame. Antibiotic therapy is appropriate this point in time with cefepime and clindamycin and vancomycin. Clindamycin to reduce toxin production. The patient forcefully is not in septic shock and hopefully with antibiotics surgery in his resuscitation will have improvement. We discussed with a girlfriend and sister the significant importance of improving his blood glucose control in a smoking cessation will be extremely important in his healing process. Hemoglobin A1c should be updated. Cultures and response to therapy will drive the antibiotic choices at discharge. When possible and will be assessed and will assist with wound care potentially negative pressure therapy can be utilized. 12/29/2018 the patient is resting comfortably in fever has improved. However there remains some necrotic tissue at the base of the prior debridement site of the scrotum. Urology has evaluated with taking back to the operating room later this afternoon or early evening for further debridement. Cultures are in pr ocess and remains under broad-spectrum antibiotic therapy at this time. Blood glucose control is improving. The patient's family is present and we discussed the absolute importance of glucose control after his discharge to allow healing and prevent further infections such as this. Case management team discussions occurred, patient many wound VAC after discharge which may be challenging. As would IV antibiotic therapy. 12/30/2018 patient is feeling better this evening. Fever has improved. Pain is better controlled. Only time is having significant discomfort is with dressing change. Polymicrobial infection is noted however with the final culture results. Continue current extensive antibiotic therapy with cefepime, clindamycin, and vancomycin until we have further data 12/31/2018 patient does feel better. Having no further fever. Urology does not believe any further surgical interventions are required. Continue current antibiotic therapy until final cultures are available. May be able to streamline this in the near future based on culture results. Current Visit: Yes Status: Acute Code(s): N49.3 - SASKIA GANGRENE SNOMED Code(s): 612358945 (2) Sepsis Current Visit: Yes Status: Acute Code(s): A41.9 - SEPSIS, UNSPECIFIED ORGANISM SNOMED Code(s): 15648955 (3) Fever Current Visit: No Status: Acute Code(s): R50.9 - FEVER, UNSPECIFIED SNOMED Code(s): 444138416 (4) Uncontrolled type 2 diabetes mellitus with complication Current Visit: Yes Status: Acute Code(s): E11.8 - TYPE 2 DIABETES MELLITUS WITH UNSPECIFIED COMPLICATIONS; E11.65 - TYPE 2 DIABETES MELLITUS WITH HYPERGLYCEMIA SNOMED Code(s): 15259659
[2018-12-31 23:10] LABS: Glucose,Whole Blood 173 mg/dL (75-99)
[2019-01-01] MEDS: INSULIN ASPART (NovoLOG) 100 UNIT/ML VIAL SQ SCH ×5 (04:16→22:17)
[2019-01-01 04:27] LABS: Glucose,Whole Blood 123 mg/dL (75-99)
[2019-01-01] MEDS: KETOROLAC 30 MG/ML 1 ML VIAL IVP PRN ×3 (05:33→18:08)
[2019-01-01] MEDS: MORPHINE SULFATE 4 MG/ML SYRINGE IV PRN ×3 (05:34→18:08)
[2019-01-01 05:36] LABS: Basophils % (A) 0 %; Eosinophils # (A) 0.1 k/uL (0-0.7); Eosinophils % (A) 1 %; HCT 31.7 % (39.0-53.0); HGB 9.8 gm/dL (13.0-17.5); Hypochromasia Slight; Lymphocytes # (A) 1.3 k/uL (1.0-4.8); Lymphocytes % (A) 12 %; MCH 27.5 pg (25.0-35.0); MCV 88.9 fL (80.0-100.0); Mean Platelet Volume 6.7; Monocytes # (A) 0.3 k/uL (0-1.0); Monocytes % (A) 2 %; Neutrophils # (A) 8.8 k/uL (1.3-7.7); Neutrophils % (A) 83 %; Platelet Count 264 k/uL (150-450); RBC 3.56 m/uL (4.30-5.90); RDW 14.6 % (11.5-15.5); WBC 10.6 k/uL (3.8-10.6)
[2019-01-01 05:50] LABS: Anion Gap 4 mmol/L; Blood Urea Nitrogen 13 mg/dL (9-20); Calcium 8.5 mg/dL (8.4-10.2); Carbon Dioxide 32 mmol/L (22-30); Chloride 101 mmol/L (98-107); Glucose 116 mg/dL (74-99); Magnesium 1.9 mg/dL (1.6-2.3); Phosphorus 4.6 mg/dL (2.5-4.5); Sodium 137 mmol/L (137-145)
[2019-01-01] MEDS ORDERED: VANCOMYCIN TROUGH DUE 1 EACH MISC MISCELLANE ONE (06:00)
[2019-01-01] MEDS: VANCOMYCIN 2,000 MG in SODIUM CHLORIDE 0.9% 500 ML 500 ML IVPB SCH ×3 (06:31→23:15)
[2019-01-01] MEDS: PANTOPRAZOLE 40 MG TABLET PO SCH (06:32)
[2019-01-01] MEDS: HEPARIN SODIUM,PORCINE 5,000 UNIT/ML 1 ML VIAL SQ SCH ×2 (08:53→15:06)
[2019-01-01] MEDS: LISINOPRIL 10 MG TAB PO SCH (08:54)
[2019-01-01] MEDS: CEFEPIME 2 GM in SODIUM CHLORIDE 0.9% 100 ML IVPB SCH ×2 (08:55→20:20)
[2019-01-01] MEDS: CLINDAMYCIN 600 MG in DEXTROSE 5% IN WATER 50 ML IVPB SCH ×4 (08:57→15:06)
[2019-01-01] MEDS: NICOTINE 14MG/24HR PATCH TRANSDERM SCH (08:57)
[2019-01-01 09:05] LABS: Glucose,Whole Blood 158 mg/dL (75-99)
[2019-01-01] MEDS: IPRATROPIUM-ALBUTEROL 3 ML NEB INHALATION SCH (09:39)
[2019-01-01 13:07] LABS: Glucose,Whole Blood 161 mg/dL (75-99)
[2019-01-01] MEDS: LACTATED RINGERS 1,000 ML IV SCH (13:11)
[2019-01-01] MEDS: MULTIVITAMINS, THERA 1 EACH TAB PO SCH (13:12)
--- NOTE | 2019-01-01 14:09 | P.PN ---
Subjective Progress Note Date: 01/01/19 On 01/01/2019, the patient is doing well. No complaints. Afebrile. Hemodynamically stable. On antibiotics. Erythema and tenderness over the suprapubic area has improved compared to yesterday. The white cell count is at 10.6. Remains on a combination of cefepime, clindamycin and vancomycin. Cultu res from the scrotum is showing staph species and further anaerobic cultures still pending for now. The patient has been on Levemir insulin at 45 units daily at bedtime and NovoLog per sliding scale coverage. Blood pressures under good control. He is on DVT and GI prophylaxis. No other significant events overnight. Objective - Vital Signs Vital signs: Vital Signs Temp 98.7 F 01/01/19 09:00 Pulse 101 H 01/01/19 11:00 Resp 18 01/01/19 11:00 BP 116/60 01/01/19 12:00 Pulse Ox 95 01/01/19 12:00 Intake & Output 12/31/18 01/01/19 01/01/19 18:59 06:59 18:59 Intake Total 1250 890 20 Output Total 550 685 215 Balance 700 205 -195 Weight 137.4 kg Intake: IV 1150 890 20 Cefepime 2 gm In Sodium 100 100 Chloride 0.9% 100 ml @ 200 mls/hr IVPB Q12HR [facility] Rx#:[id number] Clindamycin 600 mg In 100 50 Dextrose 5% in Water 50 ml @ 50 mls/hr IVPB Q8HR [facility] Rx#:[id number] Lactated Ringers 1,000 ml 450 240 20 @ 20 mls/hr IV .Q24H [facility] Rx#:[id number] Vancomycin 2,000 mg In 500 500 Sodium Chloride 0.9% 500 ml 500 ml @ 167 mls/hr IVPB Q8H [facility] Rx#: [id number] Intake, IV Titration 100 Amount Magnesium Sulfate-D5w Pmx 100 1 gm In Dextrose/Water 1 100ml.bag @ 100 mls/hr IVPB Q1H [facility] Rx#: [id number] Output: Urine 550 685 215 Other: Voiding Method Indwelling Catheter Indwelling Catheter Indwelling Catheter - Exam Patient is currently Calm and comfortable. Head exam was generally normal. There was no scleral icterus or corneal arcus. Mucous membranes were moist. Neck was supple and without jugular venous distension, thyromegaly, or carotid bruits. Carotids were easily palpable bilaterally. There was no adenopathy. Patient has a Mallampati class IV and there is no stridor. No goiter or neck masses. Lungs were clear to auscultation and percussion, and with normal diaphragmatic excursion. No wheezes or rales were noted. Cardiac exam revealed the PMI to be normally situated and sized. The rhythm was regular and no extrasystoles were noted during several minutes of auscultation. The first and second heart sounds were normal and physiologic splitting of the s econd heart sound was noted. There were no murmurs, rubs, clicks, or gallops. Abdominal exam revealed normal bowel sounds. The abdomen was soft, non-tender, and without masses, organomegaly, or appreciable enlargement of the abdominal aorta. The perianal area is debrided and the appropriate dressing has been applied. There is some erythema extending to the suprapubic area. A Condon cath is also i n place. The patient also has 2 incisions in the inguinal canal bilaterally Examination of the extremities revealed easily palpable radial, femoral and pedal pulses. There was no cyanosis, clubbing or edema. My normal skin with the exception of the perianal area is within normal limits. Neurologically the patient is alert and awake 3 without any focal neurological deficits. - Labs CBC & Chem 7: 01/01/19 04:31 01/01/19 04:31 Labs: Abnormal Lab Results - Last 24 Hours (Table) 12/31/18 12/31/18 12/31/18 Range/Units 16:30 19:51 23:06 RBC (4.30-5.90) m/uL Hgb (13.0-17.5) gm/dL Hct (39.0-53.0) % Neutrophils # (1.3-7.7) k/uL Carbon Dioxide (22-30) mmol/L Creatinine (0.66-1.25) mg/dL Glucose (74-99) mg/dL POC Glucose (mg/dL) 232 H 174 H 173 H (75-99) mg/dL Phosphorus (2.5-4.5) mg/dL 01/01/19 01/01/19 01/01/19 Range/Units 04:12 04:31 04:31 RBC 3.56 L (4.30-5.90) m/uL Hgb 9.8 L (13.0-17.5) gm/dL Hct 31.7 L (39.0-53.0) % Neutrophils # 8.8 H (1.3-7.7) k/uL Carbon Dioxide 32 H (22-30) mmol/L Creatinine 0.42 L (0.66-1.25) mg/dL Glucose 116 H (74-99) mg/dL POC Glucose (mg/dL) 123 H (75-99) mg/dL Phosphorus 4.6 H (2.5-4.5) mg/dL 01/01/19 01/01/19 Range/Units 08:38 13:04 RBC (4.30-5.90) m/uL Hgb (13.0-17.5) gm/dL Hct (39.0-53.0) % Neutrophils # (1.3-7.7) k/uL Carbon Dioxide (22-30) mmol/L Creatinine (0.66-1.25) mg/dL Glucose (74-99) mg/dL POC Glucose (mg/dL) 158 H 161 H (75-99) mg/dL Phosphorus (2.5-4.5) mg/dL Microbiology - Last 24 Hours (Table) 12/28/18 11:15 Blood Culture - Preliminary Blood No Growth after 96 hours 12/28/18 14:50 Gram Stain - Preliminary Scrotum Tissue Culture - Preliminary Staphylococcus simulans Assessment and Plan Plan: 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 The patient has another surgical extubation with debridement of the necrotic skin of the right inguinal and the left inguinal area on 12/29/2018. Currently, on a combination of antibiotics utilizing cefepime and clindamycin and vancomycin. No hypotension. The patient is still recovering from his 2 surgeries. No signs of any systemic septicemia. The patient is on broad-spectrum antibiotics and was still awaiting for the final cultures to finalize from his groin. This is a necrotizing polymicrobial infection. The aerobic cultures have shown staph and anaerobic cultures still pending for now. The patient remained the same antibiotic coverage. He is hemodynamically stable. 2 sinus tachycardia, likely secondary to systemic inflammatory response in the setting of necrotizing infection of the perineum/scrotum, improved 3 diabetes mellitus type 2, poorly controlled on outpatient basis , currently on a combination of Levemir and NovoLog 4 leukocytosis, secondary to above, improved 5 hypertension 6 obesity with a BMI of 41.8 and possible obstructive sleep apnea PLAN Continue same antibiotic coverage. Awaiting final cultures. Daily dressing change. Mobility and movement. IV fluids have been cut down to KVO. Discontinue the breathing treatments. Transfer this patient to a medical surgical floor.
--- NOTE | 2019-01-01 14:49 | P.PN ---
Progress Note - Text Progress Note Date: 01/01/19 The patient is afebrile and normotensive. He is tolerating a regular diet. He says he has no pain except when his groins or scrotum is palpated. White blood count is improved at 10,000. The erythema in the suprapubic and groin areas is decreased however there is still induration bilaterally which is partly lymphedema.. His groin incisions appear clean. I probed his scrotal incision and there does not appear to be any loculated fluid. No visible necrotic tissue is present. His wounds will be irrigated periodically with half-strength Betadine and repacked.
[2019-01-01 16:28] LABS: Glucose,Whole Blood 165 mg/dL (75-99)
--- NOTE | 2019-01-01 17:01 | P.PN ---
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 He was initially admitted to ICU. He had extensive surgery by urology including scrotal expiration with drainage excision of the devitalized tissue from the scrotal and perineal abscess. He is maintained on 3 IV antibiotics. Infectious disease on board. Patient just came out of the ICU today. On 01/01/2019 Patient says that the pain and swelling is doing much better but is still has swelling He does not complain of any more fevers No chest pain or racing heart Objective - Vital Signs Vital signs: Vital Signs Temp 98.4 F 01/01/19 15:25 Pulse 99 01/01/19 16:13 Resp 20 01/01/19 14:00 BP 148/91 01/01/19 15:25 Pulse Ox 93 L 01/01/19 15:25 Intake & Output 12/31/18 01/01/19 01/01/19 18:59 06:59 18:59 Intake Total 3904 817 6006 Output Total 550 685 515 Balance 700 205 865 Weight 137.4 kg Intake: IV 5235 067 2338 Cefepime 2 gm In Sodium 100 100 100 Chloride 0.9% 100 ml @ 200 mls/hr IVPB Q12HR [facility] Rx#:[id number] Clindamycin 600 mg In 100 50 100 Dextrose 5% in Water 50 ml @ 50 mls/hr IVPB Q8HR [facility] Rx#:[id number] Lactated Ringers 1,000 ml 450 240 180 @ 20 mls/hr IV .Q24H [facility] Rx#:[id number] Vancomycin 2,000 mg In 239 401 7249 Sodium Chloride 0.9% 500 ml 500 ml @ 167 mls/hr IVPB Q8H [facility] Rx#: [id number] Intake, IV Titration 100 Amount Magnesium Sulfate-D5w Pmx 100 1 gm In Dextrose/Water 1 100ml.bag @ 100 mls/hr IVPB Q1H [facility] Rx#: [id number] Output: Urine 550 685 515 Other: Voiding Method Indwelling Catheter Indwelling Catheter Indwelling Catheter - Exam On exam, alert and oriented x3. HEENT: Conjunctivae normal. eyes normal. NECK: No JVD. No thyroid enlargement. No LNs CARDIOVASCULAR: S1, S2 muffled. No murmur RESPIRATION: Breath sounds diminished in the bases. No rhonchi or crackles. No bronchial breathing. ABDOMEN: Soft, nontender . No guarding. no masses palpable. No ascites, No hepatosplenomegaly.Bowel sounds heard. patient is having dressing applied at the bilateral inguinal area status post surgery and the scrotal area. The scrotum is swollen as is the care Area. He has erythema extending up to the suprapubic area LEGS: No edema. no swelling NERVOUS SYSTEM: Cranial N 2-12 grossly normal. Moves all 4 limbs. No focal deficits. No sensory deficit. No signs of cerebellar dysfucntion. Skin: no ulcer no rash - Labs CBC & Chem 7: 01/01/19 04:31 01/01/19 04:31 Labs: Abnormal Lab Results - Last 24 Hours (Table) 12/31/18 12/31/18 01/01/19 Range/Units 19:51 23:06 04:12 RBC (4.30-5.90) m/uL Hgb (13.0-17.5) gm/dL Hct (39.0-53.0) % Neutrophils # (1.3-7.7) k/uL Carbon Dioxide (22-30) mmol/L Creatinine (0.66-1.25) mg/dL Glucose (74-99) mg/dL POC Glucose (mg/dL) 174 H 173 H 123 H (75-99) mg/dL Phosphorus (2.5-4.5) mg/dL 01/01/19 01/01/19 01/01/19 Range/Units 04:31 04:31 08:38 RBC 3.56 L (4.30-5.90) m/uL Hgb 9.8 L (13.0-17.5) gm/dL Hct 31.7 L (39.0-53.0) % Neutrophils # 8.8 H (1.3-7.7) k/uL Carbon Dioxide 32 H (22-30) mmol/L Creatinine 0.42 L (0.66-1.25) mg/dL Glucose 116 H (74-99) mg/dL POC Glucose (mg/dL) 158 H (75-99) mg/dL Phosphorus 4.6 H (2.5-4.5) mg/dL 01/01/19 01/01/19 Range/Units 13:04 16:26 RBC (4.30-5.90) m/uL Hgb (13.0-17.5) gm/dL Hct (39.0-53.0) % Neutrophils # (1.3-7.7) k/uL Carbon Dioxide (22-30) mmol/L Creatinine (0.66-1.25) mg/dL Glucose (74-99) mg/dL POC Glucose (mg/dL) 161 H 165 H (75-99) mg/dL Phosphorus (2.5-4.5) mg/dL Microbiology - Last 24 Hours (Table) 12/28/18 11:15 Blood Culture - Preliminary Blood No Growth after 96 hours 12/28/18 14:50 Gram Stain - Preliminary Scrotum Tissue Culture - Preliminary Staphylococcus simulans Assessment and Plan Assessment: - Saskia,s gangrene with scrotal and perineal abscess and necrotizing infection status post drainage and excision of the devitalized tissue - sinus tachycardia improved - Diabetes mellitus - Leukocytosis - Hypertension - obesity Plan - We'll continue antibiotics as per infectious disease - continue breathing treatments - Continue insulin - Continue rest of the medical care - We'll continue to monitor
[2019-01-01 20:36] LABS: Glucose,Whole Blood 186 mg/dL (75-99)
[2019-01-01] MEDS: INSULIN DETEMIR (LEVEMIR) 100 UNIT/ML SYR SQ SCH (22:17)
[2019-01-02] MEDS: KETOROLAC 30 MG/ML 1 ML VIAL IVP PRN ×2 (00:27→06:06)
[2019-01-02] MEDS: HEPARIN SODIUM,PORCINE 5,000 UNIT/ML 1 ML VIAL SQ SCH ×3 (00:29→17:33)
[2019-01-02] MEDS: MORPHINE SULFATE 4 MG/ML SYRINGE IV PRN ×3 (00:42→17:16)
[2019-01-02] MEDS: CLINDAMYCIN 600 MG in DEXTROSE 5% IN WATER 50 ML IVPB SCH ×6 (01:23→18:06)
[2019-01-02 06:59] LABS: Basophils % (A) 0 %; Eosinophils # (A) 0.2 k/uL (0-0.7); Eosinophils % (A) 2 %; HCT 35.3 % (39.0-53.0); HGB 11.3 gm/dL (13.0-17.5); Lymphocytes # (A) 1.6 k/uL (1.0-4.8); Lymphocytes % (A) 12 %; MCH 27.7 pg (25.0-35.0); MCHC 32.1 g/dL (31.0-37.0); MCV 86.5 fL (80.0-100.0); Mean Platelet Volume 6.9; Monocytes # (A) 0.2 k/uL (0-1.0); Monocytes % (A) 2 %; Neutrophils # (A) 10.4 k/uL (1.3-7.7); Neutrophils % (A) 83 %; Platelet Count 255 k/uL (150-450); RBC 4.08 m/uL (4.30-5.90); RDW 14.7 % (11.5-15.5); WBC 12.6 k/uL (3.8-10.6)
[2019-01-02 07:04] LABS: Glucose,Whole Blood 96 mg/dL (75-99)
[2019-01-02] MEDS: INSULIN ASPART (NovoLOG) 100 UNIT/ML VIAL SQ SCH ×4 (07:12→21:59)
[2019-01-02 07:18] LABS: Anion Gap 5 mmol/L; Blood Urea Nitrogen 13 mg/dL (9-20); Calcium 8.1 mg/dL (8.4-10.2); Carbon Dioxide 32 mmol/L (22-30); Chloride 102 mmol/L (98-107); Glucose 95 mg/dL (74-99); Potassium 3.7 mmol/L (3.5-5.1); Sodium 139 mmol/L (137-145)
[2019-01-02] MEDS: VANCOMYCIN 2,000 MG in SODIUM CHLORIDE 0.9% 500 ML 500 ML IVPB SCH ×3 (07:26→22:48)
[2019-01-02] MEDS: CEFEPIME 2 GM in SODIUM CHLORIDE 0.9% 100 ML IVPB SCH ×2 (07:33→20:55)
[2019-01-02] MEDS: NICOTINE 14MG/24HR PATCH TRANSDERM SCH ×2 (07:34→07:36)
[2019-01-02] MEDS: PANTOPRAZOLE 40 MG TABLET PO SCH (07:34)
[2019-01-02] MEDS: LISINOPRIL 10 MG TAB PO SCH (07:35)
--- NOTE | 2019-01-02 10:09 | P.PN ---
Subjective Progress Note Date: 01/02/19 Principal diagnosis: Saskia's gangrene The patient states that he is feeling better. He reports pain only when his wounds are touched. Objective - Vital Signs Vital signs: Vital Signs Temp 98.5 F 01/02/19 07:00 Pulse 89 01/02/19 07:00 Resp 17 01/02/19 07:00 BP 148/92 01/02/19 07:00 Pulse Ox 86 L 01/01/19 20:39 Intake & Output 01/01/19 01/02/19 01/02/19 18:59 06:59 18:59 Intake Total 1380 2105 240 Output Total 515 1600 Balance 865 505 240 Intake: IV 1380 650 Cefepime 2 gm In Sodium 100 100 Chloride 0.9% 100 ml @ 200 mls/hr IVPB Q12HR [facility] Rx#:[id number] Clindamycin 600 mg In 100 50 Dextrose 5% in Water 50 ml @ 50 mls/hr IVPB Q8HR [facility] Rx#:[id number] Lactated Ringers 1,000 ml 180 @ 20 mls/hr IV .Q24H [facility] Rx#:[id number] Vancomycin 2,000 mg In 1000 500 Sodium Chloride 0.9% 500 ml 500 ml @ 167 mls/hr IVPB Q8H [facility] Rx#: [id number] Intake, IV Titration 650 Amount Cefepime 2 gm In Sodium 100 Chloride 0.9% 100 ml @ 200 mls/hr IVPB Q12HR [facility] Rx#:[id number] Clindamycin 600 mg In 50 Dextrose 5% in Water 50 ml @ 50 mls/hr IVPB Q8HR [facility] Rx#:[id number] Vancomycin 2,000 mg In 500 Sodium Chloride 0.9% 500 ml 500 ml @ 167 mls/hr IVPB Q8H [facility] Rx#: [id number] Oral 805 240 Output: Urine 515 1600 Other: Voiding Method Indwelling Catheter Indwelling Catheter Indwelling Catheter - Constitutional General appearance: Present: cooperative, no acute distress - Genitourinary Genitourinary Comment(s): The wounds are clean. No purulence is noted. Some erythema is noted over the right inguinal canal, superolateral to the incision. There is no fluctuance or crepitus. - Labs CBC & Chem 7: 01/02/19 06:43 01/02/19 06:43 Labs: Abnormal Lab Results - Last 24 Hours (Table) 01/01/19 01/01/19 01/01/19 Range/Units 13:04 16:26 20:25 WBC (3.8-10.6) k/uL RBC (4.30-5.90) m/uL Hgb (13.0-17.5) gm/dL Hct (39.0-53.0) % Neutrophils # (1.3-7.7) k/uL Carbon Dioxide (22-30) mmol/L Creatinine (0.66-1.25) mg/dL POC Glucose (mg/dL) 161 H 165 H 186 H (75-99) mg/dL Calcium (8.4-10.2) mg/dL 01/02/19 01/02/19 Range/Units 06:43 06:43 WBC 12.6 H (3.8-10.6) k/uL RBC 4.08 L (4.30-5.90) m/uL Hgb 11.3 L (13.0-17.5) gm/dL Hct 35.3 L (39.0-53.0) % Neutrophils # 10.4 H (1.3-7.7) k/uL Carbon Dioxide 32 H (22-30) mmol/L Creatinine 0.44 L (0.66-1.25) mg/dL POC Glucose (mg/dL) (75-99) mg/dL Calcium 8.1 L (8.4-10.2) mg/dL Microbiology - Last 24 Hours (Table) 12/28/18 14:50 Anaerobic Culture - Final Scrotum Anaerobic Gram Positive Cocci Anaerobic Gm Negative Bacilli#2 12/28/18 14:50 Anaerobic Culture - Final Scrotum Anaerobic Gm Negative Bacilli 12/28/18 14:50 Anaerobic Culture - Preliminary Scrotum Anaerobic Gram Positive Cocci Anaerobic Gm Negative Bacilli 12/28/18 14:50 Anaerobic Culture - Preliminary Scrotum Anaerobic Gram Positive Cocci Anaerobic Gm Negative Bacilli 12/28/18 11:15 Blood Culture - Preliminary Blood No Growth after 96 hours Assessment and Plan (1) Saskia gangrene Current Visit: Yes Status: Acute Code(s): N49.3 - SASKIA GANGRENE SNOMED Code(s): 180349113 Plan: Continue local wound care and broad-spectrum antibiotics, pending the final culture results.
[2019-01-02] MEDS ORDERED: BISACODYL 5 MG TABLET.DR PO PRN (11:22)
--- NOTE | 2019-01-02 11:26 | P.PN ---
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 He was initially admitted to ICU. He had extensive surgery by urology including scrotal expiration with drainage excision of the devitalized tissue from the scrotal and perineal abscess. He is maintained on 3 IV antibiotics. Infectious disease on board. Patient just came out of the ICU today. On 01/01/2019 Patient says that the pain and swelling is doing much better but is still has swelling He does not complain of any more fevers No chest pain or racing heart 01/02/2019 Patient says that he's been swelling is the same or a little better he says that he is constipated and hasn't had a bowel movement. He is passing gases and has no belly pain Objective - Vital Signs Vital signs: Vital Signs Temp 98.5 F 01/02/19 07:00 Pulse 89 01/02/19 07:00 Resp 17 01/02/19 07:00 BP 148/92 01/02/19 07:00 Pulse Ox 86 L 01/01/19 20:39 Intake & Output 01/01/19 01/02/19 01/02/19 18:59 06:59 18:59 Intake Total 1380 2105 240 Output Total 515 1600 Balance 865 505 240 Intake: IV 1380 650 Cefepime 2 gm In Sodium 100 100 Chloride 0.9% 100 ml @ 200 mls/hr IVPB Q12HR [facility] Rx#:[id number] Clindamycin 600 mg In 100 50 Dextrose 5% in Water 50 ml @ 50 mls/hr IVPB Q8HR [facility] Rx#:[id number] Lactated Ringers 1,000 ml 180 @ 20 mls/hr IV .Q24H [facility] Rx#:[id number] Vancomycin 2,000 mg In 1000 500 Sodium Chloride 0.9% 500 ml 500 ml @ 167 mls/hr IVPB Q8H [facility] Rx#: [id number] Intake, IV Titration 650 Amount Cefepime 2 gm In Sodium 100 Chloride 0.9% 100 ml @ 200 mls/hr IVPB Q12HR [facility] Rx#:[id number] Clindamycin 600 mg In 50 Dextrose 5% in Water 50 ml @ 50 mls/hr IVPB Q8HR [facility] Rx#:[id number] Vancomycin 2,000 mg In 500 Sodium Chloride 0.9% 500 ml 500 ml @ 167 mls/hr IVPB Q8H [facility] Rx#: [id number] Oral 805 240 Output: Urine 515 1600 Other: Voiding Method Indwelling Catheter Indwelling Catheter Indwelling Catheter - Exam On exam, alert and oriented x3. HEENT: Conjunctivae normal. eyes normal. NECK: No JVD. No thyroid enlargement. No LNs CARDIOVASCULAR: S1, S2 muffled. No murmur RESPIRATION: Breath sounds diminished in the bases. No rhonchi or crackles. No bronchial breathing. ABDOMEN: Soft, nontender . No guarding. no masses palpable. No ascites, No hepatosplenomegaly.Bowel sounds heard. patient is having dressing applied at the bilateral inguinal area status post s urgery and the scrotal area. The scrotum is swollen as is the care Area. He has erythema extending up to the suprapubic area LEGS: No edema. no swelling NERVOUS SYSTEM: Cranial N 2-12 grossly normal. Moves all 4 limbs. No focal deficits. No sensory deficit. No signs of cerebellar dysfucntion. Skin: no ulcer no rash - Labs CBC & Chem 7: 01/02/19 06:43 01/02/19 06:43 Labs: Abnormal Lab Results - Last 24 Hours (Table) 01/01/19 01/01/19 01/01/19 Range/Units 13:04 16:26 20:25 WBC (3.8-10.6) k/uL RBC (4.30-5.90) m/uL Hgb (13.0-17.5) gm/dL Hct (39.0-53.0) % Neutrophils # (1.3-7.7) k/uL Carbon Dioxide (22-30) mmol/L Creatinine (0.66-1.25) mg/dL POC Glucose (mg/dL) 161 H 165 H 186 H (75-99) mg/dL Calcium (8.4-10.2) mg/dL 01/02/19 01/02/19 Range/Units 06:43 06:43 WBC 12.6 H (3.8-10.6) k/uL RBC 4.08 L (4.30-5.90) m/uL Hgb 11.3 L (13.0-17.5) gm/dL Hct 35.3 L (39.0-53.0) % Neutrophils # 10.4 H (1.3-7.7) k/uL Carbon Dioxide 32 H (22-30) mmol/L Creatinine 0.44 L (0.66-1.25) mg/dL POC Glucose (mg/dL) (75-99) mg/dL Calcium 8.1 L (8.4-10.2) mg/dL Microbiology - Last 24 Hours (Table) 12/28/18 14:50 Anaerobic Culture - Final Scrotum Anaerobic Gram Positive Cocci Anaerobic Gm Negative Bacilli#2 12/28/18 14:50 Anaerobic Culture - Final Scrotum Anaerobic Gm Negative Bacilli 12/28/18 14:50 Anaerobic Culture - Preliminary Scrotum Anaerobic Gram Positive Cocci Anaerobic Gm Negative Bacilli 12/28/18 14:50 Anaerobic Culture - Preliminary Scrotum Anaerobic Gram Positive Cocci Anaerobic Gm Negative Bacilli 12/28/18 11:15 Blood Culture - Preliminary Blood No Growth after 96 hours Assessment and Plan Assessment: - Saskia,s gangrene with scrotal and perineal abscess and necrotizing infection status post drainage and excision of the devitalized tissue - sinus tachycardia improved - Diabetes mellitus - Leukocytosis - Hypertension - obesity Plan 01/01/2019 - We'll continue antibiotics as per infectious disease - continue breathing treatments - Continue insulin. - Continue rest of the medical care - We'll continue to monitor 01/02/2019 Continue antibiotics Pending final culture identification blood sugars better controlled today We will start him on Dulcolax when necessary for constipation Continue rest of the medical care We'll follow up with the patient Time with Patient: Less than 30
[2019-01-02 11:30] LABS: Glucose,Whole Blood 146 mg/dL (75-99)
[2019-01-02] MEDS: LACTATED RINGERS 1,000 ML IV SCH (11:38)
[2019-01-02] MEDS: MULTIVITAMINS, THERA 1 EACH TAB PO SCH (11:39)
[2019-01-02] MEDS: HYDROcodone/APAP 5-325MG 1 EACH TAB PO PRN (14:05)
--- NOTE | 2019-01-02 15:03 | P.PN ---
Subjective Progress Note Date: 01/02/19 On 01/02/2019, the patient on the medical floor. He remains on same antibiotic coverage. He is quite comfortable for now. No signs of any septicemia. Urology is following up his scrotal and inguinal wounds. White cell count is at 4.6. Has no complaints. No respiratory distress. Complete final culture results have not been resulted yet. There is positive gram-negative bacillus and gram-positive coccus Objective - Vital Signs Vital signs: Vital Signs Temp 98.2 F 01/02/19 15:00 Pulse 100 01/02/19 15:00 Resp 18 01/02/19 15:00 BP 143/84 01/02/19 15:00 Pulse Ox 96 01/02/19 15:00 Intake & Output 01/01/19 01/02/19 01/02/19 18:59 06:59 18:59 Intake Total 1380 2105 480 Output Total 515 1600 Balance 865 505 480 Intake: IV 1380 650 Cefepime 2 gm In Sodium 100 100 Chloride 0.9% 100 ml @ 200 mls/hr IVPB Q12HR [facility] Rx#:[id number] Clindamycin 600 mg In 100 50 Dextrose 5% in Water 50 ml @ 50 mls/hr IVPB Q8HR [facility] Rx#:[id number] Lactated Ringers 1,000 ml 180 @ 20 mls/hr IV .Q24H [facility] Rx#:[id number] Vancomycin 2,000 mg In 1000 500 Sodium Chloride 0.9% 500 ml 500 ml @ 167 mls/hr IVPB Q8H [facility] Rx#: [id number] Intake, IV Titration 650 Amount Cefepime 2 gm In Sodium 100 Chloride 0.9% 100 ml @ 200 mls/hr IVPB Q12HR [facility] Rx#:[id number] Clindamycin 600 mg In 50 Dextrose 5% in Water 50 ml @ 50 mls/hr IVPB Q8HR [facility] Rx#:[id number] Vancomycin 2,000 mg In 500 Sodium Chloride 0.9% 500 ml 500 ml @ 167 mls/hr IVPB Q8H [facility] Rx#: [id number] Oral 805 480 Output: Urine 515 1600 Other: Voiding Method Indwelling Catheter Indwelling Catheter Indwelling Catheter - Exam Patient is currently Calm and comfortable. Head exam was generally normal. There was no scleral icterus or corneal arcus. Mucous membranes were moist. Neck was supple and without jugular venous distension, thyromegaly, or carotid bruits. Carotids were easily palpable bilaterally. There was no adenopathy. Patient has a Mallampati class IV and there is no stridor. No goiter or neck masses. Lungs were clear to auscultation and percussion, and with normal diaphragmatic excursion. No wheezes or rales were noted. Cardiac exam revealed the PMI to be normally situated and sized. The rhythm was regular and no extrasystoles were noted during several minutes of auscultation. The first and second heart sounds were normal and physiologic splitting of the second heart sound was noted. There were no murmurs, rubs, clicks, or gallops. Abdominal exam revealed normal bowel sounds. The abdomen was soft, non-tender, and without masses, organomegaly, or appreciable enlargement of the abdominal aorta. The perianal area is debrided and the appropriate dressing has been applied. There is some erythema extending to the suprapubic area. A Condon cath is also in place. The patient also has 2 incisions in the inguinal canal bilaterally Examination of the extremities revealed easily palpable radial, femoral and pedal pulses. There was no cyanosis, clubbing or edema. My normal skin with the exception of the perianal area is within normal limits. Neurologically the patient is alert and awake 3 without any focal neurological deficits. - Labs CBC & Chem 7: 01/02/19 06:43 01/02/19 06:43 Labs: Abnormal Lab Results - Last 24 Hours (Table) 01/01/19 01/01/19 01/02/19 Range/Units 16:26 20:25 06:43 WBC 12.6 H (3.8-10.6) k/uL RBC 4.08 L (4.30-5.90) m/uL Hgb 11.3 L (13.0-17.5) gm/dL Hct 35.3 L (39.0-53.0) % Neutrophils # 10.4 H (1.3-7.7) k/uL Carbon Dioxide (22-30) mmol/L Creatinine (0.66-1.25) mg/dL POC Glucose (mg/dL) 165 H 186 H (75-99) mg/dL Calcium (8.4-10.2) mg/dL 01/02/19 01/02/19 Range/Units 06:43 11:28 WBC (3.8-10.6) k/uL RBC (4.30-5.90) m/uL Hgb (13.0-17.5) gm/dL Hct (39.0-53.0) % Neutrophils # (1.3-7.7) k/uL Carbon Dioxide 32 H (22-30) mmol/L Creatinine 0.44 L (0.66-1.25) mg/dL POC Glucose (mg/dL) 146 H (75-99) mg/dL Calcium 8.1 L (8.4-10.2) mg/dL Microbiology - Last 24 Hours (Table) 12/28/18 11:15 Blood Culture - Preliminary Blood No Growth after 120 hours 12/28/18 14:50 Anaerobic Culture - Final Scrotum Anaerobic Gram Positive Cocci Anaerobic Gm Negative Bacilli#2 12/28/18 14:50 Anaerobic Culture - Final Scrotum Anaerobic Gm Negative Bacilli 12/28/18 14:50 Anaerobic Culture - Preliminary Scrotum Anaerobic Gram Positive Cocci Anaerobic Gm Negative Bacilli 12/28/18 14:50 Anaerobic Culture - Preliminary Scrotum Anaerobic Gram Positive Cocci Anaerobic Gm Negative Bacilli Assessment and Plan Plan: 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 The patient has another surgical extubation with debridement of the necrotic skin of the right inguinal and the left inguinal area on 12/29/2018. Currently, on a combination of antibiotics utilizing cefepime and clindamycin and vancomycin. No hypotension. The patient is still recovering from his 2 surgeries. Final cultures are still pending. There is gram-positive cocci and gram-negative bacilli in addition to staph. ID is on the case. Urology on the case. Hemodynamically stable. 2 sinus tachycardia, likely secondary to systemic inflammatory response in the setting of necrotizing infection of the perineum/scrotum, improved 3 diabetes mellitus type 2, poorly controlled on outpatient basis , currently on a combination of Levemir and NovoLog 4 leukocytosis, secondary to above, improved 5 hypertension 6 obesity with a BMI of 41.8 and possible obstructive sleep apnea PLAN Continue same antibiotic coverage. Awaiting final cultures. Daily dressing change. Mobility and movement. Patient is on the medical floor. No pulmonate orthopedic admissions. I'm going to sign off the case.
[2019-01-02 16:29] LABS: Glucose,Whole Blood 188 mg/dL (75-99)
[2019-01-02 21:14] LABS: Glucose,Whole Blood 185 mg/dL (75-99)
[2019-01-02] MEDS: INSULIN DETEMIR (LEVEMIR) 100 UNIT/ML SYR SQ SCH (21:59)
[2019-01-03] MEDS: MORPHINE SULFATE 4 MG/ML SYRINGE IV PRN ×5 (00:04→23:43)
[2019-01-03] MEDS: HEPARIN SODIUM,PORCINE 5,000 UNIT/ML 1 ML VIAL SQ SCH ×3 (00:10→16:27)
[2019-01-03] MEDS: CLINDAMYCIN 600 MG in DEXTROSE 5% IN WATER 50 ML IVPB SCH ×6 (02:09→16:27)
[2019-01-03 06:46] LABS: Basophils % (A) 0 %; Eosinophils # (A) 0.2 k/uL (0-0.7); Eosinophils % (A) 1 %; HCT 34.3 % (39.0-53.0); HGB 10.8 gm/dL (13.0-17.5); Lymphocytes # (A) 1.4 k/uL (1.0-4.8); Lymphocytes % (A) 11 %; MCH 27.3 pg (25.0-35.0); MCHC 31.6 g/dL (31.0-37.0); MCV 86.6 fL (80.0-100.0); Mean Platelet Volume 6.9; Monocytes # (A) 0.4 k/uL (0-1.0); Monocytes % (A) 3 %; Neutrophils # (A) 10.4 k/uL (1.3-7.7); Neutrophils % (A) 83 %; Platelet Count 263 k/uL (150-450); RBC 3.96 m/uL (4.30-5.90); RDW 14.4 % (11.5-15.5); WBC 12.5 k/uL (3.8-10.6)
[2019-01-03 06:54] LABS: Anion Gap 2 mmol/L; Blood Urea Nitrogen 8 mg/dL (9-20); Calcium 8.1 mg/dL (8.4-10.2); Carbon Dioxide 37 mmol/L (22-30); Chloride 100 mmol/L (98-107); Glucose 95 mg/dL (74-99); Potassium 3.9 mmol/L (3.5-5.1); Sodium 139 mmol/L (137-145)
[2019-01-03 07:09] LABS: Glucose,Whole Blood 98 mg/dL (75-99)
[2019-01-03] MEDS: INSULIN ASPART (NovoLOG) 100 UNIT/ML VIAL SQ SCH ×4 (07:41→21:18)
[2019-01-03] MEDS: LISINOPRIL 10 MG TAB PO SCH (07:49)
[2019-01-03] MEDS: PANTOPRAZOLE 40 MG TABLET PO SCH (07:49)
[2019-01-03] MEDS: VANCOMYCIN 2,000 MG in SODIUM CHLORIDE 0.9% 500 ML 500 ML IVPB SCH ×2 (07:59→14:31)
[2019-01-03] MEDS: CEFEPIME 2 GM in SODIUM CHLORIDE 0.9% 100 ML IVPB SCH ×2 (08:01→22:18)
[2019-01-03] MEDS: NICOTINE 14MG/24HR PATCH TRANSDERM SCH (10:05)
[2019-01-03 11:50] LABS: Glucose,Whole Blood 116 mg/dL (75-99)
[2019-01-03] MEDS: MULTIVITAMINS, THERA 1 EACH TAB PO SCH (12:14)
--- NOTE | 2019-01-03 13:03 | P.PN ---
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 He was initially admitted to ICU. He had extensive surgery by urology including scrotal expiration with drainage excision of the devitalized tissue from the scrotal and perineal abscess. He is maintained on 3 IV antibiotics. Infectious disease on board. Patient just came out of the ICU today. On 01/01/2019 Patient says that the pain and swelling is doing much better but is still has swelling He does not complain of any more fevers No chest pain or racing heart 01/02/2019 Patient says that he's been swelling is the same or a little better he says that he is constipated and hasn't had a bowel movement. He is passing gases and has no belly pain 01/03/2019 He says that he had a bowel movement yesterday Still has swelling not getting worse. He still has erythema around the site Objective - Vital Signs Vital signs: Vital Signs Temp 98.2 F 01/03/19 07:00 Pulse 79 01/03/19 07:00 Resp 16 01/03/19 07:00 BP 138/75 01/03/19 07:00 Pulse Ox 98 01/03/19 07:00 Intake & Output 01/02/19 01/03/19 01/03/19 18:59 06:59 18:59 Intake Total 720 650 Output Total 2500 950 Balance -1780 -300 Intake: IV 650 Cefepime 2 gm In Sodium 100 Chloride 0.9% 100 ml @ 200 mls/hr IVPB Q12HR [facility] Rx#:[id number] Clindamycin 600 mg In 50 Dextrose 5% in Water 50 ml @ 50 mls/hr IVPB Q8HR [facility] Rx#:[id number] Vancomycin 2,000 mg In 500 Sodium Chloride 0.9% 500 ml 500 ml @ 167 mls/hr IVPB Q8H [facility] Rx#: [id number] Oral 720 Output: Urine 2500 950 Other: Voiding Method Indwelling Catheter Indwelling Catheter Indwelling Catheter # Voids 1 # Bowel Movements 1 - Exam On exam, alert and oriented x3. HEENT: Conjunctivae normal. eyes normal. NECK: No JVD. No thyroid enlargement. No LNs CARDIOVASCULAR: S1, S2 muffled. No murmur RESPIRATION: Breath sounds diminished in the bases. No rhonchi or crackles. No bronchial breathing. ABDOMEN: Soft, nontender . No guarding. no masses palpable. No ascites, No hepatosplenomegaly.Bowel sounds heard. patient is having dressing applied at the bilateral inguinal area status post surgery and the scrotal area. The scrotum is swollen as is the care Area. He has erythema extending up to the suprapubic area LEGS: No edema. no swelling NERVOUS SYSTEM: Cranial N 2-12 grossly normal. Moves all 4 limbs. No focal deficits. No sensory deficit. No signs of cerebellar dysfucntion. Skin: no ulcer no rash - Labs CBC & Chem 7: 01/03/19 06:27 01/03/19 06:27 Labs: Abnormal Lab Results - Last 24 Hours (Table) 01/02/19 01/02/19 01/03/19 Range/Units 16:26 21:12 06:27 WBC 12.5 H (3.8-10.6) k/uL RBC 3.96 L (4.30-5.90) m/uL Hgb 10.8 L (13.0-17.5) gm/dL Hct 34.3 L (39.0-53.0) % Neutrophils # 10.4 H (1.3-7.7) k/uL Carbon Dioxide (22-30) mmol/L BUN (9-20) mg/dL Creatinine (0.66-1.25) mg/dL POC Glucose (mg/dL) 188 H 185 H (75-99) mg/dL Calcium (8.4-10.2) mg/dL 01/03/19 01/03/19 Range/Units 06:27 11:43 WBC (3.8-10.6) k/uL RBC (4.30-5.90) m/uL Hgb (13.0-17.5) gm/dL Hct (39.0-53.0) % Neutrophils # (1.3-7.7) k/uL Carbon Dioxide 37 H (22-30) mmol/L BUN 8 L (9-20) mg/dL Creatinine 0.45 L (0.66-1.25) mg/dL POC Glucose (mg/dL) 116 H (75-99) mg/dL Calcium 8.1 L (8.4-10.2) mg/dL Microbiology - Last 24 Hours (Table) 12/28/18 14:50 Anaerobic Culture - Final Scrotum Prevotella melaninogenica 12/28/18 14:50 Anaerobic Culture - Final Scrotum Anaerobic Gram Positive Cocci Anaerobic Gm Negative Bacilli Anaerobic Gram Positive Cocci#2 12/28/18 14:50 Anaerobic Culture - Final Scrotum Anaerobic Gram Positive Cocci Anaerobic Gm Negative Bacilli#3 Anaerobic Gm Negative Bacilli#2 12/28/18 11:15 Blood Culture - Preliminary Blood No Growth after 120 hours Assessment and Plan Assessment: - Saskia,s gangrene with scrotal and perineal abscess and necrotizing infection status post drainage and excision of the devitalized tissue - sinus tachycardia improved - Diabetes mellitus - Leukocytosis - Hypertension - obesity Plan 01/01/2019 - We'll continue antibiotics as per infectious disease - continue breathing treatments - Continue insulin. - Continue rest of the medical care - We'll continue to monitor 01/02/2019 Continue antibiotics Pending final culture identification blood sugars better controlled today We will start him on Dulcolax when necessary for constipation Continue rest of the medical care We'll follow up with the patient 01/03/2019 Continue antibiotics Continue Dulcolax when necessary Patient still has swelling and redness on the scrotum and in the groin area which is slowly improving Continue dressing changes We'll follow up on admission Time with Patient: Less than 30
--- NOTE | 2019-01-03 14:02 | P.PN ---
Subjective Progress Note Date: 01/03/19 Principal diagnosis: Saskia's gangrene The patient states that he continues to feel better. He reports pain only when his wounds are touched. Objective - Vital Signs Vital signs: Vital Signs Temp 98.2 F 01/03/19 07:00 Pulse 79 01/03/19 07:00 Resp 16 01/03/19 07:00 BP 138/75 01/03/19 07:00 Pulse Ox 98 01/03/19 07:00 Intake & Output 01/02/19 01/03/19 01/03/19 18:59 06:59 18:59 Intake Total 720 650 Output Total 2500 950 Balance -1780 -300 Intake: IV 650 Cefepime 2 gm In Sodium 100 Chloride 0.9% 100 ml @ 200 mls/hr IVPB Q12HR [facility] Rx#:[id number] Clindamycin 600 mg In 50 Dextrose 5% in Water 50 ml @ 50 mls/hr IVPB Q8HR [facility] Rx#:[id number] Vancomycin 2,000 mg In 500 Sodium Chloride 0.9% 500 ml 500 ml @ 167 mls/hr IVPB Q8H [facility] Rx#: [id number] Oral 720 Output: Urine 2500 950 Other: Voiding Method Indwelling Catheter Indwelling Catheter Indwelling Catheter # Voids 1 # Bowel Movements 1 - Constitutional General appearance: Present: cooperative, no acute distress - Genitourinary Genitourinary Comment(s): There is persistent moderate scrotal edema. The wounds are all clean, showing no evidence of purulence or necrotic tissue. The cellulitis superolateral to the right groin incision appears to be somewhat diminished. - Labs CBC & Chem 7: 01/03/19 06:27 01/03/19 06:27 Labs: Abnormal Lab Results - Last 24 Hours (Table) 01/02/19 01/02/19 01/03/19 Range/Units 16:26 21:12 06:27 WBC 12.5 H (3.8-10.6) k/uL RBC 3.96 L (4.30-5.90) m/uL Hgb 10.8 L (13.0-17.5) gm/dL Hct 34.3 L (39.0-53.0) % Neutrophils # 10.4 H (1.3-7.7) k/uL Carbon Dioxide (22-30) mmol/L BUN (9-20) mg/dL Creatinine (0.66-1.25) mg/dL POC Glucose (mg/dL) 188 H 185 H (75-99) mg/dL Calcium (8.4-10.2) mg/dL 01/03/19 01/03/19 Range/Units 06:27 11:43 WBC (3.8-10.6) k/uL RBC (4.30-5.90) m/uL Hgb (13.0-17.5) gm/dL Hct (39.0-53.0) % Neutrophils # (1.3-7.7) k/uL Carbon Dioxide 37 H (22-30) mmol/L BUN 8 L (9-20) mg/dL Creatinine 0.45 L (0.66-1.25) mg/dL POC Glucose (mg/dL) 116 H (75-99) mg/dL Calcium 8.1 L (8.4-10.2) mg/dL Microbiology - Last 24 Hours (Table) 12/28/18 11:15 Blood Culture - Final Blood No Growth after 144 hours 12/28/18 14:50 Anaerobic Culture - Final Scrotum Prevotella melaninogenica 12/28/18 14:50 Anaerobic Culture - Final Scrotum Anaerobic Gram Positive Cocci Anaerobic Gm Negative Bacilli Anaerobic Gram Positive Cocci#2 12/28/18 14:50 Anaerobic Culture - Final Scrotum Anaerobic Gram Positive Cocci Anaerobic Gm Negative Bacilli#3 Anaerobic Gm Negative Bacilli#2 Assessment and Plan (1) Saskia gangrene Current Visit: Yes Status: Acute Code(s): N49.3 - SASKIA GANGRENE SNOMED Code(s): 726256009 Plan: Continue local wound care and broad-spectrum antibiotics. Final culture results have shown Staphylococcus simulans, as well as several species of gram-negative bacilli which have not been identified. I am hopeful that these organisms will be identified to tailor appropriate antibiotic therapy.
[2019-01-03] MEDS: LACTATED RINGERS 1,000 ML IV SCH (14:32)
[2019-01-03 17:01] LABS: Glucose,Whole Blood 160 mg/dL (75-99)
[2019-01-03 21:05] LABS: Glucose,Whole Blood 165 mg/dL (75-99)
[2019-01-03] MEDS: diphenhydrAMINE 50 MG/ML 1 ML VIAL IVP PRN (21:15)
[2019-01-03] MEDS: INSULIN DETEMIR (LEVEMIR) 100 UNIT/ML SYR SQ SCH (21:17)
[2019-01-04] MEDS: VANCOMYCIN 2,000 MG in SODIUM CHLORIDE 0.9% 500 ML 500 ML IVPB SCH ×3 (00:09→16:05)
[2019-01-04] MEDS: HEPARIN SODIUM,PORCINE 5,000 UNIT/ML 1 ML VIAL SQ SCH ×3 (00:14→16:06)
[2019-01-04] MEDS: CLINDAMYCIN 600 MG in DEXTROSE 5% IN WATER 50 ML IVPB SCH ×6 (01:02→16:01)
[2019-01-04] MEDS ORDERED: VANCOMYCIN TROUGH DUE 1 EACH MISC MISCELLANE ONE (06:00)
[2019-01-04] MEDS: MORPHINE SULFATE 4 MG/ML SYRINGE IV PRN ×2 (06:01→11:53)
[2019-01-04 07:07] LABS: Glucose,Whole Blood 101 mg/dL (75-99)
[2019-01-04] MEDS: NICOTINE 14MG/24HR PATCH TRANSDERM SCH (07:37)
[2019-01-04] MEDS: INSULIN ASPART (NovoLOG) 100 UNIT/ML VIAL SQ SCH ×4 (07:37→20:27)
[2019-01-04 07:43] LABS: HCT 34.1 % (39.0-53.0); HGB 11.2 gm/dL (13.0-17.5); MCH 28.3 pg (25.0-35.0); MCV 85.9 fL (80.0-100.0); Mean Platelet Volume 6.9; Platelet Count 263 k/uL (150-450); RBC 3.97 m/uL (4.30-5.90); RDW 14.4 % (11.5-15.5); WBC 9.7 k/uL (3.8-10.6)
[2019-01-04] MEDS: diphenhydrAMINE 50 MG/ML 1 ML VIAL IVP PRN ×3 (07:44→22:39)
[2019-01-04 07:51] LABS: Anion Gap 3 mmol/L; Blood Urea Nitrogen 8 mg/dL (9-20); Calcium 8.4 mg/dL (8.4-10.2); Carbon Dioxide 35 mmol/L (22-30); Chloride 100 mmol/L (98-107); Glucose 92 mg/dL (74-99); Potassium 4.2 mmol/L (3.5-5.1); Sodium 138 mmol/L (137-145)
[2019-01-04] MEDS: PANTOPRAZOLE 40 MG TABLET PO SCH (07:59)
[2019-01-04] MEDS: LISINOPRIL 10 MG TAB PO SCH (07:59)
[2019-01-04] MEDS: CEFEPIME 2 GM in SODIUM CHLORIDE 0.9% 100 ML IVPB SCH ×2 (09:22→20:21)
[2019-01-04] MEDS: MULTIVITAMINS, THERA 1 EACH TAB PO SCH (11:48)
[2019-01-04 11:53] LABS: Glucose,Whole Blood 105 mg/dL (75-99)
--- NOTE | 2019-01-04 12:58 | P.PN ---
Subjective Progress Note Date: 01/04/19 Principal diagnosis: Saskia's gangrene The patient states that he continues to feel better. He remains afebrile and denies pain. He is ambulating some, and states that his only discomfort is when he bends his torso to get out of bed. Objective - Vital Signs Vital signs: Vital Signs Temp 98.3 F 01/04/19 07:00 Pulse 82 01/04/19 07:00 Resp 16 01/04/19 07:00 BP 142/83 01/04/19 07:00 Pulse Ox 92 L 01/04/19 07:00 Intake & Output 01/03/19 01/04/19 01/04/19 18:59 06:59 18:59 Intake Total 240 1200 Output Total 8100 1700 Balance 240 -6900 -1700 Intake: IV 1200 Cefepime 2 gm In Sodium 100 Chloride 0.9% 100 ml @ 200 mls/hr IVPB Q12HR [facility] Rx#:[id number] Clindamycin 600 mg In 100 Dextrose 5% in Water 50 ml @ 50 mls/hr IVPB Q8HR [facility] Rx#:[id number] Vancomycin 2,000 mg In 1000 Sodium Chloride 0.9% 500 ml 500 ml @ 167 mls/hr IVPB Q8H [facility] Rx#: [id number] Oral 240 Output: Urine 8100 1700 Other: Voiding Method Indwelling Catheter Indwelling Catheter Indwelling Catheter # Voids 1 - Constitutional General appearance: Present: cooperative, no acute distress - Gastrointestinal Gastrointestinal Comment(s): The wounds appear clean. A small area of necrotic tissue was debrided from the medial aspect of the right groin incision. There is no purulence. The cellulitis superolateral to the right groin incision appears diminished. - Labs CBC & Chem 7: 01/04/19 07:19 01/04/19 07:19 Labs: Abnormal Lab Results - Last 24 Hours (Table) 01/03/19 01/03/19 01/04/19 Range/Units 16:59 21:03 07:05 RBC (4.30-5.90) m/uL Hgb (13.0-17.5) gm/dL Hct (39.0-53.0) % Carbon Dioxide (22-30) mmol/L BUN (9-20) mg/dL Creatinine (0.66-1.25) mg/dL POC Glucose (mg/dL) 160 H 165 H 101 H (75-99) mg/dL 01/04/19 01/04/19 01/04/19 Range/Units 07:19 07:19 11:46 RBC 3.97 L (4.30-5.90) m/uL Hgb 11.2 L (13.0-17.5) gm/dL Hct 34.1 L (39.0-53.0) % Carbon Dioxide 35 H (22-30) mmol/L BUN 8 L (9-20) mg/dL Creatinine 0.39 L (0.66-1.25) mg/dL POC Glucose (mg/dL) 105 H (75-99) mg/dL Microbiology - Last 24 Hours (Table) 12/28/18 11:15 Blood Culture - Final Blood No Growth after 144 hours Assessment and Plan (1) Saskia gangrene Current Visit: Yes Status: Acute Code(s): N49.3 - SASKIA GANGRENE SNOMED Code(s): 438111596 Plan: Continue local wound care and broad-spectrum antibiotics. Final culture results have shown Staphylococcus simulans, as well as several species of gram-negative bacilli which have not been identified. I contacted the microbiology department, and they will do further testing for organism identification and sensitivities.
[2019-01-04] MEDS: LACTATED RINGERS 1,000 ML IV SCH (13:37)
[2019-01-04 16:44] LABS: Glucose,Whole Blood 130 mg/dL (75-99)
[2019-01-04] MEDS: HYDROcodone/APAP 5-325MG 1 EACH TAB PO PRN (18:13)
[2019-01-04 20:16] LABS: Glucose,Whole Blood 239 mg/dL (75-99)
[2019-01-04] MEDS: INSULIN DETEMIR (LEVEMIR) 100 UNIT/ML SYR SQ SCH (20:36)
--- NOTE | 2019-01-04 21:45 | P.PN ---
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 He was initially admitted to ICU. He had extensive surgery by urology including scrotal expiration with drainage excision of the devitalized tissue from the scrotal and perineal abscess. He is maintained on 3 IV antibiotics. Infectious disease on board. Patient just came out of the ICU today. On 01/01/2019 Patient says that the pain and swelling is doing much better but is still has swelling He does not complain of any more fevers No chest pain or racing heart 01/02/2019 Patient says that he's been swelling is the same or a little better he says that he is constipated and hasn't had a bowel movement. He is passing gases and has no belly pain 01/03/2019 He says that he had a bowel movement yesterday Still has swelling not getting worse. He still has erythema around the site 01/04/19 says he is doing better pain is getting better Objective - Vital Signs Vital signs: Vital Signs Temp 98.7 F 01/04/19 19:51 Pulse 84 01/04/19 19:51 Resp 16 01/04/19 19:51 BP 136/83 01/04/19 19:51 Pulse Ox 94 L 01/04/19 19:51 Intake & Output 01/04/19 01/04/19 01/05/19 06:59 18:59 06:59 Intake Total 1200 Output Total 8100 3900 900 Balance -6900 -3900 -900 Intake: IV 1200 Cefepime 2 gm In Sodium 100 Chloride 0.9% 100 ml @ 200 mls/hr IVPB Q12HR [facility] Rx#:[id number] Clindamycin 600 mg In 100 Dextrose 5% in Water 50 ml @ 50 mls/hr IVPB Q8HR [facility] Rx#:[id number] Vancomycin 2,000 mg In 1000 Sodium Chloride 0.9% 500 ml 500 ml @ 167 mls/hr IVPB Q8H [facility] Rx#: [id number] Output: Urine 8100 3900 900 Other: Voiding Method Indwelling Catheter Indwelling Catheter - Exam On exam, alert and oriented x3. HEENT: Conjunctivae normal. eyes normal. NECK: No JVD. No thyroid enlargement. No LNs CARDIOVASCULAR: S1, S2 muffled. No murmur RESPIRATION: Breath sounds diminished in the bases. No rhonchi or crackles. No bronchial breathing. ABDOMEN: Soft, nontender . No guarding. no masses palpable. No ascites, No hepatosplenomegaly.Bowel sounds heard. patient is having dressing applied at the bilateral inguinal area status post surgery and the scrotal area. The scrotum is swollen as is the care Area. He has erythema extending up to the suprapubic area LEGS: No edema. no swelling NERVOUS SYSTEM: Cranial N 2-12 grossly normal. Moves all 4 limbs. No focal deficits. No sensory deficit. No signs of cerebellar dysfucntion. Skin: no ulcer no rash - Labs CBC & Chem 7: 01/04/19 07:19 01/04/19 07:19 Labs: Abnormal Lab Results - Last 24 Hours (Table) 01/04/19 01/04/19 01/04/19 Range/Units 07:05 07: 07:19 RBC 3.97 L (4.30-5.90) m/uL Hgb 11.2 L (13.0-17.5) gm/dL Hct 34.1 L (39.0-53.0) % Carbon Dioxide 35 H (22-30) mmol/L BUN 8 L (9-20) mg/dL Creatinine 0.39 L (0.66-1.25) mg/dL POC Glucose (mg/dL) 101 H (75-99) mg/dL 01/04/19 01/04/19 01/04/19 Range/Units 11:46 16:43 20:14 RBC (4.30-5.90) m/uL Hgb (13.0-17.5) gm/dL Hct (39.0-53.0) % Carbon Dioxide (22-30) mmol/L BUN (9-20) mg/dL Creatinine (0.66-1.25) mg/dL POC Glucose (mg/dL) 105 H 130 H 239 H (75-99) mg/dL Assessment and Plan Assessment: - Saskia,s gangrene with scrotal and perineal abscess and necrotizing infection status post drainage and excision of the devitalized tissue - sinus tachycardia improved - Diabetes mellitus - Leukocytosis - Hypertension - obesity Plan 01/01/2019 - We'll continue antibiotics as per infectious disease - continue breathing treatments - Continue insulin. - Continue rest of the medical care - We'll continue to monitor 01/02/2019 Continue antibiotics Pending final culture identification blood sugars better controlled today We will start him on Dulcolax when necessary for constipation Continue rest of the medical care We'll follow up with the patient 01/03/2019 Continue antibiotics Continue Dulcolax when necessary Patient still has swelling and redness on the scrotum and in the groin area which is slowly improving Continue dressing changes We'll follow up on admission 01/04/19 - Contiue abx ad per ID - Urology manageing the drains in the groin area - Pt peeing a lot, probbaly due to the fluid in the abx he is getting, lytes are normal, will monitor Time with Patient: Less than 30
[2019-01-05] MEDS: HEPARIN SODIUM,PORCINE 5,000 UNIT/ML 1 ML VIAL SQ SCH ×3 (00:38→17:38)
[2019-01-05] MEDS: MORPHINE SULFATE 4 MG/ML SYRINGE IV PRN ×2 (00:39→06:02)
[2019-01-05] MEDS: CLINDAMYCIN 600 MG in DEXTROSE 5% IN WATER 50 ML IVPB SCH ×6 (00:41→17:38)
--- NOTE | 2019-01-05 00:52 | P.PN ---
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 Patient is a 28-year-old male who has been admitted to hospital with Saskia's gangrene the patient is status post extensive debridement of the scrotal tissue local culture has been positive for anaerobic gram-positive and gram-negative bacilli in addition to staphylococcus simulans which is oxacillin sensitive the patient is currently being treated with vancomycin and cefepime and clindamycin, the patient RN and did notice possible rash to the lower extremities has called me to reevaluate the patient and revisit the antibiotic On today's evaluation that is 01/04/2019 the patient currently denies having any fever or any chills the patient pain to scrotal area is currently controlled with pain medication denies having any chest pain or shortness of breath or cough denies significant itching to the leg area and thought he was sweating last night and may have led to some of the changes in the leg seen by the RN last night ROS: Positive points mentioned in HPI rest of the systems negative Past medical surgical history reviewed Medications reviewed Objective - Vital Signs Vital signs: Vital Signs Temp 98.3 F 01/04/19 14:54 Pulse 90 01/04/19 14:54 Resp 16 01/04/19 14:54 BP 128/49 01/04/19 14:54 Pulse Ox 92 L 01/04/19 14:54 Intake & Output 01/03/19 01/04/19 01/04/19 18:59 06:59 18:59 Intake Total 240 1200 Output Total 8100 1700 Balance 240 -6900 -1700 Intake: IV 1200 Cefepime 2 gm In Sodium 100 Chloride 0.9% 100 ml @ 200 mls/hr IVPB Q12HR [facility] Rx#:[id number] Clindamycin 600 mg In 100 Dextrose 5% in Water 50 ml @ 50 mls/hr IVPB Q8HR [facility] Rx#:[id number] Vancomycin 2,000 mg In 1000 Sodium Chloride 0.9% 500 ml 500 ml @ 167 mls/hr IVPB Q8H [facility] Rx#: [id number] Oral 240 Output: Urine 8100 1700 Other: Voiding Method Indwelling Catheter Indwelling Catheter Indwelling Catheter # Voids 1 - Exam GENERAL DESCRIPTION:[ Patient is awake and alert in no distress] HEENT: [Oral mucosa is dry and no pharyngeal erythema] EYES : [No pallor or scleral icterus] RESPIRATORY SYSTEM: [Unlabored breathing clear to auscultation] CARDIA VASCULAR SYSTEM: [S1-S2 regular rate and rhythm no murmur] GI: [Abdominal soft there's no tenderness no organomegaly, scrotal and groin area with multiple drains and dressings no significant redness or drainage] EXTREMITIES: [No edema feet, mild erythematous rash but no vesicles] - Labs CBC & Chem 7: 01/04/19 07:19 01/04/19 07:19 Labs: Abnormal Lab Results - Last 24 Hours (Table) 01/03/19 01/03/19 01/04/19 Range/Units 16:59 21:03 07:05 RBC (4.30-5.90) m/uL Hgb (13.0-17.5) gm/dL Hct (39.0-53.0) % Carbon Dioxide (22-30) mmol/L BUN (9-20) mg/dL Creatinine (0.66-1.25) mg/dL POC Glucose (mg/dL) 160 H 165 H 101 H (75-99) mg/dL 01/04/19 01/04/19 01/04/19 Range/Units 07:19 07:19 11:46 RBC 3.97 L (4.30-5.90) m/uL Hgb 11.2 L (13.0-17.5) gm/dL Hct 34.1 L (39.0-53.0) % Carbon Dioxide 35 H (22-30) mmol/L BUN 8 L (9-20) mg/dL Creatinine 0.39 L (0.66-1.25) mg/dL POC Glucose (mg/dL) 105 H (75-99) mg/dL 01/04/19 Range/Units 16:43 RBC (4.30-5.90) m/uL Hgb (13.0-17.5) gm/dL Hct (39.0-53.0) % Carbon Dioxide (22-30) mmol/L BUN (9-20) mg/dL Creatinine (0.66-1.25) mg/dL POC Glucose (mg/dL) 130 H (75-99) mg/dL Microbiology - Last 24 Hours (Table) 12/28/18 11:15 Blood Culture - Final Blood No Growth after 144 hours Assessment and Plan Assessment: 1-patient with Saskia's gangrene culture has been positive for anaerobic gram- positive and gram-negative bacilli in addition to Staphylococcus Simulans oxacillin sensitive with the RN consult for possible rash and possible ant ibiotic associated, with no significant symptoms today questionably related to vancomycin infusion last night and as the organism is oxacillin sensitive to vancomycin can be safely discontinued Plan: 1-the patient to continue with cefepime and clindamycin 2-discontinue the vancomycin with a possible drug rash related rate last night and no need for it as organism is oxacillin sensitive Dr. Leonard will resume care as of tomorrow Time with Patient: Greater than 30
[2019-01-05 07:12] LABS: Glucose,Whole Blood 100 mg/dL (75-99)
[2019-01-05] MEDS: diphenhydrAMINE 50 MG/ML 1 ML VIAL IVP PRN ×2 (07:12→20:49)
[2019-01-05] MEDS: NICOTINE 14MG/24HR PATCH TRANSDERM SCH (08:47)
[2019-01-05] MEDS: INSULIN ASPART (NovoLOG) 100 UNIT/ML VIAL SQ SCH ×4 (08:47→20:50)
[2019-01-05] MEDS: LISINOPRIL 10 MG TAB PO SCH (08:47)
[2019-01-05] MEDS: PANTOPRAZOLE 40 MG TABLET PO SCH (08:47)
[2019-01-05] MEDS: CEFEPIME 2 GM in SODIUM CHLORIDE 0.9% 100 ML IVPB SCH ×2 (11:02→20:50)
[2019-01-05] MEDS: HYDROcodone/APAP 5-325MG 1 EACH TAB PO PRN ×2 (11:11→20:52)
[2019-01-05 11:28] LABS: Glucose,Whole Blood 147 mg/dL (75-99)
[2019-01-05] MEDS: MULTIVITAMINS, THERA 1 EACH TAB PO SCH (12:27)
[2019-01-05] MEDS: LACTATED RINGERS 1,000 ML IV SCH (12:40)
--- NOTE | 2019-01-05 15:05 | P.PN ---
Progress Note - Text Progress Note Date: 01/05/19 The patient remains afebrile. His pain continues to decrease. On examination there is much less induration and edema in the suprapubic area and groins compared with when I last examined him 4 days ago. The red rubber catheters fell out earlier today and the Beatrice drain exiting from the left groin will be removed later today. The incisions appear clean. From my standpoint the patient could probably be discharged in another day or two but he will need a visiting nurse to assist in wound care. His Condon catheter will remain in place until more of his scrotal edema resolves.
[2019-01-05 16:34] LABS: Glucose,Whole Blood 220 mg/dL (75-99)
[2019-01-05 19:52] LABS: Glucose,Whole Blood 178 mg/dL (75-99)
[2019-01-05] MEDS: INSULIN DETEMIR (LEVEMIR) 100 UNIT/ML SYR SQ SCH (20:51)
--- NOTE | 2019-01-06 00:22 | P.PN ---
Subjective Progress Note Date: 01/05/19 28-year-old male known history Diabetes mellitus type 2 that has been poorly controlled. He relates that he's had some recent medication changes and his blood sugars have not been nearly as well controlled as they were in the past. It is also related that he often will smoke 2 packs of cigarettes a day when he is stressed and working. 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 The patient relates approximately 6 days before coming to hospital he started to feel poorly with some generalized malaise low-grade fever and discomfort to his scrotum. The following days he had increasing scrotal swelling and discomfort. The day of admission he was feeling very poorly the most inferior aspect of the scrotum was extremely tender and become quite swollen and constantly presented. At the time of admission it was evident that there was some necrosis to the scrotum and urgent surgical consult with urology occurred. The patient is or even taken in the operating room and the surgical debridement has occurred to the scrotum. There was some minimal necrotizing infection and debridement has occurred. Patient was transferred to the intensive care unit shortly thereafter was extubated and is now sitting upright and talking. With this, mouth is very dry and looks forward to being able to drink water in the near future. 12/29/2018 the patient continues to feel somewhat poorly. There is evidence of some ongoing necrotic tissue and urology was taken to the operating room later today. 12/30/2018 patient is status post second surgery for there was further necrotic material along the spermatic cord. The patient has multiple drains in place and is feeling better here time he is uncomfortable is with the dressing change. His fever 101.2 has resolved and so 98.5. Leukocytosis is slightly improved cultures are pending. 12/31/2018 patient is feeling somewhat better. Pain is really better control of does have some headache after he receives his morphine. He is having no fevers. No further surgical interventions were required. 12/28/2018 overall improved definitive a drug eruption and vancomycin has been discontinued. No further fevers. The rash improving. Objective - Vital Signs Vital signs: Vital Signs Temp 98.1 F 01/05/19 19:00 Pulse 85 01/05/19 19:00 Resp 14 01/05/19 19:00 BP 126/73 01/05/19 19:00 Pulse Ox 93 L 01/05/19 19:00 Intake & Output 01/05/19 01/05/19 01/06/19 06:59 18:59 06:59 Intake Total 850 Output Total 1250 3600 2250 Balance -1250 -2750 -2250 Intake: IV 250 Cefepime 2 gm In Sodium 100 Chloride 0.9% 100 ml @ 200 mls/hr IVPB Q12HR [facility] Rx#:[id number] Clindamycin 600 mg In 50 Dextrose 5% in Water 50 ml @ 50 mls/hr IVPB Q8HR [facility] Rx#:[id number] Lactated Ringers 1,000 ml 100 @ 20 mls/hr IV .Q24H [facility] Rx#:[id number] Oral 600 Output: Urine 1250 3600 2250 Uretheral (Condon) 2700 Other: Voiding Method Indwelling Catheter Indwelling Catheter Indwelling Catheter - Exam HEENT: Anicteric conjunctiva are pink and moist nasal mucosa grossly intact without significant lesions, there is no thrush. Neck: The neck is supple without significant lymphadenopathy or thyromegaly. Lungs: Good bilateral air entry without significant crackles or wheezing. There is no significant bronchial sounds. There is no egophony or dullness. Heart: Regular rate and rhythm with an audible S1-S2, no S3 no S4. There is no significant murmur click or rub, PMI was nondisplaced. Abdomen: Positive bowel sounds soft and nontender without palpable masses or organomegaly. There was no guarding or rebound. Extremities: The upper extremities have excellent pulses they are symmetric, no significant petechiae or telangiectasia. No splinter hemorrhages were noted. The lower extremities are free from significant edema. The peripheral pulses were 2+ and symmetric. Neuro: Awake alert oriented to person place and time. There are no acute new gross focal sensory motor deficits. skin: The scrotum is evidence of the current dressing, there is still significant swelling of the scrotum. The Austin drain in Red rubber catheter noted. There is no fluctuance. Is at most moderate tenderness into the right groin area - Labs CBC & Chem 7: 01/04/19 07:19 01/04/19 07:19 Labs: Abnormal Lab Results - Last 24 Hours (Table) 01/05/19 01/05/19 01/05/19 Range/Units 07:04 11:22 16:26 POC Glucose (mg/dL) 100 H 147 H 220 H (75-99) mg/dL 01/05/19 Range/Units 19:50 POC Glucose (mg/dL) 178 H (75-99) mg/dL Microbiology - Last 24 Hours (Table) 12/28/18 14:50 Gram Stain - Final Scrotum Tissue Culture - Final Staphylococcus simulans Gram Positive Bacilli Isolated Laboratory Results WBC 9.7 k/uL (3.8-10.6) 01/04/19 07:19 RBC 3.97 m/uL (4.30-5.90) L 01/04/19 07:19 Hgb 11.2 gm/dL (13.0-17.5) L 01/04/19 07:19 Hct 34.1 % (39.0-53.0) L 01/04/19 07:19 MCV 85.9 fL (80.0-100.0) 01/04/19 07:19 MCH 28.3 pg (25.0-35.0) 01/04/19 07:19 MCHC 33.0 g/dL (31.0-37.0) 01/04/19 07:19 RDW 14.4 % (11.5-15.5) 01/04/19 07:19 Plt Count 263 k/uL (150-450) 01/04/19 07:19 Neutrophils % 83 % 01/03/19 06:27 Lymphocytes % 11 % 01/03/19 06:27 Monocytes % 3 % 01/03/19 06:27 Eosinophils % 1 % 01/03/19 06:27 Basophils % 0 % 01/03/19 06:27 Neutrophils # 10.4 k/uL (1.3-7.7) H 01/03/19 06:27 Lymphocytes # 1.4 k/uL (1.0-4.8) 01/03/19 06:27 Monocytes # 0.4 k/uL (0-1.0) 01/03/19 06:27 Eosinophils # 0.2 k/uL (0-0.7) 01/03/19 06:27 Basophils # 0.0 k/uL (0-0.2) 01/03/19 06:27 Hypochromasia Slight 01/01/19 04:31 VBG pH 7.43 (7.31-7.41) H 12/28/18 11:15 VBG pCO2 40 mmHg (37-51) 12/28/18 11:15 VBG HCO3 26 mmol/L (24-28) 12/28/18 11:15 Sodium 138 mmol/L (137-145) 01/04/19 07:19 Potassium 4.2 mmol/L (3.5-5.1) 01/04/19 07:19 Chloride 100 mmol/L (98-107) 01/04/19 07:19 Carbon Dioxide 35 mmol/L (22-30) H 01/04/19 07:19 Anion Gap 3 mmol/L 01/04/19 07:19 BUN 8 mg/dL (9-20) L 01/04/19 07:19 Creatinine 0.39 mg/dL (0.66-1.25) L 01/04/19 07:19 Est GFR (CKD-EPI)AfAm >90 (>60 ml/min/1.73 sqM) 01/04/19 07:19 Est GFR (CKD-EPI)NonAf >90 (>60 ml/min/1.73 sqM) 01/04/19 07:19 Glucose 92 mg/dL (74-99) 01/04/19 07:19 POC Glucose (mg/dL) 178 mg/dL (75-99) H 01/05/19 19:50 POC Glu Floors Buffer Mary Berger 01/05/19 19:[address] Glu mg/dL 226 12/30/18 19:17 Hemoglobin A1c 9.5 % (4.0-6.0) H 12/30/18 19:17 Plasma Lactic Acid Renzo 1.3 mmol/L (0.7-2.0) 12/28/18 11:15 Calcium 8.4 mg/dL (8.4-10.2) 01/04/19 07:19 Phosphorus 4.6 mg/dL (2.5-4.5) H 01/01/19 04:31 Magnesium 1.9 mg/dL (1.6-2.3) 01/01/19 04:31 Total Bilirubin 0.4 mg/dL (0.2-1.3) 12/28/18 11:15 AST 17 U/L (17-59) 12/28/18 11:15 ALT 27 U/L (21-72) 12/28/18 11:15 Alkaline Phosphatase 162 U/L (38-126) H 12/28/18 11:15 Total Protein 6.4 g/dL (6.3-8.2) 12/28/18 11:15 Albumin 3.2 g/dL (3.5-5.0) L 12/28/18 11:15 Vancomycin Trough 11.5 ug/mL 01/04/19 07:19 Microbiology 12/28/18 14:50 Scrotum Gram Stain - Final 12/28/18 14:50 Scrotum Tissue Culture - Final Staphylococcus simulans Gram Positive Bacilli Isolated 12/28/18 11:15 Blood Blood Culture - Final No Growth after 144 hours 12/28/18 14:50 Scrotum Anaerobic Culture - Final Prevotella melaninogenica 12/28/18 14:50 Scrotum Anaerobic Culture - Final Anaerobic Gram Positive Cocci Anaerobic Gm Negative Bacilli Anaerobic Gram Positive Cocci#2 12/28/18 14:50 Scrotum Anaerobic Culture - Final Anaerobic Gram Positive Cocci Anaerobic Gm Negative Bacilli#3 Anaerobic Gm Negative Bacilli#2 12/28/18 14:50 Scrotum Anaerobic Culture - Final Anaerobic Gram Positive Cocci Anaerobic Gm Negative Bacilli#2 12/28/18 14:50 Other - Other Gram Stain - Final 12/28/18 14:50 Other - Other Wound Culture - Final 12/28/18 14:50 Other - Other Gram Stain - Final 12/28/18 14:50 Other - Other Wound Culture - Final 12/28/18 14:50 Other - Other Gram Stain - Final 12/28/18 14:50 Other - Other Wound Culture - Final 12/28/18 23:16 Urine,Catheterized Urine Culture - Final Assessment and Plan (1) Saskia gangrene Narrative/Plan: 28-year-old male presents to Hospital with a six-day history of increasing pain and discomfort to the scrotum and eventually noticed that he was ill with fever and chills and constantly presented to the emergency center. There is evidence of necrotic area of the scrotum and was seen by urology urgently taken to the operating room. He is now status post the incision and drainage and debridement of the scrotum. Upon transfer to the ICU he remained intubated he has now been extubated and is awake and alert without acute changes. He is still having excellent pain control in the postoperative time frame. Antibiotic therapy is appropriate this point in time with cefepime and clindamycin and vancomycin. Clindamycin to reduce toxin production. The patient forcefully is not in septic shock and hopefully with antibiotics surgery in his resuscitation will have improvement. We discussed with a girlfriend and sister the significant importance of improving his blood glucose control in a smoking cessation will be extremely important in his healing process. Hemoglobin A1c should be updated. Cultures and response to therapy will drive the antibiotic choices at discharge. When possible and will be assessed and will assist with wound care potentially negative pressure therapy can be utilized. 12/29/2018 the patient is resting comfortably in fever has improved. However there remains some necrotic tissue at the base of the prior debridement site of the scrotum. Urology has evaluated with taking back to the operating room later this afternoon or early evening for further debridement. Cultures are in pr ocess and remains under broad-spectrum antibiotic therapy at this time. Blood glucose control is improving. The patient's family is present and we discussed the absolute importance of glucose control after his discharge to allow healing and prevent further infections such as this. Case management team discussions occurred, patient many wound VAC after discharge which may be challenging. As would IV antibiotic therapy. 12/30/2018 patient is feeling better this evening. Fever has improved. Pain is better controlled. Only time is having significant discomfort is with dressing change. Polymicrobial infection is noted however with the final culture results. Continue current extensive antibiotic therapy with cefepime, clindamycin, and vancomycin until we have further data 12/31/2018 patient does feel better. Having no further fever. Urology does not believe any further surgical interventions are required. Continue current antibiotic therapy until final cultures are available. May be able to streamline this in the near future based on culture results. 12/28/2018 cultures are finalized. Continue cefepime and clindamycin. Vancomycin discontinued. Surgical most reveal no evidence of any further surgical intervention currently planned. Discharge plan shall be very difficult . Current Visit: Yes Status: Acute Code(s): N49.3 - SASKIA GANGRENE SNOMED Code(s): 560526198 (2) Sepsis Current Visit: Yes Status: Acute Code(s): A41.9 - SEPSIS, UNSPECIFIED ORGANISM SNOMED Code(s): 86178460 (3) Fever Current Visit: No Status: Acute Code(s): R50.9 - FEVER, UNSPECIFIED SNOMED Code(s): 749550877 (4) Uncontrolled type 2 diabetes mellitus with complication Current Visit: Yes Status: Acute Code(s): E11.8 - TYPE 2 DIABETES MELLITUS WITH UNSPECIFIED COMPLICATIONS; E11.65 - TYPE 2 DIABETES MELLITUS WITH HYPERGLYCEMIA SNOMED Code(s): 21403261
[2019-01-06] MEDS: HEPARIN SODIUM,PORCINE 5,000 UNIT/ML 1 ML VIAL SQ SCH ×4 (00:37→22:30)
[2019-01-06] MEDS: CLINDAMYCIN 600 MG in DEXTROSE 5% IN WATER 50 ML IVPB SCH ×6 (00:38→19:03)
[2019-01-06] MEDS: diphenhydrAMINE 50 MG/ML 1 ML VIAL IVP PRN ×2 (02:17→22:42)
[2019-01-06] MEDS: HYDROcodone/APAP 5-325MG 1 EACH TAB PO PRN ×3 (05:31→19:02)
[2019-01-06 07:08] LABS: Glucose,Whole Blood 114 mg/dL (75-99)
[2019-01-06] MEDS: PANTOPRAZOLE 40 MG TABLET PO SCH (07:54)
[2019-01-06] MEDS: INSULIN ASPART (NovoLOG) 100 UNIT/ML VIAL SQ SCH ×4 (07:54→22:29)
--- NOTE | 2019-01-06 08:44 | P.PN ---
Progress Note - Text Progress Note Date: 01/06/19 The patient is afebrile. His diabetes is under much better control but he is concerned that when he is discharged from the hospital this may change as he is currently receiving insulin. His genital edema is gradually resolving. The incisions appear clean. The Magdalene drain that starts in the right groin that comes out through the dependent portion of the scrotum will be removed tomorrow. It may be possible to discharge the patient later in the week. Hopefully he will be able to be treated with oral antibiotics so a PICC line will not be required.
[2019-01-06] MEDS: CEFEPIME 2 GM in SODIUM CHLORIDE 0.9% 100 ML IVPB SCH ×2 (09:17→22:29)
[2019-01-06] MEDS: LISINOPRIL 10 MG TAB PO SCH (09:18)
[2019-01-06] MEDS: NICOTINE 14MG/24HR PATCH TRANSDERM SCH (09:18)
[2019-01-06 10:17] LABS: Basophils % (A) 0 %; Eosinophils # (A) 0.2 k/uL (0-0.7); Eosinophils % (A) 2 %; HCT 43.1 % (39.0-53.0); HGB 13.7 gm/dL (13.0-17.5); Hypochromasia Slight; Lymphocytes % (A) 19 %; MCH 27.4 pg (25.0-35.0); MCHC 31.9 g/dL (31.0-37.0); MCV 85.9 fL (80.0-100.0); Monocytes # (A) 0.4 k/uL (0-1.0); Monocytes % (A) 4 %; Neutrophils # (A) 7.8 k/uL (1.3-7.7); Neutrophils % (A) 74 %; Platelet Count 363 k/uL (150-450); RBC 5.02 m/uL (4.30-5.90); RDW 15.2 % (11.5-15.5); WBC 10.6 k/uL (3.8-10.6)
[2019-01-06 11:57] LABS: Glucose,Whole Blood 249 mg/dL (75-99)
[2019-01-06] MEDS: MULTIVITAMINS, THERA 1 EACH TAB PO SCH (12:52)
[2019-01-06 14:52] VITALS: BMI 46.0
[2019-01-06 16:58] LABS: Glucose,Whole Blood 180 mg/dL (75-99)
[2019-01-06 20:29] LABS: Glucose,Whole Blood 265 mg/dL (75-99)
[2019-01-06 22:22] LABS: Glucose,Whole Blood 228 mg/dL (75-99)
[2019-01-06] MEDS: INSULIN DETEMIR (LEVEMIR) 100 UNIT/ML SYR SQ SCH (22:28)
[2019-01-06] MEDS: LACTATED RINGERS 1,000 ML IV SCH (22:30)
--- NOTE | 2019-01-06 23:54 | P.PN ---
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 He was initially admitted to ICU. He had extensive surgery by urology including scrotal expiration with drainage excision of the devitalized tissue from the scrotal and perineal absc ess. He is maintained on 3 IV antibiotics. Infectious disease on board. Patient just came out of the ICU today. On 01/01/2019 Patient says that the pain and swelling is doing much better but is still has swelling He does not complain of any more fevers No chest pain or racing heart 01/02/2019 Patient says that he's been swelling is the same or a little better he says that he is constipated and hasn't had a bowel movement. He is passing gases and has no belly pain 01/03/2019 He says that he had a bowel movement yesterday Still has swelling not getting worse. He still has erythema around the site 01/04/19 says he is doing better pain is getting better 01/05/2019 Patient does have scrotal swelling and pain but is improving. No fever no chills. Currently being continued on IV antibiotics in the form of cefepime and clindamycin. Scrotal wound cultures showed gram-positive cocci and gram- negative bacilli. ID is following. Renal function improved. No difficulty in urination. No complaints of chest pain or shortness of breath. No nausea vomiting or abdominal pain. No diarrhea. No other acute overnight issues. Current medications reviewed. Objective - Vital Signs Vital signs: Vital Signs Temp 98 F 01/06/19 07:00 Pulse 74 01/06/19 07:00 Resp 16 01/06/19 07:00 BP 118/71 01/06/19 07:00 Pulse Ox 95 01/06/19 07:00 Intake & Output 01/05/19 01/06/19 01/06/19 18:59 06:59 18:59 Intake Total 850 350 Output Total 3600 3150 Balance -2750 -2800 Intake: IV 250 350 Cefepime 2 gm In Sodium 100 100 Chloride 0.9% 100 ml @ 200 mls/hr IVPB Q12HR [facility] Rx#:[id number] Clindamycin 600 mg In 50 50 Dextrose 5% in Water 50 ml @ 50 mls/hr IVPB Q8HR [facility] Rx#:[id number] Lactated Ringers 1,000 ml 100 200 @ 20 mls/hr IV .Q24H [facility] Rx#:[id number] Oral 600 Output: Urine 3600 3150 Uretheral (Condon) 2700 Other: Voiding Method Indwelling Catheter Indwelling Catheter - Exam PHYSICAL EXAMINATION: Patient is lying in the bed comfortably, no acute distress, awake alert and oriented.. HEENT: Normocephalic. Neck is supple. Pupils reactive. Nostrils clear. Oral cavity is moist. Ears reveal no drainage. Neck reveals no JVD, carotid bruits, or thyromegaly. CHEST EXAMINATION: Trachea is central. Symmetrical expansion. Lung rangel clear to auscultation and percussion. CARDIAC: Normal S1, S2 with no gallops. No murmurs ABDOMEN: Soft. Bowel sounds normal. No organomegaly. No abdominal bruits. Patient does have scrotal swelling and redness and tenderness and right groin I&D wound. no purulent drainage is noted. Extremities: reveal no edema. No clubbing or cyanosis Neurologically awake, alert, oriented x3 with well-coordinated movements. No focal deficits noted Skin: No rash or skin lesions. Psychiatric: Coperative. Nonsuicidal Musculoskeletal: No joint swelling or deformity. Normal range of motion. - Labs CBC & Chem 7: 01/06/19 09:42 01/04/19 07:19 Labs: Abnormal Lab Results - Last 24 Hours (Table) 01/05/19 01/05/19 01/05/19 Range/Units 11:22 16:26 19:50 Neutrophils # (1.3-7.7) k/uL POC Glucose (mg/dL) 147 H 220 H 178 H (75-99) mg/dL 01/06/19 01/06/19 Range/Units 06:54 09:42 Neutrophils # 7.8 H (1.3-7.7) k/uL POC Glucose (mg/dL) 114 H (75-99) mg/dL Microbiology - Last 24 Hours (Table) 12/28/18 14:50 Gram Stain - Final Scrotum Tissue Culture - Final Staphylococcus simulans Gram Positive Bacilli Isolated Assessment and Plan Assessment: - Saskia,s gangrene with scrotal and perineal abscess and necrotizing infection status post drainage and excision of the devitalized tissue - sinus tachycardia improved - Diabetes mellitus2. [id number] - Leukocytosis resolved. - Hypertension - Morbid obesity with BMI 46.1 - GI and DVT prophylaxis Plan: Patient be continued on IV antibiotics in the form of clindamycin and cefepime. Dressing change by urology. ID is on board. Continue with insulin sliding scale. Continue with home blood pressure medications and follow up closely. Further recommendations based on the clinical course. Time with Patient: Greater than 30
--- NOTE | 2019-01-06 23:56 | P.PN ---
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 He was initially admitted to ICU. He had extensive surgery by urology including scrotal expiration with drainage excision of the devitalized tissue from the scrotal and perineal absc ess. He is maintained on 3 IV antibiotics. Infectious disease on board. Patient just came out of the ICU today. On 01/01/2019 Patient says that the pain and swelling is doing much better but is still has swelling He does not complain of any more fevers No chest pain or racing heart 01/02/2019 Patient says that he's been swelling is the same or a little better he says that he is constipated and hasn't had a bowel movement. He is passing gases and has no belly pain 01/03/2019 He says that he had a bowel movement yesterday Still has swelling not getting worse. He still has erythema around the site 01/04/19 says he is doing better pain is getting better 01/05/2019 Patient does have scrotal swelling and pain but is improving. No fever no chills. Currently being continued on IV antibiotics in the form of cefepime and clindamycin. Scrotal wound cultures showed gram-positive cocci and gram- negative bacilli. ID is following. Renal function improved. No difficulty in urination. No complaints of chest pain or shortness of breath. No nausea vomiting or abdominal pain. No diarrhea. No other acute overnight issues. 01/06/2019 Patient denied any complaints of scrotal pain. Continued on IV antibiotics. Overall scrotal swelling and pain is much improved. Urology and ID is following. Anticipate discharge in next 24 hours with final ID recommendations. Patient has been afebrile. No complaints of chest pain or shortness of breath. No headache or dizziness or lightheadedness. Current medications reviewed. Objective - Vital Signs Vital signs: Vital Signs Temp 97.9 F 01/06/19 19:36 Pulse 75 01/06/19 19:36 Resp 16 01/06/19 19:36 BP 116/71 01/06/19 19:36 Pulse Ox 93 L 01/06/19 19:36 Intake & Output 01/06/19 01/06/19 01/07/19 06:59 18:59 06:59 Intake Total 350 770 Output Total 3150 1200 Balance -2800 770 -1200 Weight 137.4 kg Intake: IV 350 Cefepime 2 gm In Sodium 100 Chloride 0.9% 100 ml @ 200 mls/hr IVPB Q12HR JOSE Rx#:[id number] Clindamycin 600 mg In 50 Dextrose 5% in Water 50 ml @ 50 mls/hr IVPB Q8HR JOSE Rx#:[id number] Lactated Ringers 1,000 ml 200 @ 20 mls/hr IV .Q24H JOSE Rx#:[id number] Intake, IV Titration 290 Amount Cefepime 2 gm In Sodium 100 Chloride 0.9% 100 ml @ 200 mls/hr IVPB Q12HR JOSE Rx#:[id number] Clindamycin 600 mg In 50 Dextrose 5% in Water 50 ml @ 50 mls/hr IVPB Q8HR JOSE Rx#:[id number] Lactated Ringers 1,000 ml 140 @ 20 mls/hr IV .Q24H JOSE Rx#:[id number] Oral 480 Output: Urine 3150 1200 Other: Voiding Method Indwelling Catheter Indwelling Catheter # Voids 1,500 - Exam PHYSICAL EXAMINATION: Patient is lying in the bed comfortably, no acute distress, awake alert and oriented.. HEENT: Normocephalic. Neck is supple. Pupils reactive. Nostrils clear. Oral cavity is moist. Ears reveal no drainage. Neck reveals no JVD, carotid bruits, or thyromegaly. CHEST EXAMINATION: Trachea is central. Symmetrical expansion. Lung rangel clear to auscultation and percussion. CARDIAC: Normal S1, S2 with no gallops. No murmurs ABDOMEN: Soft. Bowel sounds normal. No organomegaly. No abdominal bruits. Patient does have scrotal swelling and redness and tenderness and right groin I&D wound. no purulent drainage is noted. Extremities: reveal no edema. No clubbing or cyanosis Neurologically awake, alert, oriented x3 with well-coordinated movements. No focal deficits noted Skin: No rash or skin lesions. Psychiatric: Coperative. Nonsuicidal Musculoskeletal: No joint swelling or deformity. Normal range of motion. 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 [id number] - Leukocytosis resolved. - Hypertension - Morbid obesity with BMI 46.1 - GI and DVT prophylaxis Plan: Patient be continued on IV antibiotics in the form of clindamycin and cefepime. Dressing change by urology. ID is on board. Continue with insulin sliding sca le. Continue with home blood pressure medications and follow up closely. Further recommendations based on the clinical course. Time with Patient: Greater than 30
[2019-01-07] MEDS: CLINDAMYCIN 600 MG in DEXTROSE 5% IN WATER 50 ML IVPB SCH ×6 (01:10→18:01)
[2019-01-07 07:40] LABS: Glucose,Whole Blood 129 mg/dL (75-99)
--- NOTE | 2019-01-07 07:48 | P.PN ---
Progress Note - Text Progress Note Date: 01/07/19 The patient remains afebrile and continues to improve daily. He is ambulatory. His suprapubic and groin erythema has essentially resolved although he continues to have a moderate amount of edema which extends into the scrotum. His left groin incision is clean. There is a small amount of purulent material which has drained from the [place] drain which originates in the right groin and in view of this the drain will not be removed today. The right groin incision is clean except deep around the [place]. The scrotal incision appears clean. The patient's [place] catheter will be removed as he says that he believes he will be able to manage with a urinal. It may be possible to switch the patient to an oral antibiotic such as Augmentin which would eliminate the need for a PICC line at the time of discharge.
[2019-01-07] MEDS: HEPARIN SODIUM,PORCINE 5,000 UNIT/ML 1 ML VIAL SQ SCH ×3 (09:08→22:18)
[2019-01-07] MEDS: metFORMIN 500 MG TAB PO SCH ×2 (09:08→22:13)
[2019-01-07] MEDS: LISINOPRIL 10 MG TAB PO SCH (09:08)
[2019-01-07] MEDS: PANTOPRAZOLE 40 MG TABLET PO SCH (09:08)
[2019-01-07] MEDS: LINAGLIPTIN 5 MG TABLET PO SCH (09:08)
[2019-01-07] MEDS: CEFEPIME 2 GM in SODIUM CHLORIDE 0.9% 100 ML IVPB SCH ×2 (09:09→22:14)
[2019-01-07] MEDS: NICOTINE 14MG/24HR PATCH TRANSDERM SCH (09:10)
[2019-01-07] MEDS: INSULIN ASPART (NovoLOG) 100 UNIT/ML VIAL SQ SCH ×4 (09:16→22:13)
[2019-01-07 12:16] LABS: Glucose,Whole Blood 149 mg/dL (75-99)
[2019-01-07] MEDS: LACTATED RINGERS 1,000 ML IV SCH (12:28)
[2019-01-07] MEDS: MULTIVITAMINS, THERA 1 EACH TAB PO SCH (14:28)
--- NOTE | 2019-01-07 14:54 | P.PN ---
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 He was initially admitted to ICU. He had extensive surgery by urology including scrotal expiration with drainage excision of the devitalized tissue from the scrotal and perineal abscess. He is maintained on 3 IV antibiotics. Infectious disease on board. Patient just came out of the ICU today. On 01/01/2019 Patient says that the pain and swelling is doing much better but is still has swelling He does not complain of any more fevers No chest pain or racing heart 01/02/2019 Patient says that he's been swelling is the same or a little better he says that he is constipated and hasn't had a bowel movement. He is passing gases and has no belly pain 01/03/2019 He says that he had a bowel movement yesterday Still has swelling not getting worse. He still has erythema around the site 01/04/19 says he is doing better pain is getting better 01/05/2019 Patient does have scrotal swelling and pain but is improving. No fever no chills. Currently being continued on IV antibiotics in the form of cefepime and clindamycin. Scrotal wound cultures showed gram-positive cocci and gram- negative bacilli. ID is following. Renal function improved. No difficulty in urination. No complaints of chest pain or shortness of breath. No nausea vomiting or abdominal pain. No diarrhea. No other acute overnight issues. 01/06/2019 Patient denied any complaints of scrotal pain. Continued on IV antibiotics. Overall scrotal swelling and pain is much improved. Urology and ID is followin g. Anticipate discharge in next 24 hours with final ID recommendations. Patient has been afebrile. No complaints of chest pain or shortness of breath. No headache or dizziness or lightheadedness. 01/07/2019 Infectious disease is recommending IV antibiotics. Patient won't cultures are positive for multiple bacteria including anaerobics, and staphylococcal species. As patient the need to go: IV antibiotics and the his insurance issues with trying to figure out the appropriate disposition along with the appropriate plan for IV antibiotics. Because of that reason I may not be able to discharge the patient today. Constitutional: Denied any fatigue denied any fever. Cardio vascular: denied any chest pain, palpitations Gastrointestinal denied any nausea vomiting Pulmonary: Denied any shortness of breath cough Neurologic denied any new focal deficits All inpatient medications were reviewed and appropriate changes in these medications as dictated in the interval history and assessment and plan. Objective - Vital Signs Vital signs: Vital Signs Temp 98.7 F 01/07/19 14:10 Pulse 94 01/07/19 14:10 Resp 20 01/07/19 14:10 BP 116/67 01/07/19 14:10 Pulse Ox 95 01/07/19 14:10 Intake & Output 01/06/19 01/07/19 01/07/19 18:59 06:59 18:59 Intake Total 770 Output Total 2350 600 Balance 770 -2350 -600 Weight 137.4 kg Intake: Intake, IV Titration 290 Amount Cefepime 2 gm In Sodium 100 Chloride 0.9% 100 ml @ 200 mls/hr IVPB Q12HR JOSE Rx#:[id number] Clindamycin 600 mg In 50 Dextrose 5% in Water 50 ml @ 50 mls/hr IVPB Q8HR JOSE Rx#:[id number] Lactated Ringers 1,000 ml 140 @ 20 mls/hr IV .Q24H JOSE Rx#:[id number] Oral 480 Output: Urine 2350 600 Other: Voiding Method Indwelling Catheter Indwelling Catheter Indwelling Catheter # Voids 1,500 1 - Exam PHYSICAL EXAMINATION: Patient is lying in the bed comfortably, no acute distress, awake alert and oriented.. HEENT: Normocephalic. Neck is supple. Pupils reactive. Nostrils clear. Oral cavity is moist. Ears reveal no drainage. Neck reveals no JVD, carotid bruits, or thyromegaly. CHEST EXAMINATION: Trachea is central. Symmetrical expansion. Lung rangel clear to auscultation and percussion. CARDIAC: Normal S1, S2 with no gallops. No murmurs ABDOMEN: Soft. Bowel sounds normal. No organomegaly. No abdominal bruits. Patient does have scrotal swelling and redness and tenderness and right groin I&D wound. no purulent drainage is noted. Extremities: reveal no edema. No clubbing or cyanosis Neurologically awake, alert, oriented x3 with well-coordinated movements. No focal deficits noted Skin: No rash or skin lesions. Psychiatric: Coperative. Nonsuicidal Musculoskeletal: No joint swelling or deformity. Normal range of motion. 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 [id number] - Leukocytosis resolved. - Hypertension - Morbid obesity with BMI 46.1 - GI and DVT prophylaxis Plan: Patient be continued on IV antibiotics in the form of clindamycin and cefepime. Dressing change by urology. Rest of the plan as mentioned in the history
[2019-01-07 16:50] LABS: Glucose,Whole Blood 145 mg/dL (75-99)
[2019-01-07 21:21] LABS: Glucose,Whole Blood 218 mg/dL (75-99)
[2019-01-07] MEDS: INSULIN DETEMIR (LEVEMIR) 100 UNIT/ML SYR SQ SCH (22:13)
[2019-01-08] MEDS: CLINDAMYCIN 600 MG in DEXTROSE 5% IN WATER 50 ML IVPB SCH ×4 (01:05→10:07)
[2019-01-08 06:50] LABS: Glucose,Whole Blood 170 mg/dL (75-99)
[2019-01-08 07:17] VITALS: BP 167/71; PULSE 75; RESP 16; TEMP 97.9
--- NOTE | 2019-01-08 07:46 | P.PN ---
Progress Note - Text Progress Note Date: 01/08/19 The patient is afebrile. His pain is minimal and he is no longer on oral analgesics. His genital edema is decreasing and the glans of his penis is now visible. His incisions appear clean although there is still some purulent discharge from the [place]. It appears that the patient will need IV antibiotics and so a PICC line will need to be placed today. Hopefully the patient can be discharged tomorrow. The [place] drain will most likely be discontinued at that time. The patient will need to continue wound care with periodic irrigation but I believe his girlfriend can assist with this. I will need to see the patient back next week for follow-up.
[2019-01-08] MEDS: INSULIN ASPART (NovoLOG) 100 UNIT/ML VIAL SQ SCH ×2 (07:47→12:32)
[2019-01-08] MEDS: PANTOPRAZOLE 40 MG TABLET PO SCH (07:51)
[2019-01-08] MEDS: metFORMIN 500 MG TAB PO SCH (07:51)
[2019-01-08] MEDS: LISINOPRIL 10 MG TAB PO SCH (07:52)
[2019-01-08] MEDS: LINAGLIPTIN 5 MG TABLET PO SCH (07:52)
[2019-01-08] MEDS: HEPARIN SODIUM,PORCINE 5,000 UNIT/ML 1 ML VIAL SQ SCH (07:52)
[2019-01-08] MEDS: CEFEPIME 2 GM in SODIUM CHLORIDE 0.9% 100 ML IVPB SCH (07:52)
[2019-01-08] MEDS: NICOTINE 14MG/24HR PATCH TRANSDERM SCH (09:41)
[2019-01-08 11:13] LABS: Glucose,Whole Blood 136 mg/dL (75-99)
[2019-01-08] MEDS: LACTATED RINGERS 1,000 ML IV SCH (12:31)
[2019-01-08] MEDS: MULTIVITAMINS, THERA 1 EACH TAB PO SCH (12:34)
--- NOTE | 2019-01-08 12:48 | P.DS ---
Providers Date of admission: 12/28/18 11:20 Attending physician: Taylor Ryan Consults: 12/28/18 11:19 Consult Physician Stat Consulting Provider: Florin Bullard Consult Reason/Comments: fornier's gangreen Do you want consulting provider notified?: Already Contacted 12/28/18 11:21 Consult Physician Routine Consulting Provider: Jesus Leonard Consult Reason/Comments: fornier's gangreen, sepsis Do you want consulting provider notified?: Yes 12/28/18 15:34 Consult Physician Urgent Consulting Provider: Georgia Sprague Consult Reason/Comments: Fornier's gangrene perineum Do you want consulting provider notified?: Yes 12/28/18 15:47 Consult Physician Routine Consulting Provider: Demar Layton Consult Reason/Comments: Perineal abcess Do you want consulting provider notified?: Yes, Notify in am Primary care physician: Mackenzie Caponearlo Hospital Course: 28-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 He was initially admitted to ICU. He had extensive surgery by urology including scrotal expiration with drainage excision of the devitalized tissue from the scrotal and perineal abscess. He is maintained on 3 IV antibiotics. Infectious disease on board. Patient just came out of the ICU today. On 01/01/2019 Patient says that the pain and swelling is doing much better but is still has swelling He does not complain of any more fevers No chest pain or racing heart 01/02/2019 Patient says that he's been swelling is the same or a little better he says that he is constipated and hasn't had a bowel movement. He is passing gases and has no belly pain 01/03/2019 He says that he had a bowel movement yesterday Still has swelling not getting worse. He still has erythema around the site 01/04/19 says he is doing better pain is getting better 01/05/2019 Patient does have scrotal swelling and pain but is improving. No fever no chills. Currently being continued on IV antibiotics in the form of cefepime and clindamycin. Scrotal wound cultures showed gram-positive cocci and gram- negative bacilli. ID is following. Renal function improved. No difficulty in urination. No complaints of chest pain or shortness of breath. No nausea vomiting or abdominal pain. No diarrhea. No other acute overnight issues. 01/06/2019 Patient denied any complaints of scrotal pain. Continued on IV antibiotics. Overall scrotal swelling and pain is much improved. Urology and ID is following. Anticipate discharge in next 24 hours with final ID recommendations. Patient has been afebrile. No complaints of chest pain or shortness of breath. No headache or dizziness or lightheadedness. 01/07/2019 Infectious disease is recommending IV antibiotics. Patient won't cultures are positive for multiple bacteria including anaerobics, and staphylococcal species. As patient the need to go: IV antibiotics and the his insurance issues with trying to figure out the appropriate disposition along with the appropriate plan for IV antibiotics. Because of that reason I may not be able to discharge the patient today. 01/08/2019 Infectious disease is recommending IV Invanz and patient midline was ordered patient will be discharged today. Patient was started on long-acting insulin along with oral hypoglycemic agents. Patient was instructed to check the blood sugars twice a day. PHYSICAL EXAMINATION: GENERAL: The patient is alert and oriented x3, not in any acute distress. Well developed, well nourished. HEENT: Pupils are round and equally reacting to light. EOMI. No scleral icterus. No conjunctival pallor. Normocephalic, atraumatic. No pharyngeal erythema. No t hyromegaly. CARDIOVASCULAR: S1 and S2 present. No murmurs, rubs, or gallops. PULMONARY: Chest is clear to auscultation, no wheezing or crackles. ABDOMEN: Soft, nontender, nondistended, normoactive bowel sounds. No palpable organomegaly. Genitourinary exam: Patient's edema and swelling improved significantly patient is status post incision and drainage surgical site area appears to be clean pat ient still has a [place] drain which will be removed as an outpatient MUSCULOSKELETAL: No joint swelling or deformity. EXTREMITIES: No cyanosis, clubbing, or pedal edema. NEUROLOGICAL: Gross neurological examination did not reveal any focal deficits. SKIN: No rashes. Assessment and Plan Plan: - Ssakia,s gangrene with scrotal and perineal abscess and necrotizing infection status post incision and drainage and debridement - sinus tachycardia improved - Diabetes mellitus2. insulin-dependent - Leukocytosis resolved. - Hypertension - Morbid obesity with BMI 46.1 Patient Condition at Discharge: Fair Plan - Discharge Summary Discharge Rx Participant: No New Discharge Prescriptions: New metFORMIN HCL [Glucophage] 500 mg PO BID #60 tab Insulin Detemir (Levemir) [Levemir] 45 unit SQ HS #1 syr Ibuprofen [Motrin] 400 mg PO Q6HR PRN #30 tab PRN Reason: Pain Ranitidine HCl [Zantac] 150 mg PO BID #30 tab Ertapenem [INVanz] 1 gm IVPB Q24H #14 bag Continue Lisinopril [Zestril] 10 mg PO DAILY sitaGLIPtin PHOS/metFORMIN HCL [Janumet Xr 100-1,000 mg Tablet] 1 tab PO DAILY Discontinued Doxycycline Hyclate 100 mg PO BID #28 tab Discharge Medication List Lisinopril [Zestril] 10 mg PO DAILY 12/25/18 [History] sitaGLIPtin PHOS/metFORMIN HCL [Janumet Xr 100-1,000 mg Tablet] 1 tab PO DAILY 12/28/18 [History] Ibuprofen [Motrin] 400 mg PO Q6HR PRN #30 tab 01/07/19 [Rx] Insulin Detemir (Levemir) [Levemir] 45 unit SQ HS #1 syr 01/07/19 [Rx] Ranitidine HCl [Zantac] 150 mg PO BID #30 tab 01/07/19 [Rx] metFORMIN HCL [Glucophage] 500 mg PO BID #60 tab 01/07/19 [Rx] Ertapenem [INVanz] 1 gm IVPB Q24H #14 bag 01/08/19 [Rx] Follow up Appointment(s)/Referral(s): Jesus Leonard MD [STAFF PHYSICIAN] - 1 Week Mackenzie Holt DO [Primary Care Provider] - 01/11/19 10:00 am [facility], [NON-STAFF] - As Needed Patient Instructions/Handouts: Ranitidine (By mouth), Ibuprofen (By mouth), Metformin (By mouth), Insulin Detemir (By injection), Sepsis (GEN), Abscess (GEN), Gangrene (DC), Type 2 Diabetes in the Older Adult (DC) Discharge Disposition: HOME WITH HOME HEALTH SERVICES
--- NOTE | 2019-01-08 22:52 | P.PN ---
Subjective Progress Note Date: 01/08/19 28-year-old male known history Diabetes mellitus type 2 that has been poorly controlled. He relates that he's had some recent medication changes and his blood sugars have not been nearly as well controlled as they were in the past. It is also related that he often will smoke 2 packs of cigarettes a day when he is stressed and working. 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 The patient relates approximately 6 days before coming to hospital he started to feel poorly with some generalized malaise low-grade fever and discomfort to his scrotum. The following days he had increasing scrotal swelling and discomfort. The day of admission he was feeling very poorly the most inferior aspect of the scrotum was extremely tender and become quite swollen and constantly presented. At the time of admission it was evident that there was some necrosis to the scrotum and urgent surgical consult with urology occurred. The patient is or even taken in the operating room and the surgical debridement has occurred to the scrotum. There was some minimal necrotizing infection and debridement has occurred. Patient was transferred to the intensive care unit shortly thereafter was extubated and is now sitting upright and talking. With this, mouth is very dry and looks forward to being able to drink water in the near future. 12/29/2018 the patient continues to feel somewhat poorly. There is evidence of some ongoing necrotic tissue and urology was taken to the operating room later today. 12/30/2018 patient is status post second surgery for there was further necrotic material along the spermatic cord. The patient has multiple drains in place and is feeling better here time he is uncomfortable is with the dressing change. His fever 101.2 has resolved and so 98.5. Leukocytosis is slightly improved cultures are pending. 12/31/2018 patient is feeling somewhat better. Pain is really better control of does have some headache after he receives his morphine. He is having no fevers. No further surgical interventions were required. 01/07/2019 overall improved definitive a drug eruption and vancomycin has been discontinued. No further fevers. The rash improving. 01/08/2019 patient is now improved further. No further fever. Feeling much better. Pain control is adequate. Has been seen by urology and is being ready for discharge to home. Home IV antibiotic therapy in process. IV access to be placed. Objective - Vital Signs Vital signs: Vital Signs Temp 97.9 F 01/08/19 07:00 Pulse 75 01/08/19 07:00 Resp 16 01/08/19 07:00 BP 167/71 01/08/19 07:00 Pulse Ox 96 01/08/19 07:00 Intake & Output 01/08/19 01/08/19 01/09/19 06:59 18:59 06:59 Intake Total 350 Balance 350 Intake: Oral 350 Other: Voiding Method Urinal Urinal # Voids 1 - Exam HEENT: Anicteric conjunctiva are pink and moist nasal mucosa grossly intact without significant lesions, there is no thrush. Neck: The neck is supple without significant lymphadenopathy or thyromegaly. Lungs: Good bilateral air entry without significant crackles or wheezing. There is no significant bronchial sounds. There is no egophony or dullness. Heart: Regular rate and rhythm with an audible S1-S2, no S3 no S4. There is no significant murmur click or rub, PMI was nondisplaced. Abdomen: Positive bowel sounds soft and nontender without palpable masses or organomegaly. There was no guarding or rebound. Extremities: The upper extremities have excellent pulses they are symmetric, no significant petechiae or telangiectasia. No splinter hemorrhages were noted. The lower extremities are free from significant edema. The peripheral pulses were 2+ and symmetric. Neuro: Awake alert oriented to person place and time. There are no acute new gross focal sensory motor deficits. skin: The scrotum is evidence of the current dressing, the massive swelling is no further improved. The glans can be visualized with minimal maneuver. The extensive scrotal swelling is generally improved. Still has some right suprapubic discomfort but is much improved from 48 hours prior. No ulcers. Drainage is minimal. Only one [place] drain remains. - Labs CBC & Chem 7: 01/06/19 09:42 01/04/19 07:19 Labs: Abnormal Lab Results - Last 24 Hours (Table) 01/08/19 01/08/19 Range/Units 06:49 11:12 POC Glucose (mg/dL) 170 H 136 H (75-99) mg/dL Laboratory Results WBC 10.6 k/uL (3.8-10.6) 01/06/19 09:42 RBC 5.02 m/uL (4.30-5.90) 01/06/19 09:42 Hgb 13.7 gm/dL (13.0-17.5) 01/06/19 09:42 Hct 43.1 % (39.0-53.0) 01/06/19 09:42 MCV 85.9 fL (80.0-100.0) 01/06/19 09:42 MCH 27.4 pg (25.0-35.0) 01/06/19 09:42 MCHC 31.9 g/dL (31.0-37.0) 01/06/19 09:42 RDW 15.2 % (11.5-15.5) 01/06/19 09:42 Plt Count 363 k/uL (150-450) 01/06/19 09:42 Neutrophils % 74 % 01/06/19 09:42 Lymphocytes % 19 % 01/06/19 09:42 Monocytes % 4 % 01/06/19 09:42 Eosinophils % 2 % 01/06/19 09:42 Basophils % 0 % 01/06/19 09:42 Neutrophils # 7.8 k/uL (1.3-7.7) H 01/06/19 09:42 Lymphocytes # 2.0 k/uL (1.0-4.8) 01/06/19 09:42 Monocytes # 0.4 k/uL (0-1.0) 01/06/19 09:42 Eosinophils # 0.2 k/uL (0-0.7) 01/06/19 09:42 Basophils # 0.0 k/uL (0-0.2) 01/06/19 09:42 Hypochromasia Slight 01/06/19 09:42 VBG pH 7.43 (7.31-7.41) H 12/28/18 11:15 VBG pCO2 40 mmHg (37-51) 12/28/18 11:15 VBG HCO3 26 mmol/L (24-28) 12/28/18 11:15 Sodium 138 mmol/L (137-145) 01/04/19 07:19 Potassium 4.2 mmol/L (3.5-5.1) 01/04/19 07:19 Chloride 100 mmol/L (98-107) 01/04/19 07:19 Carbon Dioxide 35 mmol/L (22-30) H 01/04/19 07:19 Anion Gap 3 mmol/L 01/04/19 07:19 BUN 8 mg/dL (9-20) L 01/04/19 07:19 Creatinine 0.39 mg/dL (0.66-1.25) L 01/04/19 07:19 Est GFR (CKD-EPI)AfAm >90 (>60 ml/min/1.73 sqM) 01/04/19 07:19 Est GFR (CKD-EPI)NonAf >90 (>60 ml/min/1.73 sqM) 01/04/19 07:19 Glucose 92 mg/dL (74-99) 01/04/19 07:19 POC Glucose (mg/dL) 136 mg/dL (75-99) H 01/08/19 11:12 POC Glu Slp Teacher ID Miesha Raya 01/08/19 11:[address] Glu mg/dL 226 12/30/18 19:17 Hemoglobin A1c 9.5 % (4.0-6.0) H 12/30/18 19:17 Plasma Lactic Acid Renzo 1.3 mmol/L (0.7-2.0) 12/28/18 11:15 Calcium 8.4 mg/dL (8.4-10.2) 01/04/19 07:19 Phosphorus 4.6 mg/dL (2.5-4.5) H 01/01/19 04:31 Magnesium 1.9 mg/dL (1.6-2.3) 01/01/19 04:31 Total Bilirubin 0.4 mg/dL (0.2-1.3) 12/28/18 11:15 AST 17 U/L (17-59) 12/28/18 11:15 ALT 27 U/L (21-72) 12/28/18 11:15 Alkaline Phosphatase 162 U/L (38-126) H 12/28/18 11:15 Total Protein 6.4 g/dL (6.3-8.2) 12/28/18 11:15 Albumin 3.2 g/dL (3.5-5.0) L 12/28/18 11:15 Vancomycin Trough 11.5 ug/mL 01/04/19 07:19 Microbiology 12/28/18 14:50 Scrotum Gram Stain - Final 12/28/18 14:50 Scrotum Tissue Culture - Final Staphylococcus simulans Gram Positive Bacilli Isolated 12/28/18 11:15 Blood Blood Culture - Final No Growth after 144 hours 12/28/18 14:50 Scrotum Anaerobic Culture - Final Prevotella melaninogenica 12/28/18 14:50 Scrotum Anaerobic Culture - Final Anaerobic Gram Positive Cocci Anaerobic Gm Negative Bacilli Anaerobic Gram Positive Cocci#2 12/28/18 14:50 Scrotum Anaerobic Culture - Final Anaerobic Gram Positive Cocci Anaerobic Gm Negative Bacilli#3 Anaerobic Gm Negative Bacilli#2 12/28/18 14:50 Scrotum Anaerobic Culture - Final Anaerobic Gram Positive Cocci Anaerobic Gm Negative Bacilli#2 12/28/18 14:50 Other - Other Gram Stain - Final 12/28/18 14:50 Other - Other Wound Culture - Final 12/28/18 14:50 Other - Other Gram Stain - Final 12/28/18 14:50 Other - Other Wound Culture - Final 12/28/18 14:50 Other - Other Gram Stain - Final 12/28/18 14:50 Other - Other Wound Culture - Final 12/28/18 23:16 Urine,Catheterized Urine Culture - Final Assessment and Plan (1) Saskia gangrene Narrative/Plan: 28-year-old male presents to Hospital with a six-day history of increasing pain and discomfort to the scrotum and eventually noticed that he was ill with fever and chills and constantly presented to the emergency center. There is evidence of necrotic area of the scrotum and was seen by urology urgently taken to the operating room. He is now status post the incision and drainage and debridement of the scrotum. Upon transfer to the ICU he remained intubated he has now been extubated and is awake and alert without acute changes. He is still having excellent pain control in the postoperative time frame. Antibiotic therapy is appropriate this point in time with cefepime and clindamycin and vancomycin. Clindamycin to reduce toxin production. The harris ent forcefully is not in septic shock and hopefully with antibiotics surgery in his resuscitation will have improvement. We discussed with a girlfriend and sister the significant importance of improvi ng his blood glucose control in a smoking cessation will be extremely important in his healing process. Hemoglobin A1c should be updated. Cultures and response to therapy will drive the antibiotic choices at discharge. When possible and will be assessed and will assist with wound care potentially negative pressure therapy can be utilized. 12/29/2018 the patient is resting comfortably in fever has improved. However there remains some necrotic tissue at the base of the prior debridement site of the scrotum. Urology has evaluated with taking back to the operating room later this afternoon or early evening for further debridement. Cultures are in process and remains under broad-spectrum antibiotic therapy at this time. Blood glucose control is improving. The patient's family is present and we discussed the absolute importance of glucose control after his discharge to allow healing and prevent further infections such as this. Case management team discussions occurred, patient many wound VAC after discharge which may be challenging. As would IV antibiotic therapy. 12/30/2018 patient is feeling better this evening. Fever has improved. Pain is better controlled. Only time is having significant discomfort is with dressing change. Polymicrobial infection is noted however with the final culture results. Continue current extensive antibiotic therapy with cefepime, clindamycin, and vancomycin until we have further data 12/31/2018 patient does feel better. Having no further fever. Urology does not believe any further surgical interventions are required. Continue current antibiotic therapy until final cultures are available. May be able to streamline this in the near future based on culture results. 01/07/2019 cultures are finalized. Continue cefepime and clindamycin. Vancomycin discontinued. Surgical most reveal no evidence of any further surgical intervention currently planned. Discharge plan shall be very difficult. 01/08/2019 patient has further improvement. The swelling is further improved. Only one [place] drain remains which will be removed by urology in the outpatient setting. IV access is being placed with the midline catheter for 2 weeks of Invanz which be given at home setting. He'll follow-up in the office in 2 weeks. With the blood work is requested. Home care is been arranged through [facility]. They for discharge home today. Status: Acute Code(s): N49.3 - SASKIA GANGRENE SNOMED Code(s): 433831655 (2) Sepsis Status: Acute Code(s): A41.9 - SEPSIS, UNSPECIFIED ORGANISM SNOMED Code(s): 16579477 (3) Fever Status: Acute Code(s): R50.9 - FEVER, UNSPECIFIED SNOMED Code(s): 059037204 (4) Uncontrolled type 2 diabetes mellitus with complication Status: Acute Code(s): E11.8 - TYPE 2 DIABETES MELLITUS WITH UNSPECIFIED COMPLICATIONS; E11.65 - TYPE 2 DIABETES MELLITUS WITH HYPERGLYCEMIA SNOMED Code(s): 47546601
== END 2019-01-08 16:29 | disposition home health service (06) | DRG 853 ==
LOC: EC 10:10 → 4MS4W 11:20 → 3NMEDONC 12:33 → 2SICU 15:34 → 4SSUR 01-01 15:37
PROVIDERS: ADMIT Internal Medicine; ATTEND Internal Medicine
PROC: 0JBB0ZZ Excision of Perineum Subcutaneous Tissue and Fascia, Open Approach (ICD-10-PCS; principal; 2018-12-28 12:43)
PROC: 0JBB0ZZ Excision of Perineum Subcutaneous Tissue and Fascia, Open Approach (ICD-10-PCS; 2018-12-29)
DX: A41.1 Sepsis due to other specified staphylococcus (principal); M72.6 Necrotizing fasciitis; J98.11 Atelectasis; L02.215 Cutaneous abscess of perineum; L03.315 Cellulitis of perineum; Z68.42 Body mass index [BMI] 45.0-49.9, adult; E66.01 Morbid (severe) obesity due to excess calories; E11.65 Type 2 diabetes mellitus with hyperglycemia; N49.3 Fournier gangrene; D63.8 Anemia in other chronic diseases classified elsewhere; F17.210 Nicotine dependence, cigarettes, uncomplicated; I10 Essential (primary) hypertension; I89.0 Lymphedema, not elsewhere classified; K59.00 Constipation, unspecified; L27.0 Generalized skin eruption due to drugs and medicaments taken internally; N49.2 Inflammatory disorders of scrotum; G47.33 Obstructive sleep apnea (adult) (pediatric); T36.8X5A Adverse effect of other systemic antibiotics, initial encounter; Z79.84 Long term (current) use of oral hypoglycemic drugs; Z79.899 Other long term (current) drug therapy; Z91.11 Patient's noncompliance with dietary regimen; Z82.49 Family history of ischemic heart disease and other diseases of the circulatory system; Z80.9 Family history of malignant neoplasm, unspecified
CPT/HCPCS: 36410; 36415; 36600; 71045; 74176; 76937; 80048; 80053; 80202; 82803; 83036; 83605; 83735; 84100; 85025; 85027; 87040; 87070; 87075; 87077; 87086; 87186; 87205; 93005; 94002; 94640; 96365; 96366; 96367; 96368; 96375; 99285